=== PATIENT | male | born 1950 | race Caucasian/White ===

== ENCOUNTER 2017-04-10 16:02 | Emergency (ER) | payer MEDICARE, SELFPAY ==
[2017-04-10 16:12] VITALS: BP 150/97; PULSE 67; RESP 18; TEMP 36.7; O2SAT 97; BMI 20.9
[2017-04-10 16:27] VITALS: BMI 20.3
--- NOTE | 2017-04-10 16:41 | XR_ITS ---
EXAM: XR lumbar spine min 4V HISTORY: Back pain ITS.REASON: fall with pain COMPARISON: None FINDINGS: No acute fracture or dislocation is evident. There is multilevel degenerative disc disease from T12 to S1. There has been prior posterior fusion with interpedicular screws at L4 and L5. The interpedicular screws at L5 are somewhat angled inferiorly. It is unknown whether this is acute or normal postsurgical appearance. No obvious fracture of the screw is identified. Disc spacer device is present at L5-S1. There is 4 mm retrolisthesis of L2 on L3, There is 5 mm retrolisthesis of L2-3 on L4 and 4 mm retrolisthesis of L4 on L5. There are prominent anterior osteophytes at multiple levels. There is multilevel facet arthritic changes there is mild lumbar curvature convex left. IMPRESSION: 1. No definite acute fracture. 2. Postsurgical changes with lumbar spondylosis with degenerative disc disease, facet arthritic change, and osteophytosis
--- NOTE | 2017-04-10 16:45 | HMH.EDGENADL ---
ED Disposition Clinical Impression: Exacerbation of chronic back pain DJD (degenerative joint disease), lumbar Qualifiers: Spinal osteoarthritis complication: with radiculopathy Qualified Code(s): M47.26 - Other spondylosis with radiculopathy, lumbar region Disposition: Home, Self-Care Condition on Discharge: Good Instructions: DI for Low Back Pain Prescriptions: Cyclobenzaprine HCl [Flexeril 10mg tablet] 10 mg PO BID 30 Days #60 tab Gabapentin [Neurontin 600mg tablet] 600 mg PO TID #12 tab Ketorolac Tromethamine [Toradol 10mg tablet] 10 mg PO Q12H #10 tab Referrals: Inderjit Camilo MD [Staff Physician] - 3 days (chronic LBP s/p lumbar fixation, uses neurontin, out of medications. ) - Critical Care Critical Care Time: No Attestation: On 04/10/17, the high probability of a clinically significant, sudden or life threatening deterioration of the following system(s) required my full and direct attention, intervention and personal management. The time I documented below is in addition to time spent performing reported procedures but includes the following listed in this critical care notation. Medical Decision Making Vital Signs: 04/10/17 16:12 Temperature 98.0 F Temperature Source Oral Pulse Rate [Brachial] 67 Respiratory Rate 18 Blood Pressure [Right Arm] 150/97 Blood Pressure Mean [Right Arm] 114 Blood Pressure Source [Right Arm] Automatic Cuff Blood Pressure Position [Right Arm] Sitting 02 Sat by Pulse Oximetry 97 Oxygen Delivery Method Room Air Orders (Tests/Meds): ED MEDICATIONS Discontinued Medications Generic Name Dose Route Start Last Admin Trade Name Freq PRN Reason Stop Dose Admin Ketorolac Tromethamine 60 mg 04/10/17 16:43 Toradol 60mg/2ml Vial IM 04/10/17 16:44 ONCE ONE Ketorolac Tromethamine 60 mg 04/10/17 16:51 04/10/17 16:57 Toradol 60mg/2ml Vial IM 04/10/17 16:52 60 mg ONCE ONE Administration ORDERS Category Date Time Status Lumbar spine minimum 4 views [XR lumbar spine min 4V] Exams 04/10/17 16:41 Taken Stat - Radiology Data #1 Image Reviewed: Yes I reviewed the patient's radiology results Preliminary Findings: Abnormal (Postop changes, djd, no fracture or subluxation. ) - Kevin Inquiry Pt receiving controlled substance: No Kevin was queried for this patient: No General Adult HPI - General Chief complaint: Back Pain/Injury Stated complaint: AO [id number] Lower Back pain Mode of Arrival: Ambulatory Source of Information: Patient Limitations: No Limitations Description of Symptoms (Recalled from ER Triage Doc. by RN): back pain - History of Present Illness HPI narrative: 66 years old white male with history of spondylolithasis status post lumbar fixation 2012, he was cleaning chimney yesterday when he landed on his legs and had a wide split. Denies having direct back injury. Is been experiencing lower back pain that is radiating to both lower extremities since yesterday. Denies having weakness or numbness, is no loss of urine or bowel. Onset (ago): day(s) (Since yesterday.) Location: back, buttocks, lower extremity Radiation: extremity Severity scale (1-10): 6 Quality: sharp Consistency: constant Relieving factors: none, rest Exacerbating factors: movement Associated symptoms: denies other symptoms Treatments prior to arrival: none - Related Data Previous Rx's Medication Instructions Recorded Cyclobenzaprine HCl [Flexeril 10mg 10 mg PO BID 30 Days #60 tab 04/10/17 tablet] Gabapentin [Neurontin 600mg 600 mg PO TID #12 tab 04/10/17 tablet] Ketorolac Tromethamine [Toradol 10 mg PO Q12H #10 tab 04/10/17 10mg tablet] Allergies Allergy/AdvReac Type Severity Reaction Status Date / Time No Known Allergies Allergy Verified 04/10/17 16:41 [facility] History I have reviewed the patient's past medical history: Yes (I read the patient operative report from 2012.) Medical History: Re
--- NOTE | 2017-04-10 16:48 | ED_ITS ---
ED Disposition Clinical Impression: Exacerbation of chronic back pain DJD (degenerative joint disease), lumbar Qualifiers: Spinal osteoarthritis complication: with radiculopathy Qualified Code(s): M47.26 - Other spondylosis with radiculopathy, lumbar region Disposition: Home, Self-Care Condition on Discharge: Good Instructions: DI for Low Back Pain Prescriptions: Cyclobenzaprine HCl [Flexeril 10mg tablet] 10 mg PO BID 30 Days #60 tab Gabapentin [Neurontin 600mg tablet] 600 mg PO TID #12 tab Ketorolac Tromethamine [Toradol 10mg tablet] 10 mg PO Q12H #10 tab Referrals: Inderjit Camilo MD [Staff Physician] - 3 days (chronic LBP s/p lumbar fixation, uses neurontin, out of medications. ) - Critical Care Critical Care Time: No Attestation: On 04/10/17, the high probability of a clinically significant, sudden or life threatening deterioration of the following system(s) required my full and direct attention, intervention and personal management. The time I documented below is in addition to time spent performing reported procedures but includes the following listed in this critical care notation. Medical Decision Making Vital Signs: 04/10/17 16:12 Temperature 98.0 F Temperature Source Oral Pulse Rate [Brachial] 67 Respiratory Rate 18 Blood Pressure [Right Arm] 150/97 Blood Pressure Mean [Right Arm] 114 Blood Pressure Source [Right Arm] Automatic Cuff Blood Pressure Position [Right Arm] Sitting 02 Sat by Pulse Oximetry 97 Oxygen Delivery Method Room Air Orders (Tests/Meds): ED MEDICATIONS Discontinued Medications Generic Name Dose Route Start Last Admin Trade Name Freq PRN Reason Stop Dose Admin Ketorolac Tromethamine 60 mg 04/10/17 16:43 Toradol 60mg/2ml Vial IM 04/10/17 16:44 ONCE ONE Ketorolac Tromethamine 60 mg 04/10/17 16:51 04/10/17 16:57 Toradol 60mg/2ml Vial IM 04/10/17 16:52 60 mg ONCE ONE Administration ORDERS Category Date Time Status Lumbar spine minimum 4 views [XR lumbar spine min 4V] Exams 04/10/17 16:41 Taken Stat - Radiology Data #1 Image Reviewed: Yes I reviewed the patient's radiology results Preliminary Findings: Abnormal (Postop changes, djd, no fracture or subluxation. ) - Kevin Inquiry Pt receiving controlled substance: No Kevin was queried for this patient: No General Adult HPI - General Chief complaint: Back Pain/Injury Stated complaint: AO [id number] Lower Back pain Mode of Arrival: Ambulatory Source of Information: Patient Limitations: No Limitations Description of Symptoms (Recalled from ER Triage Doc. by RN): back pain - History of Present Illness HPI narrative: 66 years old white male with history of spondylolithasis status post lumbar fixation 2012, he was cleaning chimney yesterday when he landed on his legs and had a wide split. Denies having direct back injury. Is been experiencing lower back pain that is radiating to both lower extremities since yesterday. Denies having weakness or numbness, is no loss of urine or bowel. Onset (ago): day(s) (Since yesterday.) Location: back, buttocks, lower extremity Radiation: extremity Severity scale (1-10): 6 Quality: sharp Consistency: constant Relieving factors: none, rest Exacerbating factors: movement Associated symptoms: denies other s
[2017-04-10 18:13] VITALS: BP 147/85; PULSE 75; RESP 18; O2SAT 98
== END 2017-04-10 18:17 | disposition home or self-care (01) ==
PROVIDERS: Emergency Provider Emergency Medicine
DX: M47.26 Other spondylosis with radiculopathy, lumbar region (principal); J44.9 Chronic obstructive pulmonary disease, unspecified; F17.210 Nicotine dependence, cigarettes, uncomplicated; M54.5 Low back pain; Z79.899 Other long term (current) drug therapy
CPT/HCPCS: 72110; 96372; 99282; 99283

== ENCOUNTER → 2017-04-30 17:38 | Outpatient (REF) | payer MEDICARE, SELFPAY ==
[2017-05-01 17:14] LABS: Amphetamine/Metha Screen,Urine Negative ng/mL (<1000); Barbiturates Screen,Urine Negative ng/mL (<200); Benzodiazepines Screen,Urine Negative ng/mL (200); Cannabinoid Screen,Urine Negative ng/mL (<50); Cocaine Screen,Urine Negative ng/g (<300); Methadone Screen,Urine Negative ng/mL (<300); Opiate Screen,Urine Negative ng/mL (<300); Phencyclidine Screen,Urine Negative ng/mL (<25)
== END ==
LOC: LAB 17:38
PROVIDERS: Visit Provider Nurse Practitioner Family
DX: Z79.899 Other long term (current) drug therapy (principal); M54.9 Dorsalgia, unspecified
CPT/HCPCS: 80305

== ENCOUNTER → 2017-05-21 09:19 | Outpatient (CLI) | payer MEDICARE, MEDICAID, SELFPAY ==
--- NOTE | 2017-05-21 09:23 | MR_ITS ---
MR lumbar spine wo con HISTORY: Low back pain with bilateral leg pain and numbness and tingling ORDERING PHYSICIAN: Irvin Moore PATIENT AGE: 66 years COMPARISON: Radiograph of 04-10-17 TECHNIQUE: Standard multiplanar multiecho sequences are performed without contrast. 3-D MIP and myelographic images are also rendered and reviewed FINDINGS: Spinal cord ends at the L1 level. T11-T12: Mild degenerative disc disease with anterior osteophytes. T12-L1: Mild degenerative disc disease with bulging disc and mild left-sided foraminal narrowing. L1-L2: Anterior osteophytes. Minimal bulging disc. L2-L3: Anterior osteophytes with mild facet hypertrophy and mild bilateral foraminal narrowing. L3-L4: Severe degenerative disc disease with bulging disc and mild retrolisthesis of L3 of 2 to 3 mm. There is facet hypertrophic change with moderate right foraminal narrowing and [id number] left foraminal narrowing. Facet hypertrophic changes are present causing some minimal impingement on the nerve root on the right in the right lateral recess L4-5: Degenerative disc disease with bulging disc along facet and ligamentum flavum hypertrophy with moderate to severe bilateral foraminal narrowing L5-S1: Postsurgical changes with interpedicular screws at L5 and S1. Degenerative disc disease at level with mild bilateral foraminal narrowing and prominent artifact from the interpedicular screws. IMPRESSION: 1 Abnormal MRI lumbar spine with multilevel lumbar spondylosis with degenerative disc disease, bulging disc, facet and ligamentum flavum hypertrophy with lateral recess and foraminal narrowing as detailed above worse at the L3-L4 and L4-L5 level. Please see above for detailed description at each level. 2. Postsurgical changes at L5-S1. 3. No obvious disc herniation.
--- NOTE | 2017-05-21 09:23 | MR_ITS ---
MR cervical spine wo con, MR 3-d myelogram/MRCP HISTORY: Neck pain with bilateral arm weakness and bilateral shoulder pain with bilateral scapular pain. ORDERING PHYSICIAN: Irvin Moore PATIENT AGE: 66 years COMPARISON: None TECHNIQUE: Standard multiplanar multiecho sequences are performed without contrast. 3-D MIP and myelographic images are also rendered and reviewed FINDINGS: The craniocervical junction has an unremarkable appearance. C2-C3: Unremarkable. C3-C4: Disc disease with mild retrolisthesis of C3 by nearly 3 mm with broad-based disc osteophyte complex with canal stenosis of 8 mm and minimal flattening of the anterior aspect of the cord. There is bilateral foraminal narrowing with uncovertebral and facet hypertrophy C4-C5: Mild degenerative disc disease with bulging disc along with facet and uncovertebral hypertrophy with bilateral foraminal narrowing greater on the left. Minimal central disc protrusion C5-C6: Mild concentric bulging disc with 3 mm anterolisthesis of C5 with minimal flattening of the anterior aspect of the cord. Mild right foraminal narrowing. Minimal central disc protrusion with minimal flattening of the cord centrally and anteriorly. C6-C7: Degenerative disc disease with bulging disc eccentric to the left along with facet hypertrophy with bilateral foraminal narrowing and moderate left lateral recess narrowing and minimal flattening of the cord anteriorly on the left. Mild kyphosis at C6-C7. C7-T1: Degenerative disc disease. T2-T3: Degenerative disc disease with bulging disc. IMPRESSION: Abnormal MRI of the cervical spine with multilevel cervical spondylosis with bulging disc, disc osteophyte complexes, canal narrowing, facet and uncovertebral hypertrophy and foraminal narrowing. There is some mild flattening of the cord at multiple levels. Please see above for detail.
== END ==
PROVIDERS: PCP Nurse Practitioner Family; Visit Provider Orthopaedic Surgery Adult Reconstructive Orthopaedic Surgery
DX: M54.2 Cervicalgia (principal); M54.5 Low back pain
CPT/HCPCS: 72141; 72148; 76376

== ENCOUNTER 2017-06-07 11:52 | Emergency (ER) | payer MEDICARE, MEDICAID, SELFPAY ==
[2017-06-07 11:56] VITALS: BP 138/95; PULSE 86; RESP 20; TEMP 36.8; O2SAT 99; BMI 22.1
[2017-06-07 12:19] VITALS: BP 166/92; PULSE 99; RESP 20; TEMP 36.7; O2SAT 100; BMI 22.1
--- NOTE | 2017-06-07 12:22 | XR_ITS ---
XR knee LT 2V HISTORY: Posttraumatic pain ITS.REASON: FELL ORDERING PHYSICIAN: Emily Edmond PATIENT AGE: 66 years COMPARISON: None FINDINGS: There are mild osteoarthritic changes involving all 3 compartments greatest in the lateral compartment with chondrocalcinosis of both the medial and lateral meniscus. No acute fracture or dislocation is evident. IMPRESSION: Osteoarthritic change with chondrocalcinosis. No acute fracture
--- NOTE | 2017-06-07 12:57 | HMH.EDUTC ---
[facility] [place] Impression: Knee pain Qualifiers: Chronicity: acute Laterality: left Qualified Code(s): M25.562 - Pain in left knee Disposition: Home, Self-Care Condition on Discharge: Good Instructions: Contusion, DI for Knee Pain Additional Instructions: *weight bearing as tolerated *RICE, Rest the extremity, Ice 15-20 minutes 3-4 times daily, Compress- wear the rajendra wrap as discussed as much as possible to help reduce swelling and pain, Elevate the extremity when at rest *Rajendra wrap is for support and help control swelling, use it except in the shower. Be sure that is not to tight but not to loose either *Elevate when resting *Ibuprofen very 6-8 hours as needed for pain an inflammation. If need something more can take Tylenol in between doses of Ibuprofen to help Immediately follow up for new or worsening of symptoms, or no noticeable improvement over the next 3-5 days Prescriptions: Etodolac [Etodolac 200mg Cap] 200 mg PO Q6 PRN #20 cap PRN Reason: Moderate Pain Referrals: Fatemeh Damon APRN [Primary Care Provider] - Time of Disposition: 13:58 Medical Decision Making - Medical Records Medical records reviewed: Yes: I reviewed the patient's medical records. Vital Signs: 06/07/17 11:56 06/07/17 12:19 06/07/17 13:34 Temperature 98.3 F 98.1 F 20 F L Temperature Source Oral Temporal Artery Scan Pulse Rate 88 Pulse Rate [Right Radial] 86 99 H Respiratory Rate 20 20 20 Blood Pressure 160/90 Blood Pressure [Right Arm] 138/95 166/92 Blood Pressure Mean [Right Arm] 109 116 Blood Pressure Source [Right Arm] Automatic Cuff Automatic Cuff Blood Pressure Position [Right Arm] Sitting Sitting 02 Sat by Pulse Oximetry 99 100 Oxygen Delivery Method Room Air Room Air Orders (Tests/Meds): ORDERS Category Date Time Status Knee XR left 2 views [XR knee LT 2V] Stat Exams 06/07/17 12:22 Taken - Radiology Data #1 Image(s): Knee Image Reviewed: Yes I reviewed the patient's radiology results Preliminary Findings: No Fracture Seen No fracture seen will have Radiologist do official reading and call patient if any findings and have patient follow up with family doctor - Kevin Inquiry Pt receiving controlled substance: No Kevin was queried for this patient: No - Reevaluation(s) Time: 13:00 Reevaluation #1: Requested that ER physican Dr Rosas to view xray for second opinion [facility] [place] - General Stated complaint: AO fell hit knee on stairs Mode of Arrival: Ambulatory Source of Information: Patient Limitations: No Limitations Description of Symptoms (Recalled from Triage Doc. by RN): FELL 2 DAYS AGO, INJURED LEFT KNEE HEENT Symptoms (Recalled from RN notes): No Resp Symptoms (Recalled from RN notes): No Skin Symptoms (Recalled from RN notes): No MS Symptoms (Recalled from RN notes): Yes Functional Status (Recalled from RN notes): N - History of Present Illness Provider Complaint: Patient state that he was walking up steps when he tripped and fell and struck his knee on the stairs States that ever since he has been having pain in his knee when he tries to bend his knee State he fell two days ago and has been putting ice on it but still feels sore so he came in to get xray - Related Data Home Medications Medication Instructions Recorded Confirmed gabapentin 600 mg tablet 600 mg PO TID 04/30/17 hydrocodone 10 mg-acetaminophen 1 tab PO Q4-6H PRN 04/30/17 325 mg tablet Previous Rx's Medication Instructions Recorded Cyclobenzaprine HCl [Flexeril 10mg 10 mg PO BID 30 Days #60 tab 04/10/17 tablet] lisinopril 30 mg tablet 30 mg PO QDAY #30 tab 04/30/17 Etodolac [Etodolac 200mg Cap] 200 mg PO Q6 PRN #20 cap 06/07/17 Allergies Allergy/AdvReac Type Severity Reaction Status Date / Time No Known Allergies Allergy Verified 04/30/17 15:49 - Worker's Comp Is this a Worker's Comp case?: No [facility] History I have reviewed the patient's past medical hist
--- NOTE | 2017-06-07 13:04 | ED_ITS ---
[facility] [place]ression: Knee pain Qualifiers: Chronicity: acute Laterality: left Qualified Code(s): M25.562 - Pain in left knee Disposition: Home, Self-Care Condition on Discharge: Good Instructions: Contusion, DI for Knee Pain Additional Instructions: *weight bearing as tolerated *RICE, Rest the extremity, Ice 15-20 minutes 3-4 times daily, Compress- wear the rajendra wrap as discussed as much as possible to help reduce swelling and pain, Elevate the extremity when at rest *Rajendra wrap is for support and help control swelling, use it except in the shower. Be sure that is not to tight but not to loose either *Elevate when resting *Ibuprofen very 6-8 hours as needed for pain an inflammation. If need something more can take Tylenol in between doses of Ibuprofen to help Immediately follow up for new or worsening of symptoms, or no noticeable improvement over the next 3-5 days Prescriptions: Etodolac [Etodolac 200mg Cap] 200 mg PO Q6 PRN #20 cap PRN Reason: Moderate Pain Referrals: Fatemeh Damon APRN [Primary Care Provider] - Time of Disposition: 13:58 Medical Decision Making - Medical Records Medical records reviewed: Yes: I reviewed the patient's medical records. Vital Signs: 06/07/17 11:56 06/07/17 12:19 06/07/17 13:34 Temperature 98.3 F 98.1 F 20 F L Temperature Source Oral Temporal Artery Scan Pulse Rate 88 Pulse Rate [Right Radial] 86 99 H Respiratory Rate 20 20 20 Blood Pressure 160/90 Blood Pressure [Right Arm] 138/95 166/92 Blood Pressure Mean [Right Arm] 109 116 Blood Pressure Source [Right Arm] Automatic Cuff Automatic Cuff Blood Pressure Position [Right Arm] Sitting Sitting 02 Sat by Pulse Oximetry 99 100 Oxygen Delivery Method Room Air Room Air Orders (Tests/Meds): ORDERS Category Date Time Status Knee XR left 2 views [XR knee LT 2V] Stat Exams 06/07/17 12:22 Taken - Radiology Data #1 Image(s): Knee Image Reviewed: Yes I reviewed the patient's radiology results Preliminary Findings: No Fracture Seen No fracture seen will have Radiologist do official reading and call patient if any findings and have patient follow up with family doctor - Kevin Inquiry Pt receiving controlled substance: No Kevin was queried for this patient: No - Reevaluation(s) Time: 13:00 Reevaluation #1: Requested that ER physican Dr Rosas to view xray for second opinion [facility] [place] - General Stated complaint: AO fell hit knee on stairs Mode of Arrival: Ambulatory Source of Information: Patient Limitations: No Limitations Description of Symptoms (Recalled from Triage Doc. by RN): FELL 2 DAYS AGO, INJURED LEFT KNEE HEENT Symptoms (Recalled from RN notes): No Resp Symptoms (Recalled from RN notes): No Skin Symptoms (Recalled from RN notes): No MS Symptoms (Recalled from RN notes): Yes Functional Status (Recalled from RN notes): N - History of Present Illness Provider Complaint: Patient state that he was walking up steps when he tripped and fell and struck his knee on the stairs States that ever since he has been having pain in his knee when he tries to bend his knee State he fell two days ago and has been putting ice on it but still feels sore so he came in to get xray - Related Data Home Medications Medication Instructions Recorded Confirmed gabapentin 600 mg tablet 600 mg PO TID 04/30/17 hy
[2017-06-07 13:34] VITALS: BP 160/90; PULSE 88; RESP 20; TEMP -6.6; TEMP 20
== END 2017-06-07 14:16 | disposition home or self-care (01) ==
LOC: ER 12:06 → UTC 12:08
PROVIDERS: Emergency Provider Nurse Practitioner; PCP Nurse Practitioner Family
DX: M25.562 Pain in left knee (principal); W18.43XA Slipping, tripping and stumbling without falling due to stepping from one level to another, initial encounter
CPT/HCPCS: 73560; 99202

== ENCOUNTER → 2017-06-19 14:31 | Outpatient (POV) | payer MEDICARE, MEDICAID, SELFPAY ==
[2017-06-19 14:44] VITALS: BP 204/118; PULSE 104; RESP 24; O2SAT 99; BMI 22.1
--- NOTE | 2017-06-19 16:11 | HMH.PMCON ---
Assessment and Plan (1) Postlaminectomy syndrome Current visit: Yes Status: Chronic Category: Medical Code(s): M96.1 - Postlaminectomy syndrome, not elsewhere classified (2) Neck pain Current visit: No Status: Chronic Category: Medical Code(s): M54.2 - Cervicalgia (3) Back pain Current visit: No Status: Chronic Qualifiers: Back pain location: low back pain Chronicity: chronic Back pain laterality: midline Sciatica presence: unspecified whether sciatica present Qualified Code(s): M54.5 - Low back pain; G89.29 - Other chronic pain Category: Medical Code(s): M54.9 - Dorsalgia, unspecified - Assessment and plan all Dx Assessment and Plan for all problems:: Patient and I discussed in great detail intrathecal pain pump therapy. I believe that this would be very advantageous for the patient due to his symptomology along with his continuing degeneration. Patient has tried and failed injections, surgery, physical therapy. I believe that this therapy would help him become more functional. We discussed the psychological evaluation and trialing process. I gave the patient information on this and he is going to discuss with his and call the office with any questions. If he decides that he would like to move forward with this therapy we would be more than happy to schedule him a psychological evaluation. Patient is asking about medications today. I told him that it was our policy that we do not write any medications on the initial evaluation. I also discussed the necessity of being off opioids prior to intrathecal pain pump trial. We will follow-up with this patient if he decides to move forward with intrathecal pain pump therapy. This note was dictated using voice recognition software and may contain errors or omissions HPI - Data of Consult Consult date: 06/19/17 Requesting Physician: Lucy Grace APRN Primary Care Provider: Fatemeh Damon APRN - Consult Narrative Reason for consult: back and neck pain History of present illness: Mr. Ferguson is a 66 year old male who presents today for consult in regards to his chronic neck and back pain. Patient has had surgery in the past. Patient has had a gradual increase of pain over the years. Patient lived in [place] and had his first surgery there. Patient then moved to [place] and then eventually to [place]. Patient was seen by a pain physician in [place] and given mole injections including epidurals and trigger point injections. Patient states he got no relief from these injections. Patient states his pain is a 7 out of 10. He states that his pain goes from his neck and radiates into his shoulders and then from his low back radiating into his bilateral legs. He states it is numb and tingling and has sensation loss in both legs. Patient states movement and positioning increased pain while lying flat on back with pillows under his knees decrease pain. Patient has tried multiple medications to get pain relief. Patient states that at this time he is not on any pain medication. Patient has been seen by Dr. Boateng being [place] and was sent to a neurosurgeon in [place] however he was unable to make that appointment. Patient does have a recent MRI showing postlaminectomy syndrome and other chronic changes. Patient and I discussed in detail her intrathecal pain pump therapy. I believe that this will be very beneficial for him given his symptomology. CC: Lucy Grace APRN [facility] History I have reviewed the patient's past medical history: Yes Medical History: Reports:: Hypertension Other Medical History: Reports: Arthritis Other Surgeries: Yes: Other (BACK FUSIONS) Amputation: No Fractures: No - *Social History Educational Level: Completed High School Smoking Status: Current every day smoker Tobacco Type: cigarettes # Packs/Day (cigarettes): 5 Alcohol Intake: never Substance Use Type: denies use Occupational Status: disabled
--- NOTE | 2017-06-19 16:14 | P.CONS_ITS ---
Assessment and Plan (1) Postlaminectomy syndrome Current visit: Yes Status: Chronic Category: Medical Code(s): M96.1 - Postlaminectomy syndrome, not elsewhere classified (2) Neck pain Current visit: No Status: Chronic Category: Medical Code(s): M54.2 - Cervicalgia (3) Back pain Current visit: No Status: Chronic Qualifiers: Back pain location: low back pain Chronicity: chronic Back pain laterality: midline Sciatica presence: unspecified whether sciatica present Qualified Code(s): M54.5 - Low back pain; G89.29 - Other chronic pain Category: Medical Code(s): M54.9 - Dorsalgia, unspecified - Assessment and plan all Dx Assessment and Plan for all problems:: Patient and I discussed in great detail intrathecal pain pump therapy. I believe that this would be very advantageous for the patient due to his symptomology along with his continuing degeneration. Patient has tried and failed injections, surgery, physical therapy. I believe that this therapy would help him become more functional. We discussed the psychological evaluation and trialing process. I gave the patient information on this and he is going to discuss with his and call the office with any questions. If he decides that he would like to move forward with this therapy we would be more than happy to schedule him a psychological evaluation. Patient is asking about medications today. I told him that it was our policy that we do not write any medications on the initial evaluation. I also discussed the necessity of being off opioids prior to intrathecal pain pump trial. We will follow-up with this patient if he decides to move forward with intrathecal pain pump therapy. This note was dictated using voice recognition software and may contain errors or omissions HPI - Data of Consult Consult date: 06/19/17 Requesting Physician: Lucy Grace APRN Primary Care Provider: Fatemeh Damon APRN - Consult Narrative Reason for consult: back and neck pain History of present illness: Mr. Ferguson is a 66 year old male who presents today for consult in regards to his chronic neck and back pain. Patient has had surgery in the past. Patient has had a gradual increase of pain over the years. Patient lived in [place] and had his first surgery there. Patient then moved to [place] and then eventually to [place]. Patient was seen by a pain physician in [place] and given mole injections including epidurals and trigger point injections. Patient states he got no relief from these injections. Patient states his pain is a 7 out of 10. He states that his pain goes from his neck and radiates into his shoulders and then from his low back radiating into his bilateral legs. He states it is numb and tingling and has sensation loss in both legs. Patient states movement and positioning increased pain while lying flat on back with pillows under his knees decrease pain. Patient has tried multiple medications to get pain relief. Patient states that at this time he is not on any pain medication. Patient has been seen by Dr. Boateng being [place] and was sent to a neurosurgeon in [place] however he was unable to make that appointment. Patient does have a recent MRI showing postlaminectomy syndrome and other chronic changes. Patient and I discussed in detail her intrathecal pain pump therapy. I believe that this will be very beneficial for him given his symptomology. CC: Lucy Grace APRN [facility] History I have reviewed the patient's past medical history: Yes Medical History: Reports:: Hypertension Other Medical History: Reports: Arthritis Other Surgeries:
== END ==
PROVIDERS: PCP Nurse Practitioner Family; Visit Provider Clinical Nurse Specialist Family Health
DX: M96.1 Postlaminectomy syndrome, not elsewhere classified (principal); M54.2 Cervicalgia
CPT/HCPCS: 99202

== ENCOUNTER → 2017-08-27 13:30 | Outpatient (POV) | payer MEDICARE, MEDICAID, SELFPAY ==
[2017-08-27 13:31] VITALS: BP 129/99; PULSE 107; RESP 20; O2SAT 99; BMI 22.1
--- NOTE | 2017-08-27 13:51 | HMH.PAINSOAP ---
[facility] Pain Management SOAP Note Subjective:: Is a 66-year-old male who presents today for follow-up. Patient was consulted back in June. Patient was given information on intrathecal pain pump therapy. Patient is uninterested in this at this time. Patient states he would like medication. Patient states that it is only thing that works for him. Patient does not want to do any injections nor any other conservative measures. Patient has been seen by a pain physician in [place]. Patient states he is tried multiple medications for pain relief. Patient states he is being medically managed currently by Dr. Mathur. Patient states that Dr. Mathur is no longer going to medically manage him in and was told to go somewhere else. I discussed with the patient that we try to stay away from opioids. Patient is uninterested in this. I did discuss a neurostimulator with the patient he was also interested in this. I discussed with the patient potential other pain management. Patient states he does not have transportation to go to any other doctors appointments. This concerns me due to potential pill count failures or other compliance monitoring issues. And is unhappy at this time with this assessment. Patient rates his pain a 6 out of 10 today. ROS General: no recent weight change, no fever, no sleep disturbances Respiratory: no cough, no shortness of air, no recurring pulmonary infections Cardiovascular/Peripheral Vascular: No chest pain, No palpitations, no edema, no shortness of breath. Gastrointestinal: no incontinence, normal bowel movements reported Genitourinary: no incontinence Musculoskeletal: Back pain Psychiatric: normal mood/ affect Neurological: [denies weakness in extremities], [denies balance issues] Objective:: Physical Exam General: Alert and oriented x3, no acute distress, pleasant and cooperative, [on room air] Lungs: Resps E/U, Symmetrical chest expansion, Eyes: PERRL Musculoskeletal: Flexion and extension of lumbar spine somewhat guarded secondary to pain, deep tendon reflexes normal, strength in upper and lower extremities [5/5], [abnormal gait noted] Neurological: speech clear, featheredger and reducer machine equal, no gross sensory deficits Assessment:: Postlaminectomy syndrome, neck pain, back pain Plan:: Patient upset when he left. Patient interested in medication management only. I gave him several options he was uninterested in this. I recommended he follow-up with his primary care physician. I also recommended he potentially go to another pain management clinic however he states that he has transportation issues. Patient states that his insurance is just being charged and he is having to pay for multiple physician appointments. Patient will not be returning. This note was dictated using voice recognition software and may contain errors or omissions
--- NOTE | 2017-08-27 13:55 | P.CONS_ITS ---
[facility] Pain Management SOAP Note Subjective:: Is a 66-year-old male who presents today for follow-up. Patient was consulted back in June. Patient was given information on intrathecal pain pump therapy. Patient is uninterested in this at this time. Patient states he would like medication. Patient states that it is only thing that works for him. Patient does not want to do any injections nor any other conservative measures. Patient has been seen by a pain physician in [place]. Patient states he is tried multiple medications for pain relief. Patient states he is being medically managed currently by Dr. Mathur. Patient states that Dr. Mathur is no longer going to medically manage him in and was told to go somewhere else. I discussed with the patient that we try to stay away from opioids. Patient is uninterested in this. I did discuss a neurostimulator with the patient he was also interested in this. I discussed with the patient potential other pain management. Patient states he does not have transportation to go to any other doctors appointments. This concerns me due to potential pill count failures or other compliance monitoring issues. And is unhappy at this time with this assessment. Patient rates his pain a 6 out of 10 today. ROS General: no recent weight change, no fever, no sleep disturbances Respiratory: no cough, no shortness of air, no recurring pulmonary infections Cardiovascular/Peripheral Vascular: No chest pain, No palpitations, no edema, no shortness of breath. Gastrointestinal: no incontinence, normal bowel movements reported Genitourinary: no incontinence Musculoskeletal: Back pain Psychiatric: normal mood/ affect Neurological: [denies weakness in extremities], [denies balance issues] Objective:: Physical Exam General: Alert and oriented x3, no acute distress, pleasant and cooperative, [ on room air] Lungs: Resps E/U, Symmetrical chest expansion, Eyes: PERRL Musculoskeletal: Flexion and extension of lumbar spine somewhat guarded secondary to pain, deep tendon reflexes normal, strength in upper and lower extremities [5/5], [abnormal gait noted] Neurological: speech clear, fashion supervisor equal, no gross sensory deficits Assessment:: Postlaminectomy syndrome, neck pain, back pain Plan:: Patient upset when he left. Patient interested in medication management only. I gave him several options he was uninterested in this. I recommended he follow -up with his primary care physician. I also recommended he potentially go to another pain management clinic however he states that he has transportation issues. Patient states that his insurance is just being charged and he is having to pay for multiple physician appointments. Patient will not be returning. This note was dictated using voice recognition software and may contain errors or omissions
== END ==
PROVIDERS: PCP Emergency Medicine; Visit Provider Clinical Nurse Specialist Family Health
DX: M54.9 Dorsalgia, unspecified (principal); M54.2 Cervicalgia
CPT/HCPCS: 99212

== ENCOUNTER → 2017-08-29 09:05 | Outpatient (CLI) | payer MEDICARE, MEDICAID, SELFPAY ==
[2017-08-29 09:16] LABS: Microscopic, Urine URINE MICROSCOPIC (MICROSCOPIC)
[2017-08-29 09:44] LABS: Basophils # 0.1 K/mm3 (0-0.2); Basophils % 0.7 % (0.1-2.0); Eosinophils # 0.2 K/mm3 (0.0-0.4); Eosinophils % 1.7 % (0.1-12.0); Hematocrit 37.1 % (42.0-52.0); Hemoglobin 12.3 g/dL (14.1-18.0); Lymphocytes # 2.4 K/mm3 (0.7-4.5); Lymphocytes % 28.1 K/mm3 (10-50); Mean Corpuscular HGB Conc 33.2 g/dL (31.8-35.4); Mean Corpuscular Hemoglobin 29.2 pg (27.0-31.2); Mean Corpuscular Volume 88.1 fl (80-94); Monocytes # 0.6 K/mm3 (0.1-1.0); Monocytes % 7.4 % (1.7-9.3); Neutrophils # 5.3 K/mm3 (1.8-7.8); Platelet Count 617 K/mm3 (142-424); Red Blood Count 4.21 M/mm3 (4.60-6.20); White Blood Count 8.5 K/mm3 (4.8-10.8)
[2017-08-29 10:13] LABS: Creatinine,Urine Random 291 mg/dL (20-320); Total Protein,Urine Random 49.1 mg/dL (0.0-11.9)
[2017-08-29 11:33] LABS: Appearance,Urine CLEAR (Clear); Bilirubin,Urine Negative (Negative); Blood, Urine Negative (Negative); Color,Urine YELLOW (Yellow); Glucose,Urine (UA) Negative (Negative); Ketones,Urine Negative (Negative); Leukocyte Esterase,Urine Negative (Negative); Nitrate,Urine Negative (Negative); Protein,Urine 1+ (Negative); Specific Gravity, Urine >= 1.030 (1.005-1.030); Urobilinogen,Urine 0.2 EU/dl (0.2)
[2017-08-29 11:43] LABS: Anion Gap 14.1 mEq/L (5-15); Blood Urea Nitrogen 19 mg/dL (7-18); Calcium 9.5 mg/dL (8.5-10.1); Carbon Dioxide 28 mmol/L (21.0-32.0); Chloride 101 mmol/L (98-107); Estimated Glomerular Filt Rate 61 ml/min (>60); GFR (African American) 74 ML/MIN (>60); Glucose 96 mg/dL (74-106); Phosphorous 4.3 mg/dL (2.4-4.9); Potassium 4.1 mmoL/L (3.5-5.1); Sodium 139 mmol/L (136-145)
[2017-08-29 11:49] LABS: Bacteria,Urine 1+ /lpf; Mucus,Urine 1+ /lpf
== END ==
PROVIDERS: Visit Provider Internal Medicine Nephrology
DX: Z00.00 Encounter for general adult medical examination without abnormal findings (principal); Z79.899 Other long term (current) drug therapy
CPT/HCPCS: 36415; 80069; 81001; 82570; 84155; 85025

== ENCOUNTER 2017-11-29 16:17 | Inpatient (IN) ==
--- NOTE | 2017-11-29 16:52 | Emergency Department Note ---
ED Disposition Clinical Impression: Altered mental status, Chronic back pain Disposition: Still a Patient Condition on Discharge: Fair Instructions: DI for Altered Mental Status Referrals: Liang Jones MD [Primary Care Provider] - - Critical Care Critical Care Time: No Attestation: On 11/29/17, the high probability of a clinically significant, sudden or life threatening deterioration of the following system(s) required my full and direct attention, intervention and personal management. The time I documented below is in addition to time spent performing reported procedures but includes the following listed in this critical care notation. Medical Decision Making - Kevin Inquiry Pt receiving controlled substance: No Kevin was queried for this patient: No Vital Signs: 11/29/17 16:19 11/29/17 16:48 Temperature 98.6 F Temperature Source Oral Pulse Rate [Right] 95 H 92 H Respiratory Rate 20 Blood Pressure [Right Arm] 121/83 119/80 Blood Pressure Mean [Right Arm] 95 93 Blood Pressure Source [Right Arm] Automatic Cuff Blood Pressure Position [Right Arm] Sitting 02 Sat by Pulse Oximetry 92 L 95 Oxygen Delivery Method Nasal Cannula Orders (Tests/Meds): ORDERS Category Date Time Status CT head/brain wo con Stat Cat Scan 11/29/17 16:27 Ordered XR chest portable Stat Exams 11/29/17 16:46 Ordered Ammonia Stat Lab 11/29/17 16:46 Ordered Complete Blood Count Auto Diff Stat Lab 11/29/17 16:27 Ordered Comprehensive Metabolic Panel Stat Lab 11/29/17 16:27 Ordered Drug Screen,Urine Stat Lab 11/29/17 16:27 Ordered Ethyl Alcohol Stat Lab 11/29/17 16:27 Ordered Lactic Acid Stat Lab 11/29/17 16:27 Ordered Urinalysis and Microscopic Stat Lab 11/29/17 16:46 Ordered Blood Culture Stat Micro 11/29/17 16:48 Ordered ABG [Arterial Blood Gas] Stat RT 11/29/17 16:47 Ordered ECG Request by /Nse Stat Y 11/29/17 16:48 Ordered General Adult HPI - General Chief complaint: Altered Mental Status Stated complaint: Altered mental status Time Seen by Provider: 11/29/17 16:20 Mode of Arrival: EMS Limitations: No Limitations Description of Symptoms (Recalled from ER Triage Doc. by RN): Per EMS pt stated he has had mental status changes today and has been more lethargic. - History of Present Illness HPI narrative: 67 years old white male with history of cervical DJD, chronic LBP, COPD and renal failure on no dialysis who was recently discharged from [facility] 2 weeks ago. The reports that the patient has been experiencing back pain and using his Neurontin until he was [place] confused this morning. He did have an episode of intermittent chest pain yesterday. In the ED he denies chest pain shortness of breath nausea vomiting or diarrhea. He was found to be incontinent to stool. Onset (ago): hour(s) Radiation: non-radiation Consistency: constant Relieving factors: none Exacerbating factors: none Associated symptoms: confusion Treatments prior to arrival: other (Patient uses Neurontin for his back pain.) - Related Data Home Medications Medication Instructions Recorded Confirmed Cyclobenzaprine HCl [Flexeril 10mg 10 mg PO BID 08/10/17 11/29/17 tablet] RX: Lisinopril [Lisinopril 30mg 30 mg PO DAILY 08/10/17 11/29/17 Tablet] RX: Gabapentin [Neurontin 800mg 800 mg PO TID 11/29/17 11/29/17 Tab] RX: Tramadol HCl [Ultram Take Home 50 mg PO Q8H 11/29/17 11/29/17 Pack 50mg (10)] Previous Rx's Medication Instructions Recorded Dicyclomine HCl [Bentyl 10mg 20 mg PO TIDP PRN #30 cap 08/15/17 capsule] Allergies Allergy/AdvReac Type Severity Reaction Status Date / Time No Known Allergies Allergy Verified 11/26/17 16:48 [facility] History I have reviewed the patient's past medical history: Yes Medical History: Reports:: Hypertension, Kidney Stones Denies:: Cancer, Diabetes Mellitus Type 1, Diabetes Mellitus Type 2, MRSA Other Medical History: Reports: Arthritis Other Surgeries: Yes: Other Amputation: No Fractures: No - Social History Smoking Status: Current every day smoker Tobacco Type: cigarettes # Packs/Day (cigarettes): 1 Alcohol Intake: never Alcohol Intake Frequency:: a few times a month Substance Use Type: denies use Occupational Status: disabled - Psychiatric History Expresses thoughts of harming self/others: None Suicide Plan Description: No Plan Family Hx:: Cancer ROS Obtained: Yes All systems reviewed & no additional complaints Physical Exam - General General appearance: in no apparent distress, lethargic, other (Patient is lethargic but arousable and responds to questions and orders appropriatly. ) - Head Head exam: atraumatic, normocephalic, normal inspection - Eye Eye exam: Present: normal appearance, PERRL, EOMI. Absent: scleral icterus, nystagmus - ENT ENT exam: Present: normal exam, normal oropharynx, mucous membranes moist, TM's normal bilaterally, normal external ear exam - Neck Neck exam: Present: normal inspection, full ROM, trachea midline. Absent: tenderness, meningismus, lymphadenopathy - Chest Chest inspection: Present: normal inspection, symmetric chest wall rise. Absent : tenderness - Respiratory Respiratory exam: Present: normal lung sounds bilaterally. Absent: respiratory distress, wheezes - Cardiovascular Cardiovascular exam: Present: regular rate, normal rhythm, normal heart sounds. Absent: JVD - Abdominal Exam Abdominal exam: Present: soft, normal bowel sounds. Absent: distention, tenderness, guarding, rebound, rigidity - Extremities Exam Extremities exam: Present: normal inspection, full ROM, normal capillary refill. Absent: tenderness, calf tenderness, other (He does have flapping tremors of the upper extremities I added ammonia to his blood. ) - Back Exam Back exam: Present: normal inspection. Absent: tenderness - Neurological Exam Neurological exam: Present: alert, CN II-XII intact, motor sensory deficit, other (He is alert but he is oriented to his being in the hospital and was off on the days by 1 day. ) - Psychiatric Psychiatric exam: Present: normal affect, normal mood - Skin Skin exam: Present: warm, dry, intact, normal color - Lymphatic Lymphatic Findings: no adenopathy
[2017-11-29 17:03] LABS: ABG Base Excess 1.2 mmol/L (-2.4-2.3); ABG HCO3 24.8 mmhg (22.0-26.0); ABG Oxygen Saturation 56 % (90-100); ABG PCO2 34.6 mmhg (35.0-45.0); ABG PH 7.47 mmol/L (7.35-7.45); ABG TCO2 25.9 mmhg (23-27)
[2017-11-29 17:16] LABS: Basophils # 0.2 K/mm3 (0-0.2); Basophils % 0.5 % (0.1-2.0); Eosinophils # 0.3 K/mm3 (0.0-0.4); Hematocrit 35.9 % (42.0-52.0); Hemoglobin 11.3 g/dL (14.1-18.0); Lymphocytes % 6.6 K/mm3 (10-50); Mean Corpuscular HGB Conc 31.6 g/dL (31.8-35.4); Mean Corpuscular Hemoglobin 28.2 pg (27.0-31.2); Mean Corpuscular Volume 89.1 fl (80-94); Mean Platelet Volume 6.8 fl (7.4-10.4); Monocytes # 0.8 K/mm3 (0.1-1.0); Monocytes % 2.7 % (1.7-9.3); Neutrophils # 26.5 K/mm3 (1.8-7.8); Neutrophils % 89.2 % (37.0-80.0); Platelet Count 880 K/mm3 (142-424); Red Blood Count 4.03 M/mm3 (4.60-6.20); Red Cell Distribution Width 15.9 % (11.5-17.5); White Blood Count 29.7 K/mm3 (4.8-10.8)
[2017-11-29 17:23] LABS: Oxygen ROOM AIR %
[2017-11-29 17:25] LABS: ABG PO2 27.6 mmhg (80-100)
[2017-11-29 17:33] LABS: Alanine Aminotransferase 17 U/L (12-78); Albumin Level 2.4 gm/dL (3.4-5.0); Albumin/Globulin Ratio 0.5 (1.1-1.8); Alkaline Phosphatase 103 U/L (46-116); Aspartate Amino Transferase 23 U/L (15-37); Bilirubin,Total 0.4 mg/dL (0.2-1.0); Blood Urea Nitrogen 10 mg/dL (7-18); Calcium 8.9 mg/dL (8.5-10.1); Carbon Dioxide 27 mmol/L (21.0-32.0); Chloride 99 mmol/L (98-107); Globulin 4.6 gm/dl (1.3-3.2); Glucose 136 mg/dL (74-106); Sodium 135 mmol/L (136-145)
[2017-11-29 17:35] LABS: Ethyl Alcohol < 3 mg/dL (0-99)
[2017-11-29 17:47] LABS: Eosinophils % 2 % (0-3); Lymphocytes % 11 % (10-50); Monocytes % 4 % (2-9); Neutrophils % 81 % (42-76); RBC Morphology Normal; Total Cells Counted 100
[2017-11-29 17:55] LABS: Microscopic, Urine URINE MICROSCOPIC (MICROSCOPIC)
[2017-11-29 17:56] LABS: Appearance,Urine CLEAR (Clear); Bilirubin,Urine Negative (Negative); Blood, Urine TRACE-L (Negative); Color,Urine YELLOW (Yellow); Glucose,Urine (UA) Negative (Negative); Ketones,Urine Negative (Negative); Leukocyte Esterase,Urine Negative (Negative); Protein,Urine TRACE (Negative); Specific Gravity, Urine 1.025 (1.005-1.030); Urobilinogen,Urine 0.2 EU/dl (0.2)
[2017-11-29 18:04] LABS: Amphetamine/Metha Screen,Urine Negative ng/mL (<1000); Barbiturates Screen,Urine Negative ng/mL (<200); Benzodiazepines Screen,Urine Negative ng/mL (<200); Cannabinoid Screen,Urine Negative ng/mL (<50); Cocaine Screen,Urine Negative ng/mL (<300); Methadone Screen,Urine Negative ng/mL (<300); Opiate Screen,Urine Negative ng/mL (<300); Phencyclidine Screen,Urine Negative ng/mL (<25)
[2017-11-29 18:07] LABS: Bacteria,Urine 1+ /lpf; Squamous Epithelial Cell,Urine Occasional #/hpf (0-5); WBC,Urine Occasional #/hpf (0-3)
[2017-11-30 06:54] LABS: Anion Gap 9.6 mEq/L (5-15); Calcium 8.4 mg/dL (8.5-10.1); Potassium 3.6 mmoL/L (3.5-5.1)
[2017-11-30 06:55] LABS: Basophils # 0.1 K/mm3 (0-0.2); Basophils % 0.3 % (0.1-2.0); Eosinophils # 0.1 K/mm3 (0.0-0.4); Eosinophils % 0.4 % (0.1-12.0); Hematocrit 30.8 % (42.0-52.0); Lymphocytes # 2.1 K/mm3 (0.7-4.5); Lymphocytes % 12.2 K/mm3 (10-50); Mean Corpuscular HGB Conc 31.6 g/dL (31.8-35.4); Mean Corpuscular Hemoglobin 28.1 pg (27.0-31.2); Mean Corpuscular Volume 88.9 fl (80-94); Mean Platelet Volume 7.3 fl (7.4-10.4); Monocytes % 6.1 % (1.7-9.3); Neutrophils # 13.6 K/mm3 (1.8-7.8); Neutrophils % 81.1 % (37.0-80.0); Platelet Count 762 K/mm3 (142-424); Red Blood Count 3.47 M/mm3 (4.60-6.20); Red Cell Distribution Width 15.9 % (11.5-17.5); White Blood Count 16.8 K/mm3 (4.8-10.8)
[2017-11-30 07:29] LABS: Hemoglobin 9.8 g/dL (14.1-18.0)
--- NOTE | 2017-11-30 08:10 | Pharmacy Consult Notes ---
[facility] Pharmacy VTE Monitoring - Patient Demographics Admission date: 11/29/17 Report Date: 11/30/17 Time: 08:09 Allergies/Adverse Reactions: Patient Allergies No Known Allergies Allergy (Verified 11/26/17 16:48) Height: 1.75 m Weight: 63.985 kg Patient Problems: Current Active Problems Altered mental status (Acute) Chronic back pain (Acute) - VTE Risk Labs: VTE Related Lab Results Hgb 9.8 g/dL (14.1-18.0) L D 11/30/17 05:05 Hct 30.8 % (42.0-52.0) L 11/30/17 05:05 Plt Count 762 K/mm3 (142-424) H 11/30/17 05:05 BUN 8 mg/dL (7-18) 11/30/17 05:05 Creatinine 1.07 mg/dL (0.70-1.30) 11/30/17 05:05 Estimated Creat Clear 62 mL/min (0-300) 11/30/17 05:05 Clinical Trial Participant: No - Prophylaxis VTE Prophylaxis Ordered?: Yes Types of VTE Prophylaxis: TEDS Knee High
[2017-11-30 08:41] LABS: ABG Base Excess 3.9 mmol/L (-2.4-2.3); ABG HCO3 27.2 mmhg (22.0-26.0); ABG Oxygen Saturation 93 % (90-100); ABG PCO2 36.2 mmhg (35.0-45.0); ABG PH 7.49 mmol/L (7.35-7.45); ABG PO2 62.3 mmhg (80-100); ABG TCO2 28.3 mmhg (23-27)
[2017-11-30 08:43] LABS: Oxygen 100% %
[2017-11-30 08:44] LABS: Allen's Test Acceptable
--- NOTE | 2017-11-30 09:03 | Pharmacy Consult Notes ---
- Pharmacy Consult Date: 11/30/17 Time: 08:58 Referring provider: DR. HOLLINGSWORTH Reason for Consult:: VANCOMYCIN DOSING Allergies and ADEs:: Allergies Allergy/AdvReac Type Severity Reaction Status Date / Time No Known Allergies Allergy Verified 11/26/17 16:48 Home Medications:: Home Medications Medication Instructions Recorded Confirmed Type Cyclobenzaprine HCl [Flexeril 10mg 10 mg PO BID 08/10/17 11/29/17 History tablet] Lisinopril [Lisinopril 30mg Tablet] 30 mg PO DAILY 08/10/17 11/29/17 History Gabapentin [Neurontin 800mg Tab] 800 mg PO TID 11/29/17 11/29/17 History Tramadol HCl [Ultram Take Home 50 mg PO Q8H 11/29/17 11/29/17 History Pack 50mg (10)] Height: 1.75 m Weight: 63.985 kg Laboratory Results:: Laboratory Results - last 24 hr 11/29/17 16:49: Specimen Source R. radial, O2 % Room air, ABG pH 7.47 H, ABG pCO2 34.6 L, ABG pO2 27.6 L, ABG HCO3 24.8, ABG Total CO2 25.9, ABG O2 Saturation 56 L*, ABG Base Excess 1.2, Miguelito Test N/a 11/29/17 17:00: WBC 29.7 H*, RBC 4.03 L, Hgb 11.3 L, Hct 35.9 L, MCV 89.1, MCH 28.2, MCHC 31.6 L, RDW 15.9, Plt Count 880 H, MPV 6.8 L, Neut % (Auto) 89.2 H, Lymph % (Auto) 6.6 L, [place] % (Auto) 2.7, Eos % (Auto) 1.0, Baso % (Auto) 0.5, Neut # (Auto) 26.5 H, Lymph # (Auto) 2.0, [place] # (Auto) 0.8, Eos # (Auto) 0.3, Baso # (Auto) 0.2, Total Counted 100, Neutrophils % (Manual) 81 H, Band Neutrophils % 2.0, Lymphocytes % (Manual) 11, Monocytes % (Manual) 4, Eosinophils % (Manual) 2, Platelet Estimate Marked increase, RBC Morphology Normal 11/29/17 17:00: Sodium 135 L, Potassium 4.0, Chloride 99, Carbon Dioxide 27, Anion Gap 13.0, BUN 10, Creatinine 1.29, Estimated Creat Clear 28, Estimated GFR 56 L, Est GFR ( Amer) 68, Glucose 136 H, Calcium 8.9, Total Bilirubin 0.4, AST 23, ALT 17, Alkaline Phosphatase 103, Total Protein 7.0, Albumin 2.4 L, Globulin 4.6 H, Albumin/Globulin Ratio 0.5 L, Plasma/Serum Alcohol < 3 11/29/17 17:00: Lactate 2.8 H 11/29/17 17:00: Ammonia 21 11/29/17 17:53: Urine Opiates Screen Negative, Urine Methadone Screen Negative, Ur Barbituates Screen Negative, Ur Phencyclidine Scrn Negative, Ur Amphetamines Screen Negative, U Benzodiazepines Scrn Negative, Urine Cocaine Screen Negative , U Marijuana (THC) Screen Negative 11/29/17 17:53: Urine Color Yellow, Urine Appearance Clear, Urine pH 6.0, Ur Specific [place] 1.025, Urine Protein Trace, Urine Glucose (UA) Negative, Urine Ketones Negative, Urine Blood Trace-l, Urine Nitrate Negative, Urine Bilirubin Negative, Urine Urobilinogen 0.2, Ur Leukocyte Esterase Negative, Urine RBC None , Urine WBC Occasional, Ur Squamous Epith Cells Occasional, Urine Bacteria 1+, Hyaline Casts 3-5, Coarse Granular Casts 3-5 11/29/17 21:12: Lactate 2.3 H 11/29/17 23:20: Lactate 1.8 11/30/17 05:05: WBC 16.8 H D, RBC 3.47 L, Hgb 9.8 L D, Hct 30.8 L, MCV 88.9, MCH 28.1, MCHC 31.6 L, RDW 15.9, Plt Count 762 H, MPV 7.3 L, Neut % (Auto) 81.1 H, Lymph % (Auto) 12.2, [place] % (Auto) 6.1, Eos % (Auto) 0.4, Baso % (Auto) 0.3, Neut # (Auto) 13.6 H, Lymph # (Auto) 2.1, [place] # (Auto) 1.0, Eos # (Auto) 0.1, Baso # (Auto) 0.1 11/30/17 05:05: Sodium 139, Potassium 3.6, Chloride 102, Carbon Dioxide 31, Anion Gap 9.6, BUN 8, Creatinine 1.07, Estimated Creat Clear 62, Estimated GFR 69, Est GFR ( Amer) 84 D, Glucose 105 D, Calcium 8.4 L, Magnesium 1.8 11/30/17 08:00: Specimen Source Right radial, O2 % 100%, ABG pH 7.49 H, ABG pCO2 36.2, ABG pO2 62.3 L, ABG HCO3 27.2 H, ABG Total CO2 28.3 H, ABG O2 Saturation 93, ABG Base Excess 3.9 H, Miguelito Test Acceptable Medical History: Reports:: Hypertension, Kidney Stones Denies:: Cancer, Diabetes Mellitus Type 1, Diabetes Mellitus Type 2, MRSA Assessment and Plan - Assessment and plan all Dx Assessment and Plan for all problems:: BASED ON PATIENT FACTORS, RECOMMEND VANCOMYCIN 1500 MG IV ONCE, FOLLOWED BY VANCOMYCIN 1250 MG IV Q18H. WILL OBTAIN VANCOMYCIN TROUGH LEVEL PRIOR TO 3RD DOSE. PHARMACY WILL FOLLOW DAILY AND ADJUST APPROPRIATE.
[2017-11-30 09:56] LABS: Lymphocytes % 16 % (10-50); Monocytes % 7 % (2-9); Neutrophils % 76 % (42-76); Total Cells Counted 100
[2017-11-30 09:57] LABS: RBC Morphology Normal
--- NOTE | 2017-11-30 11:32 | Consult Report ---
History of Present Illness Consult date: 11/30/17 Requesting physician: Liang Jones Consult reason: shortness of breath Chief complaint: Elevated troponin Additional Medical History:: 1. HTN 2. Tobacco use 3. SOA, 11/2017 A. Bilateral pneumonia on CXR 4. History of spinal fusion A. Previous service in the [facility] for 8 yrs History of present illness: 67-year-old white male with hypertension and tobacco use admitted for increasing shortness of breath. Chest x-ray revealed evidence of bilateral pneumonia. Lab work including cardiac enzymes were drawn with elevated troponin noted. Cardiology consulted for further evaluation. Patient denies any history of chest pain, pressure or tightness but does relate exertional shortness of breath recently. Patient relates being hospitalized at the [facility] on 2 separate occasions recently for GI problems with no specific etiology determined per patient. Patient denies any vomiting. He relates some diarrhea recently but is only had one bowel movement during this hospitalization. EKG shows sinus rhythm without acute ST segment changes. Echocardiogram has been performed interpretation pending at this time. Patient does relate some recent fevers without significant weight loss. [facility] History Medical History: Reports:: Hypertension, Kidney Stones Denies:: Cancer, Diabetes Mellitus Type 1, Diabetes Mellitus Type 2, MRSA Other Medical History: Reports: Arthritis Other Surgeries: Yes: Other Amputation: No Fractures: No - *Social History Educational Level: Completed High School Smoking Status: Current every day smoker Tobacco Type: cigarettes # Packs/Day (cigarettes): 1 #Yrs smoked (if former smoker): 40 Alcohol Intake: former Alcohol Intake Frequency:: a few times a month Substance Use Type: denies use Last Used Substance: unknown Occupational Status: disabled Housing: apartment Household Members: spouse - Psychiatric History Expresses thoughts of harming self/others: None Suicide Plan Description: No Plan *Family Hx:: Cancer Meds Home Medications Medication Instructions Recorded Confirmed Type Cyclobenzaprine HCl [Flexeril 10mg 10 mg PO BID 08/10/17 11/29/17 History tablet] Lisinopril [Lisinopril 30mg Tablet] 30 mg PO DAILY 08/10/17 11/29/17 History Gabapentin [Neurontin 800mg Tab] 800 mg PO TID 11/29/17 11/29/17 History Tramadol HCl [Ultram Take Home 50 mg PO Q8H 11/29/17 11/29/17 History Pack 50mg (10)] Allergies Allergy/AdvReac Type Severity Reaction Status Date / Time No Known Allergies Allergy Verified 11/26/17 16:48 Review of Systems - *Cardiovascular Reports shortness of breath with activity, Denies chest pain - *Respiratory Reports cough, Reports shortness of breath with activity - *Gastrointestinal Reports abdominal pain, Reports loose stools - *Genitourinary Denies difficulty urinating - *Musculoskeletal Reports back pain Exam Vital signs and Labs for Last 24 Hours: Temp Pulse Resp BP Pulse Ox 100.3 F H 95 H 22 140/72 91 L 11/30/17 08:00 11/30/17 09:09 11/30/17 08:00 11/30/17 08:00 11/30/17 09:09 Laboratory Results - last 24 hr 11/29/17 16:49: Specimen Source R. radial, O2 % Room air, ABG pH 7.47 H, ABG pCO2 34.6 L, ABG pO2 27.6 L, ABG HCO3 24.8, ABG Total CO2 25.9, ABG O2 Saturation 56 L*, ABG Base Excess 1.2, Miguelito Test N/a 11/29/17 17:00: WBC 29.7 H*, RBC 4.03 L, Hgb 11.3 L, Hct 35.9 L, MCV 89.1, MCH 28.2, MCHC 31.6 L, RDW 15.9, Plt Count 880 H, MPV 6.8 L, Neut % (Auto) 89.2 H, Lymph % (Auto) 6.6 L, [place] % (Auto) 2.7, Eos % (Auto) 1.0, Baso % (Auto) 0.5, Neut # (Auto) 26.5 H, Lymph # (Auto) 2.0, [place] # (Auto) 0.8, Eos # (Auto) 0.3, Baso # (Auto) 0.2, Total Counted 100, Neutrophils % (Manual) 81 H, Band Neutrophils % 2.0, Lymphocytes % (Manual) 11, Monocytes % (Manual) 4, Eosinophils % (Manual) 2, Platelet Estimate Marked increase, RBC Morphology Normal 11/29/17 17:00: Sodium 135 L, Potassium 4.0, Chloride 99, Carbon Dioxide 27, Anion Gap 13.0, BUN 10, Creatinine 1.29, Estimated Creat Clear 28, Estimated GFR 56 L, Est GFR ( Amer) 68, Glucose 136 H, Calcium 8.9, Total Bilirubin 0.4, AST 23, ALT 17, Alkaline Phosphatase 103, Total Protein 7.0, Albumin 2.4 L, Globulin 4.6 H, Albumin/Globulin Ratio 0.5 L, Plasma/Serum Alcohol < 3 11/29/17 17:00: Lactate 2.8 H 11/29/17 17:00: Ammonia 21 11/29/17 17:53: Urine Opiates Screen Negative, Urine Methadone Screen Negative, Ur Barbituates Screen Negative, Ur Phencyclidine Scrn Negative, Ur Amphetamines Screen Negative, U Benzodiazepines Scrn Negative, Urine Cocaine Screen Negative , U Marijuana (THC) Screen Negative 11/29/17 17:53: Urine Color Yellow, Urine Appearance Clear, Urine pH 6.0, Ur Specific [place] 1.025, Urine Protein Trace, Urine Glucose (UA) Negative, Urine Ketones Negative, Urine Blood Trace-l, Urine Nitrate Negative, Urine Bilirubin Negative, Urine Urobilinogen 0.2, Ur Leukocyte Esterase Negative, Urine RBC None , Urine WBC Occasional, Ur Squamous Epith Cells Occasional, Urine Bacteria 1+, Hyaline Casts 3-5, Coarse Granular Casts 3-5 11/29/17 21:12: Lactate 2.3 H 11/29/17 23:20: Lactate 1.8 11/30/17 05:05: WBC 16.8 H D, RBC 3.47 L, Hgb 9.8 L D, Hct 30.8 L, MCV 88.9, MCH 28.1, MCHC 31.6 L, RDW 15.9, Plt Count 762 H, MPV 7.3 L, Neut % (Auto) 81.1 H, Lymph % (Auto) 12.2, [place] % (Auto) 6.1, Eos % (Auto) 0.4, Baso % (Auto) 0.3, Neut # (Auto) 13.6 H, Lymph # (Auto) 2.1, [place] # (Auto) 1.0, Eos # (Auto) 0.1, Baso # (Auto) 0.1, Total Counted 100, Neutrophils % (Manual) 76, Lymphocytes % ( Manual) 16, Atypical Lymphs % 1.0, Monocytes % (Manual) 7, Platelet Estimate Marked increase, RBC Morphology Normal 11/30/17 05:05: Sodium 139, Potassium 3.6, Chloride 102, Carbon Dioxide 31, Anion Gap 9.6, BUN 8, Creatinine 1.07, Estimated Creat Clear 62, Estimated GFR 69, Est GFR ( Amer) 84 D, Glucose 105 D, Calcium 8.4 L, Magnesium 1.8 11/30/17 08:00: Specimen Source Right radial, O2 % 100%, ABG pH 7.49 H, ABG pCO2 36.2, ABG pO2 62.3 L, ABG HCO3 27.2 H, ABG Total CO2 28.3 H, ABG O2 Saturation 93, ABG Base Excess 3.9 H, Miguelito Test Acceptable 11/30/17 08:35: Troponin I 0.22 H I & O for Last 24 hours: Intake & Output 11/27/17 11/28/17 11/29/17 11/30/17 11:59 11:59 11:59 11:59 Intake Total 720 / 720 Output Total 1250 / 1250 Balance -530 / -530 Weight 141 lb 1 oz Microbiology Reports for the Last 24 Hours: Microbiology 11/29/17 22:20 Sputum - Expectorated Sputum Gram Stain - Final 11/29/17 22:20 Sputum - Expectorated Sputum Sputum Culture - Preliminary - *Routine Neck Exam Present: carotid bruit. Absent: JVD - *Routine Respiratory Exam Present: decreased breath sounds, rhonchi, crackles - *Routine Cardiovascular Exam Present: RRR, murmur - *Routine Abdominal Exam Present: soft. Absent: tenderness - *Routine Extremities Exam Absent: edema - *Routine Neurological Exam Present: alert, oriented X3, moving all extremities Assessment and Plan (1) Elevated troponin Current visit: Yes Status: Acute Category: Medical Code(s): R74.8 - Abnormal levels of other serum enzymes (2) Bilateral pneumonia Current visit: Yes Status: Acute Category: Medical Code(s): J18.9 - Pneumonia, unspecified organism (3) SOB (shortness of breath) Current visit: Yes Status: Acute Category: Medical Code(s): R06.02 - Shortness of breath (4) Altered mental status Current visit: Yes Status: Acute Category: Medical Code(s): R41.82 - Altered mental status, unspecified (5) Chronic back pain Current visit: Yes Status: Acute Category: Medical Code(s): M54.9 - Dorsalgia, unspecified; G89.29 - Other chronic pain - Assessment and plan all Dx Assessment and Plan for all problems:: 1. Echocardiogram reviewed with normal ejection fraction and no wall motion abnormality. No evidence of vegetation on the valves. 2. Suspect elevated troponin secondary to strain from bilateral pneumonia. Recommend continuing to treat pulmonary issues. 3. No further cardiac workup at this time.
[2017-11-30 12:33] LABS: ABG Base Excess 1.1 mmol/L (-2.4-2.3); ABG HCO3 24.6 mmhg (22.0-26.0); ABG Oxygen Saturation 88 % (90-100); ABG PCO2 33.5 mmhg (35.0-45.0); ABG PH 7.48 mmol/L (7.35-7.45); ABG PO2 52.9 mmhg (80-100); ABG TCO2 25.6 mmhg (23-27)
[2017-11-30 12:34] LABS: Allen's Test ACCEPTABLE; Oxygen 50% VENTI %
[2017-11-30 12:45] LABS: Basophils % 0.2 % (0.1-2.0); Eosinophils % 0.2 % (0.1-12.0); Hematocrit 30.3 % (42.0-52.0); Hemoglobin 9.7 g/dL (14.1-18.0); Lymphocytes # 1.2 K/mm3 (0.7-4.5); Mean Corpuscular Hemoglobin 28.3 pg (27.0-31.2); Mean Corpuscular Volume 88.4 fl (80-94); Mean Platelet Volume 6.8 fl (7.4-10.4); Monocytes # 0.7 K/mm3 (0.1-1.0); Monocytes % 4.3 % (1.7-9.3); Neutrophils # 15.2 K/mm3 (1.8-7.8); Neutrophils % 88.4 % (37.0-80.0); Platelet Count 777 K/mm3 (142-424); Red Blood Count 3.43 M/mm3 (4.60-6.20); Red Cell Distribution Width 16.3 % (11.5-17.5); White Blood Count 17.2 K/mm3 (4.8-10.8)
--- NOTE | 2017-11-30 12:57 | Cardiology Report ---
PROCEDURE: 2-D M-mode and color Doppler study INDICATIONS FOR THE TEST: Chest pain X COPDX Heart Murmur Tobacco SmokingX Palpitations Fatigue Syncope Edema HypertensionXDiabetes Mellitus Rheumatic Fever SOBXDOEXObesity Hyperlipidemia Family History HD Additional History LIMITED EXAM SUPINE POSITION PATIENT INFORMATION HEIGHT: 69 WEIGHT:141 GENDER: Male B/P:160/80 2-D/M-MODE INTERPRETATION: 2-D MEASUREMENTS OBSERVED VALUES IN CMS Right Ventricular Dimension (RVDd) 1.6 Interventricular Septum (Thickness)(IVsd) .7 Left Ventricular Internal Dimensions(LVIDd) 5.2 Left Ventricular Posterior Wall (Thickness)(LVPWd) .8 Aortic Root 2.6 Aortic Cusp Separation 1.8 Left Atrial Dimensions (LAD) 3.5 2D 1. Left atrium is normal size, left ventricle is normal size, there is no concentric left ventricular hypertrophy, visually estimated ejection fraction 55%, there is no obvious regional wall motion abnormality, there is abnormal septal motion. 2. The right atrium and right ventricle are qualitatively appears to be normal size and contractility. 3. The aortic valve is thickened and fibrosed. 4. The mitral and tricuspid valve are grossly normal. 5. The pulmonic valve is poorly visualized. 6. No significant pericardial effusion noted. DOPPLER INTERROGATION: Doppler interrogation of the aortic, mitral and tricuspid valve reveals presence of mild mitral and tricuspid regurgitation, tricuspid regurgitation jet velocity insufficient for calculation of the right ventricular systolic pressure, diastolic parameters are inconclusive. CONCLUSION: 1. Normal left ventricular size, preserved left ventricular systolic function, visually estimated ejection fraction 55% with no obvious regional wall motion abnormality, there is abnormal septal motion, diastolic parameters are inconclusive. 2. Mild mitral and tricuspid regurgitation 3. No significant pericardial effusion noted.
[2017-11-30 13:03] LABS: Anion Gap 10.8 mEq/L (5-15); Calcium 8.1 mg/dL (8.5-10.1); Potassium 3.8 mmoL/L (3.5-5.1)
--- NOTE | 2017-11-30 13:42 | H&P/Discharge Summary ---
General - General Admission date:: 11/29/17 Discharge date: 11/30/17 *Admission Date: 11/29/17 *Chief complaint: sob *History of present illness: this ot with hx of copd presents to the ed with intermittant chest pain and progressive sob - he was seen in the ed - years old white male with history of cervical DJD, chronic LBP, COPD and renal failure on no dialysis who was recently discharged from [facility] 2 weeks ago. The reports that the patient has been experiencing back pain and using his Neurontin until he was [place] confused this morning. He did have an episode of intermittent chest pain yesterday. In the ED he denies chest pain shortness of breath nausea vomiting or diarrhea. pt was admitted on abx and steroids with resp treatments - [facility] History I have reviewed the patient's past medical history: Yes Medical History: Reports:: Hypertension, Kidney Stones Denies:: Cancer, Diabetes Mellitus Type 1, Diabetes Mellitus Type 2, MRSA Other Medical History: Reports: Arthritis Other Surgeries: Yes: Other Amputation: No Fractures: No - *Social History Educational Level: Completed High School Smoking Status: Current every day smoker Tobacco Type: cigarettes # Packs/Day (cigarettes): 1 #Yrs smoked (if former smoker): 40 Alcohol Intake: former Alcohol Intake Frequency:: a few times a month Substance Use Type: denies use Last Used Substance: unknown Occupational Status: disabled Housing: apartment Household Members: spouse - Psychiatric History Expresses thoughts of harming self/others: None Suicide Plan Description: No Plan *Family Hx:: Cancer Review of Systems - Review of Systems Review of systems:: pertinent systems reviewed and negative unless documented below - Constitutional Reports weakness, Denies fever(s) - Eyes Denies change in vision - ENT Denies sore throat, Denies tongue swelling - *Cardiovascular Reports chest pain, Reports shortness of breath - *Respiratory Reports cough, Reports shortness of breath, Denies coughing up blood, Denies pain on inspiration - *Gastrointestinal Denies abdominal pain - *Genitourinary Denies blood in urine - *Musculoskeletal Denies joint pain, Denies joint swelling - Integumentary/Breasts Denies rash - *Neurologic Denies seizure-like activity - Psychiatric Reports anxiety Exam Vital signs and Labs for Last 24 Hours: Temp Pulse Resp BP Pulse Ox 99.0 F 94 H 24 140/72 88 L 11/30/17 11:32 11/30/17 11:32 11/30/17 11:32 11/30/17 11:46 11/30/17 11:32 Laboratory Results - last 24 hr 11/29/17 16:49: Specimen Source R. radial, O2 % Room air, ABG pH 7.47 H, ABG pCO2 34.6 L, ABG pO2 27.6 L, ABG HCO3 24.8, ABG Total CO2 25.9, ABG O2 Saturation 56 L*, ABG Base Excess 1.2, Miguelito Test N/a 11/29/17 17:00: WBC 29.7 H*, RBC 4.03 L, Hgb 11.3 L, Hct 35.9 L, MCV 89.1, MCH 28.2, MCHC 31.6 L, RDW 15.9, Plt Count 880 H, MPV 6.8 L, Neut % (Auto) 89.2 H, Lymph % (Auto) 6.6 L, [place] % (Auto) 2.7, Eos % (Auto) 1.0, Baso % (Auto) 0.5, Neut # (Auto) 26.5 H, Lymph # (Auto) 2.0, [place] # (Auto) 0.8, Eos # (Auto) 0.3, Baso # (Auto) 0.2, Total Counted 100, Neutrophils % (Manual) 81 H, Band Neutrophils % 2.0, Lymphocytes % (Manual) 11, Monocytes % (Manual) 4, Eosinophils % (Manual) 2, Platelet Estimate Marked increase, RBC Morphology Normal 11/29/17 17:00: Sodium 135 L, Potassium 4.0, Chloride 99, Carbon Dioxide 27, Anion Gap 13.0, BUN 10, Creatinine 1.29, Estimated Creat Clear 28, Estimated GFR 56 L, Est GFR ( Amer) 68, Glucose 136 H, Calcium 8.9, Total Bilirubin 0.4, AST 23, ALT 17, Alkaline Phosphatase 103, Total Protein 7.0, Albumin 2.4 L, Globulin 4.6 H, Albumin/Globulin Ratio 0.5 L, Plasma/Serum Alcohol < 3 11/29/17 17:00: Lactate 2.8 H 11/29/17 17:00: Ammonia 21 11/29/17 17:53: Urine Opiates Screen Negative, Urine Methadone Screen Negative, Ur Barbituates Screen Negative, Ur Phencyclidine Scrn Negative, Ur Amphetamines Screen Negative, U Benzodiazepines Scrn Negative, Urine Cocaine Screen Negative , U Marijuana (THC) Screen Negative 11/29/17 17:53: Urine Color Yellow, Urine Appearance Clear, Urine pH 6.0, Ur Specific [place] 1.025, Urine Protein Trace, Urine Glucose (UA) Negative, Urine Ketones Negative, Urine Blood Trace-l, Urine Nitrate Negative, Urine Bilirubin Negative, Urine Urobilinogen 0.2, Ur Leukocyte Esterase Negative, Urine RBC None , Urine WBC Occasional, Ur Squamous Epith Cells Occasional, Urine Bacteria 1+, Hyaline Casts 3-5, Coarse Granular Casts 3-5 11/29/17 21:12: Lactate 2.3 H 11/29/17 23:20: Lactate 1.8 11/30/17 05:05: WBC 16.8 H D, RBC 3.47 L, Hgb 9.8 L D, Hct 30.8 L, MCV 88.9, MCH 28.1, MCHC 31.6 L, RDW 15.9, Plt Count 762 H, MPV 7.3 L, Neut % (Auto) 81.1 H, Lymph % (Auto) 12.2, [place] % (Auto) 6.1, Eos % (Auto) 0.4, Baso % (Auto) 0.3, Neut # (Auto) 13.6 H, Lymph # (Auto) 2.1, [place] # (Auto) 1.0, Eos # (Auto) 0.1, Baso # (Auto) 0.1, Total Counted 100, Neutrophils % (Manual) 76, Lymphocytes % ( Manual) 16, Atypical Lymphs % 1.0, Monocytes % (Manual) 7, Platelet Estimate Marked increase, RBC Morphology Normal 11/30/17 05:05: Sodium 139, Potassium 3.6, Chloride 102, Carbon Dioxide 31, Anion Gap 9.6, BUN 8, Creatinine 1.07, Estimated Creat Clear 62, Estimated GFR 69, Est GFR ( Amer) 84 D, Glucose 105 D, Calcium 8.4 L, Magnesium 1.8 11/30/17 08:00: Specimen Source Right radial, O2 % 100%, ABG pH 7.49 H, ABG pCO2 36.2, ABG pO2 62.3 L, ABG HCO3 27.2 H, ABG Total CO2 28.3 H, ABG O2 Saturation 93, ABG Base Excess 3.9 H, Miguelito Test Acceptable 11/30/17 08:35: Troponin I 0.22 H 11/30/17 12:15: Specimen Source R radial, O2 % 50% venti, ABG pH 7.48 H, ABG pCO2 33.5 L, ABG pO2 52.9 L, ABG HCO3 24.6, ABG Total CO2 25.6, ABG O2 Saturation 88 L, ABG Base Excess 1.1, Miguelito Test Acceptable 11/30/17 12:40: WBC 17.2 H, RBC 3.43 L, Hgb 9.7 L, Hct 30.3 L, MCV 88.4, MCH 28.3, MCHC 32.0, RDW 16.3, Plt Count 777 H, MPV 6.8 L, Neut % (Auto) 88.4 H, Lymph % (Auto) 7.0 L, [place] % (Auto) 4.3, Eos % (Auto) 0.2, Baso % (Auto) 0.2, Neut # (Auto) 15.2 H, Lymph # (Auto) 1.2, [place] # (Auto) 0.7, Eos # (Auto) 0.0, Baso # (Auto) 0.0 11/30/17 12:40: Sodium 138, Potassium 3.8, Chloride 102, Carbon Dioxide 29, Anion Gap 10.8, BUN 7, Creatinine 1.20, Estimated Creat Clear 56, Estimated GFR 61, Est GFR ( Amer) 74, Glucose 174 H D, Calcium 8.1 L, Troponin I 0.20 H I & O for Last 24 hours: Intake & Output 11/28/17 11/29/17 11/30/17 12/01/17 11:59 11:59 11:59 11:59 Intake Total 720 / 720 Output Total 1250 / 1250 Balance -530 / -530 Weight 141 lb 1.004 oz Microbiology Reports for the Last 24 Hours: Microbiology 11/29/17 22:20 Sputum - Expectorated Sputum Gram Stain - Final 11/29/17 22:20 Sputum - Expectorated Sputum Sputum Culture - Preliminary - Constitutional no acute distress - *Routine HEENT Exam Head: Present: normocephalic, atraumatic Eye: Present: EOMI, PERRL ENT: Present: mucous membranes dry - *Routine Neck Exam Present: supple. Absent: JVD - *Routine Respiratory Exam Present: prolonged expiratory phase, rhonchi, wheezes, distant breath sounds - *Routine Cardiovascular Exam Present: RRR, murmur, S4 - *Routine Abdominal Exam Present: soft - *Routine Extremities Exam Absent: calf tenderness - *Routine Skin Exam Present: intact - *Routine Neurological Exam Present: alert, oriented X3, CN II-XII intact - Routine Psychiatric Exam Present: unable to assess Hospital Course Hospital Course: pt admitted and continued to have resp sx and had desat with home o2 - he has abn cxr but stable at this time and abg showing slight improvement despite resp treatment/abx and steroids - his trop was elevated but seen by card with stable ekg and echo -TN 2. Tobacco use 3. SOA, 11/2017 A. Bilateral pneumonia on CXR 4. History of spinal fusion A. Previous service in the [facility] for 8 yrs History of present illness: 67-year-old white male with hypertension and tobacco use admitted for increasing shortness of breath. Chest x-ray revealed evidence of bilateral pneumonia. Lab work including cardiac enzymes were drawn with elevated troponin noted. Cardiology consulted for further evaluation. Patient denies any history of chest pain, pressure or tightness but does relate exertional shortness of breath recently. Patient relates being hospitalized at the [facility] on 2 separate occasions recently for GI problems with no specific etiology determined per patient. Patient denies any vomiting. He relates some diarrhea recently but is only had one bowel movement during this hospitalization. EKG shows sinus rhythm without acute ST segment changes. Echocardiogram has been performed interpretation pending at this time. Patient does relate some recent fevers without significant weight loss. chocardiogram reviewed with normal ejection fraction and no wall motion abnormality. No evidence of vegetation on the valves. 2. Suspect elevated troponin secondary to strain from bilateral pneumonia. Recommend continuing to treat pulmonary issues. 3. No further cardiac workup at this time. pt has continued to have sig resp distress and discussed with as pt needs more care than [facility] can provide as he needs pulmonary med-will need intubation prior to d/c and discussed with dr krueger - Results Labs on day of discharge: Labs from last 24 hours 11/30/17 11/30/17 11/30/17 12:40 12:40 12:15 WBC 17.2 H RBC 3.43 L Hgb 9.7 L Hct 30.3 L MCV 88.4 MCH 28.3 MCHC 32.0 RDW 16.3 Plt Count 777 H MPV 6.8 L Neut % (Auto) 88.4 H Lymph % (Auto) 7.0 L [place] % (Auto) 4.3 Eos % (Auto) 0.2 Baso % (Auto) 0.2 Neut # (Auto) 15.2 H Lymph # (Auto) 1.2 [place] # (Auto) 0.7 Eos # (Auto) 0.0 Baso # (Auto) 0.0 Total Counted Neutrophils % (Manual) Band Neutrophils % Lymphocytes % (Manual) Atypical Lymphs % Monocytes % (Manual) Eosinophils % (Manual) Platelet Estimate RBC Morphology Specimen Source R radial O2 % 50% venti ABG pH 7.48 H ABG pCO2 33.5 L ABG pO2 52.9 L ABG HCO3 24.6 ABG Total CO2 25.6 ABG O2 Saturation 88 L ABG Base Excess 1.1 Miguelito Test Acceptable Sodium 138 Potassium 3.8 Chloride 102 Carbon Dioxide 29 Anion Gap 10.8 BUN 7 Creatinine 1.20 Estimated Creat Clear 56 Estimated GFR 61 Est GFR ( Amer) 74 Glucose 174 H D Lactate Calcium 8.1 L Magnesium Total Bilirubin AST ALT Alkaline Phosphatase Ammonia Troponin I 0.20 H Total Protein Albumin Globulin Albumin/Globulin Ratio Urine Color Urine Appearance Urine pH Ur Specific [place] Urine Protein Urine Glucose (UA) Urine Ketones Urine Blood Urine Nitrate Urine Bilirubin Urine Urobilinogen Ur Leukocyte Esterase Urine RBC Urine WBC Ur Squamous Epith Cells Urine Bacteria Hyaline Casts Coarse Granular Casts Urine Opiates Screen Urine Methadone Screen Ur Barbituates Screen Ur Phencyclidine Scrn Ur Amphetamines Screen U Benzodiazepines Scrn Urine Cocaine Screen U Marijuana (THC) Screen Plasma/Serum Alcohol 11/30/17 11/30/17 11/30/17 08:35 08:00 05:05 WBC RBC Hgb Hct MCV MCH MCHC RDW Plt Count MPV Neut % (Auto) Lymph % (Auto) [place] % (Auto) Eos % (Auto) Baso % (Auto) Neut # (Auto) Lymph # (Auto) [place] # (Auto) Eos # (Auto) Baso # (Auto) Total Counted Neutrophils % (Manual) Band Neutrophils % Lymphocytes % (Manual) Atypical Lymphs % Monocytes % (Manual) Eosinophils % (Manual) Platelet Estimate RBC Morphology Specimen Source Right radial O2 % 100% ABG pH 7.49 H ABG pCO2 36.2 ABG pO2 62.3 L ABG HCO3 27.2 H ABG Total CO2 28.3 H ABG O2 Saturation 93 ABG Base Excess 3.9 H Miguelito Test Acceptable Sodium 139 Potassium 3.6 Chloride 102 Carbon Dioxide 31 Anion Gap 9.6 BUN 8 Creatinine 1.07 Estimated Creat Clear 62 Estimated GFR 69 Est GFR ( Amer) 84 D Glucose 105 D Lactate Calcium 8.4 L Magnesium 1.8 Total Bilirubin AST ALT Alkaline Phosphatase Ammonia Troponin I 0.22 H Total Protein Albumin Globulin Albumin/Globulin Ratio Urine Color Urine Appearance Urine pH Ur Specific [place] Urine Protein Urine Glucose (UA) Urine Ketones Urine Blood Urine Nitrate Urine Bilirubin Urine Urobilinogen Ur Leukocyte Esterase Urine RBC Urine WBC Ur Squamous Epith Cells Urine Bacteria Hyaline Casts Coarse Granular Casts Urine Opiates Screen Urine Methadone Screen Ur Barbituates Screen Ur Phencyclidine Scrn Ur Amphetamines Screen U Benzodiazepines Scrn Urine Cocaine Screen U Marijuana (THC) Screen Plasma/Serum Alcohol 11/30/17 11/29/17 11/29/17 05:05 23:20 21:12 WBC 16.8 H D RBC 3.47 L Hgb 9.8 L D Hct 30.8 L MCV 88.9 MCH 28.1 MCHC 31.6 L RDW 15.9 Plt Count 762 H MPV 7.3 L Neut % (Auto) 81.1 H Lymph % (Auto) 12.2 [place] % (Auto) 6.1 Eos % (Auto) 0.4 Baso % (Auto) 0.3 Neut # (Auto) 13.6 H Lymph # (Auto) 2.1 [place] # (Auto) 1.0 Eos # (Auto) 0.1 Baso # (Auto) 0.1 Total Counted 100 Neutrophils % (Manual) 76 Band Neutrophils % Lymphocytes % (Manual) 16 Atypical Lymphs % 1.0 Monocytes % (Manual) 7 Eosinophils % (Manual) Platelet Estimate Marked increase RBC Morphology Normal Specimen Source O2 % ABG pH ABG pCO2 ABG pO2 ABG HCO3 ABG Total CO2 ABG O2 Saturation ABG Base Excess Miguelito Test Sodium Potassium Chloride Carbon Dioxide Anion Gap BUN Creatinine Estimated Creat Clear Estimated GFR Est GFR ( Amer) Glucose Lactate 1.8 2.3 H Calcium Magnesium Total Bilirubin AST ALT Alkaline Phosphatase Ammonia Troponin I Total Protein Albumin Globulin Albumin/Globulin Ratio Urine Color Urine Appearance Urine pH Ur Specific [place] Urine Protein Urine Glucose (UA) Urine Ketones Urine Blood Urine Nitrate Urine Bilirubin Urine Urobilinogen Ur Leukocyte Esterase Urine RBC Urine WBC Ur Squamous Epith Cells Urine Bacteria Hyaline Casts Coarse Granular Casts Urine Opiates Screen Urine Methadone Screen Ur Barbituates Screen Ur Phencyclidine Scrn Ur Amphetamines Screen U Benzodiazepines Scrn Urine Cocaine Screen U Marijuana (THC) Screen Plasma/Serum Alcohol 11/29/17 11/29/17 11/29/17 17:53 17:53 17:00 WBC RBC Hgb Hct MCV MCH MCHC RDW Plt Count MPV Neut % (Auto) Lymph % (Auto) [place] % (Auto) Eos % (Auto) Baso % (Auto) Neut # (Auto) Lymph # (Auto) [place] # (Auto) Eos # (Auto) Baso # (Auto) Total Counted Neutrophils % (Manual) Band Neutrophils % Lymphocytes % (Manual) Atypical Lymphs % Monocytes % (Manual) Eosinophils % (Manual) Platelet Estimate RBC Morphology Specimen Source O2 % ABG pH ABG pCO2 ABG pO2 ABG HCO3 ABG Total CO2 ABG O2 Saturation ABG Base Excess Miguelito Test Sodium Potassium Chloride Carbon Dioxide Anion Gap BUN Creatinine Estimated Creat Clear Estimated GFR Est GFR ( Amer) Glucose Lactate Calcium Magnesium Total Bilirubin AST ALT Alkaline Phosphatase Ammonia 21 Troponin I Total Protein Albumin Globulin Albumin/Globulin Ratio Urine Color Yellow Urine Appearance Clear Urine pH 6.0 Ur Specific [place] 1.025 Urine Protein Trace Urine Glucose (UA) Negative Urine Ketones Negative Urine Blood Trace-l Urine Nitrate Negative Urine Bilirubin Negative Urine Urobilinogen 0.2 Ur Leukocyte Esterase Negative Urine RBC None Urine WBC Occasional Ur Squamous Epith Cells Occasional Urine Bacteria 1+ Hyaline Casts 3-5 Coarse Granular Casts 3-5 Urine Opiates Screen Negative Urine Methadone Screen Negative Ur Barbituates Screen Negative Ur Phencyclidine Scrn Negative Ur Amphetamines Screen Negative U Benzodiazepines Scrn Negative Urine Cocaine Screen Negative U Marijuana (THC) Screen Negative Plasma/Serum Alcohol 11/29/17 11/29/17 11/29/17 17:00 17:00 17:00 WBC 29.7 H* RBC 4.03 L Hgb 11.3 L Hct 35.9 L MCV 89.1 MCH 28.2 MCHC 31.6 L RDW 15.9 Plt Count 880 H MPV 6.8 L Neut % (Auto) 89.2 H Lymph % (Auto) 6.6 L [place] % (Auto) 2.7 Eos % (Auto) 1.0 Baso % (Auto) 0.5 Neut # (Auto) 26.5 H Lymph # (Auto) 2.0 [place] # (Auto) 0.8 Eos # (Auto) 0.3 Baso # (Auto) 0.2 Total Counted 100 Neutrophils % (Manual) 81 H Band Neutrophils % 2.0 Lymphocytes % (Manual) 11 Atypical Lymphs % Monocytes % (Manual) 4 Eosinophils % (Manual) 2 Platelet Estimate Marked increase RBC Morphology Normal Specimen Source O2 % ABG pH ABG pCO2 ABG pO2 ABG HCO3 ABG Total CO2 ABG O2 Saturation ABG Base Excess Miguelito Test Sodium 135 L Potassium 4.0 Chloride 99 Carbon Dioxide 27 Anion Gap 13.0 BUN 10 Creatinine 1.29 Estimated Creat Clear 28 Estimated GFR 56 L Est GFR ( Amer) 68 Glucose 136 H Lactate 2.8 H Calcium 8.9 Magnesium Total Bilirubin 0.4 AST 23 ALT 17 Alkaline Phosphatase 103 Ammonia Troponin I Total Protein 7.0 Albumin 2.4 L Globulin 4.6 H Albumin/Globulin Ratio 0.5 L Urine Color Urine Appearance Urine pH Ur Specific [place] Urine Protein Urine Glucose (UA) Urine Ketones Urine Blood Urine Nitrate Urine Bilirubin Urine Urobilinogen Ur Leukocyte Esterase Urine RBC Urine WBC Ur Squamous Epith Cells Urine Bacteria Hyaline Casts Coarse Granular Casts Urine Opiates Screen Urine Methadone Screen Ur Barbituates Screen Ur Phencyclidine Scrn Ur Amphetamines Screen U Benzodiazepines Scrn Urine Cocaine Screen U Marijuana (THC) Screen Plasma/Serum Alcohol < 3 11/29/17 16:49 WBC RBC Hgb Hct MCV MCH MCHC RDW Plt Count MPV Neut % (Auto) Lymph % (Auto) [place] % (Auto) Eos % (Auto) Baso % (Auto) Neut # (Auto) Lymph # (Auto) [place] # (Auto) Eos # (Auto) Baso # (Auto) Total Counted Neutrophils % (Manual) Band Neutrophils % Lymphocytes % (Manual) Atypical Lymphs % Monocytes % (Manual) Eosinophils % (Manual) Platelet Estimate RBC Morphology Specimen Source R. radial O2 % Room air ABG pH 7.47 H ABG pCO2 34.6 L ABG pO2 27.6 L ABG HCO3 24.8 ABG Total CO2 25.9 ABG O2 Saturation 56 L* ABG Base Excess 1.2 Miguelito Test N/a Sodium Potassium Chloride Carbon Dioxide Anion Gap BUN Creatinine Estimated Creat Clear Estimated GFR Est GFR ( Amer) Glucose Lactate Calcium Magnesium Total Bilirubin AST ALT Alkaline Phosphatase Ammonia Troponin I Total Protein Albumin Globulin Albumin/Globulin Ratio Urine Color Urine Appearance Urine pH Ur Specific [place] Urine Protein Urine Glucose (UA) Urine Ketones Urine Blood Urine Nitrate Urine Bilirubin Urine Urobilinogen Ur Leukocyte Esterase Urine RBC Urine WBC Ur Squamous Epith Cells Urine Bacteria Hyaline Casts Coarse Granular Casts Urine Opiates Screen Urine Methadone Screen Ur Barbituates Screen Ur Phencyclidine Scrn Ur Amphetamines Screen U Benzodiazepines Scrn Urine Cocaine Screen U Marijuana (THC) Screen Plasma/Serum Alcohol Preliminary micro results at discharge 11/29/17 22:20 Sputum Culture - Preliminary Sputum - Expectorated Sputum DS: Diagnosis - Discharge Diagnosis (1) Elevated troponin Status: Acute (2) Bilateral pneumonia Status: Acute (3) SOB (shortness of breath) Status: Acute (4) Altered mental status Status: Acute (5) Chronic back pain Status: Acute (6) Respiratory failure Status: Acute Discharge Medications - Medications for Discharge Home Medication List at Discharge: No Action Lisinopril [Lisinopril 30mg Tablet] 30 mg PO DAILY Gabapentin [Neurontin 800mg Tab] 800 mg PO TID Cyclobenzaprine HCl [Flexeril 10mg tablet] 10 mg PO BID Dicyclomine HCl [Bentyl 10mg capsule] 20 mg PO TIDP PRN #30 cap PRN Reason: cramping abdominal pain Tramadol HCl [Ultram Take Home Pack 50mg (10)] 50 mg PO Q8H Disposition Disposition: Xfer Short-Term Hosp
== END 2017-11-30 14:55 | disposition short-term general hospital (02) ==
LOC: ER 16:17 → 2ND 16:17 → OBSVTOIN 19:40 → 2ND 19:41
PROVIDERS: ADMIT Family Medicine; ATTEND Emergency Medicine
CPT/HCPCS: 36415; 70450; 71010; 71045; 80048; 80053; 80305; 81001; 82140; 82803; 83605; 83735; 84484; 85007; 85025; 87040; 87070; 87077; 87205; 93005; 93306; 94002; 94640; 96365; 96367; 99285; J1956; J3370

== ENCOUNTER → 2018-01-28 12:51 | Outpatient (CLI) | payer MEDICARE, MEDICAID, SELFPAY | PROVIDERS: PCP Emergency Medicine | DX: R76.11 Nonspecific reaction to tuberculin skin test without active tuberculosis (principal) ==

== ENCOUNTER → 2018-01-29 13:41 | Outpatient (CLI) | payer MEDICARE, MEDICAID, SELFPAY | PROVIDERS: PCP Emergency Medicine; Visit Provider Internal Medicine | DX: K50.112 Crohn's disease of large intestine with intestinal obstruction (principal) | CPT/HCPCS: 36415; 86480 ==

== ENCOUNTER → 2018-02-18 12:58 | Outpatient (POV) | payer MEDICARE, MEDICAID, SELFPAY | PROVIDERS: Visit Provider Nurse Practitioner Acute Care | DX: Z00.00 Encounter for general adult medical examination without abnormal findings (principal) ==

== ENCOUNTER 2018-03-21 23:50 | Inpatient (IN) ==
[2018-03-22 00:38] LABS: Basophils % 0.2 % (0.1-2.0); Eosinophils % 0.2 % (0.1-12.0); Hematocrit 43.7 % (42.0-52.0); Hemoglobin 14.1 g/dL (14.1-18.0); Lymphocytes # 1.2 K/mm3 (0.7-4.5); Lymphocytes % 5.3 % (10-50); Mean Corpuscular HGB Conc 32.3 g/dL (31.8-35.4); Mean Corpuscular Hemoglobin 28.7 pg (27.0-31.2); Mean Corpuscular Volume 88.8 fl (80-94); Mean Platelet Volume 6.7 fl (7.4-10.4); Monocytes # 0.9 K/mm3 (0.1-1.0); Monocytes % 3.8 % (1.7-9.3); Neutrophils # 20.5 K/mm3 (1.8-7.8); Neutrophils % 90.5 % (37.0-80.0); Platelet Count 257 K/mm3 (142-424); Red Blood Count 4.91 M/mm3 (4.60-6.20); Red Cell Distribution Width 21.2 % (11.5-17.5); White Blood Count 22.6 K/mm3 (4.8-10.8)
[2018-03-22 00:58] LABS: Albumin Level 3.4 gm/dL (3.4-5.0); Albumin/Globulin Ratio 0.9 (1.1-1.8); Bilirubin,Total 0.6 mg/dL (0.2-1.0); Calcium 8.9 mg/dL (8.5-10.1); Globulin 3.9 gm/dl (1.3-3.2); Total Protein,Serum 7.3 gm/dL (6.4-8.2)
--- NOTE | 2018-03-22 01:26 | Emergency Department Note ---
ED Disposition Clinical Impression: Acute renal insufficiency, Amphetamine abuse Bilateral pneumonia Qualifiers: Pneumonia type: due to unspecified organism Lung location: unspecified part of lung Qualified Code(s): J18.9 - Pneumonia, unspecified organism Altered mental status Qualifiers: Altered mental status type: delirium Qualified Code(s): R41.0 - Disorientation, unspecified Rhabdomyolysis Qualifiers: Rhabdomyolysis type: non-traumatic Qualified Code(s): M62.82 - Rhabdomyolysis Disposition: Admitted As Inpatient Condition on Discharge: Serious Instructions: DI for Altered Mental Status Referrals: Provider,Referral, MD [Primary Care Provider] - - Critical Care Critical Care Time: Yes Attestation: On 03/21/18, the high probability of a clinically significant, sudden or life threatening deterioration of the following system(s) required my full and direct attention, intervention and personal management. The time I documented below is in addition to time spent performing reported procedures but includes the following listed in this critical care notation. Total Critical Care Time: 120 Vital system(s) involved:: Metabolic Failure, Shock (Septic) My critical care processes included: Assessment & monitoring of V/S, Data Review /Interpretation, Coordinating Care, Medication Orders and management, Documentation Medical Decision Making - Medical Records Medical records reviewed: Yes: I reviewed the patient's medical records. - Kevin Inquiry Pt receiving controlled substance: No Vital Signs: 03/21/18 23:50 03/22/18 01:16 03/22/18 02:29 Temperature 98.7 F 98.6 F 97.8 F Temperature Source Temporal Artery Scan Temporal Artery Scan Rectal Pulse Rate [Right Brachial] 78 87 85 Respiratory Rate 18 18 20 Blood Pressure [Right Arm] 120/77 157/87 H 167/89 H Blood Pressure Mean [Right Arm] 91 110 115 Blood Pressure Source [Right Arm] Automatic Cuff Automatic Cuff Automatic Cuff Blood Pressure Position [Right Arm] Supine Sitting Sitting 02 Sat by Pulse Oximetry 98 98 96 Oxygen Delivery Method Room Air Room Air Nasal Cannula Oxygen Flow Rate (LPM) 2 - Lab Data Lab results reviewed: Yes: I reviewed the patient's lab results. Lab Results 03/22/18 00:20: WBC 22.6 H*, RBC 4.91, Hgb 14.1, Hct 43.7, MCV 88.8, MCH 28.7, MCHC 32.3, RDW 21.2 H, Plt Count 257, MPV 6.7 L, Neut % (Auto) 90.5 H, Lymph % (Auto) 5.3 L, [place] % (Auto) 3.8, Eos % (Auto) 0.2, Baso % (Auto) 0.2, Neut # (Auto) 20.5 H, Lymph # (Auto) 1.2, [place] # (Auto) 0.9, Eos # (Auto) 0.0, Baso # (Auto) 0.0, Total Counted 100, Neutrophils % (Manual) 92 H, Lymphocytes % (Manual) 4 L, Monocytes % (Manual) 3, Basophils % (Manual) 1.0, Platelet Estimate Normal, Anisocytosis 1+, Ovalocytes 1+, Stomatocytes 1+ 03/22/18 00:20: Sodium 130 L, Potassium 5.0, Chloride 94 L, Carbon Dioxide 24, Anion Gap 17.0 H, BUN 19 H, Creatinine 1.61 H, Estimated Creat Clear 51, Estimated GFR 43 L, Est GFR ( Amer) 52 L, Glucose 138 H, Calcium 8.9, Total Bilirubin 0.6, AST 139 H, ALT 106 H, Alkaline Phosphatase 110, Total Prot ein 7.3, Albumin 3.4, Globulin 3.9 H, Albumin/Globulin Ratio 0.9 L, Plasma/Serum Alcohol 0 03/22/18 00:20: Total Creatine Kinase 6088 H*, CK-MB (CK-2) 27.5 H*, CK-MB (CK- 2) Rel Index 0.5, Troponin I 0.03 03/22/18 01:36: Specimen Source Right radial, O2 % Room air, ABG pH 7.46 H, ABG pCO2 34.1 L, ABG pO2 47.6 L, ABG HCO3 23.5, ABG Total CO2 24.5, ABG O2 Saturation 85 L*, ABG Base Excess -0.4, Miguelito Test Patient unable 03/22/18 01:45: Lactate 2.6 H 03/22/18 02:30: Urine Color Yellow, Urine Appearance Clear, Urine pH 6.0, Ur Specific [place] >= 1.030, Urine Protein 1+, Urine Glucose (UA) 1+, Urine Ketones 1+, Urine Blood 3+, Urine Nitrate Negative, Urine Bilirubin Negative, Urine Urobilinogen 0.2, Ur Leukocyte Esterase Negative, Urine RBC 10-20, Urine WBC 3-5, Urine Bacteria 1+, Hyaline Casts 3-5, Urine Mucus 1+ 03/22/18 02:30: Urine Opiates Screen Negative, Urine Methadone Screen Negative, Ur Barbituates Screen Negative, Ur Phencyclidine Scrn Negative, Ur Amphetamines Screen Positive H, U Benzodiazepines Scrn Negative, Urine Cocaine Screen Negative, U Marijuana (THC) Screen Negative Result diagrams: 03/22/18 00:20 03/22/18 00:20 Orders (Tests/Meds): ED MEDICATIONS Generic Name Dose Route Start Last Admin Trade Name Freq PRN Reason Stop Dose Admin Sodium Chloride 1,000 mls @ 999 mls/hr 03/22/18 01:45 03/22/18 01:36 Sod Chlor 0.9% 1000ml Bag IV 03/22/18 02:45 999 mls/hr .[id number] TAYLA Administration ORDERS Category Date Time Status CT cervical spine wo con Stat Cat Scan 03/22/18 00:[address] facial bones wo con Stat Cat Scan 03/22/18 00:[address] head/brain wo con Stat Cat Scan 03/22/18 00:19 Taken XR chest AP Stat Exams 03/22/18 00:19 Taken XR pelvis 1-2V Stat Exams 03/22/18 00:19 Taken Urinalysis and Microscopic Stat Lab 03/22/18 02:30 Ordered Blood Culture Stat Micro 03/22/18 01:45 Received ABG [Arterial Blood Gas] Stat RT 03/22/18 01:36 Ordered EKG Request [ECG Request by /Toya] Stat Y 03/22/18 01:27 Ordered - Radiology Data #1 Image(s): Chest, Pelvis Image Reviewed: Yes I reviewed the patient's radiology image Preliminary Findings: Abnormal (pneumonia), No Fracture Seen - CT Data CT Scan: Head, C-Spine, Sinus Time Received: 03:[address] Reviewed: Yes: I have viewed the radiologist's interpretation Preliminary Findings: No Fracture Seen - ECG Data Tracing #1 Normal Sinus Rhythm: Yes Ischemic changes: non-specific ST-T wave changes - Physician Consults Physician Consulted: - waiting list Reason -: Pt condition Altered Mental Status HPI - General Chief Complaint: Altered Mental Status Stated Complaint: AMS Time Seen by Provider: 03/22/18 00:15 Mode of Arrival: EMS Source of Information: Patient, EMS, Medical Record Limitations: No Limitations Description of Symptoms (Recalled from ER Triage Doc. by RN): EMS was called for pateint laying on the ground, not really answering questions. Pt has blood on his face, abrasions to both arms and to his back. Upon arrival to ED patient incoherent when trying to answer questiosn - History of Present Illness HPI narrative: pt brought by ems as he was found down at home for unk period and unk circumstances - pt unable to give hx - MD complaint: altered mental status Onset (ago): unknown Timing confirmed by: other (police) Severity: moderate Context: unknown - Related Data Home Medications Medication Instructions Recorded Confirmed Lisinopril [Lisinopril 30mg Tablet] 30 mg PO DAILY 08/10/17 03/15/18 pantoprazole 40 mg tablet,delayed 40 mg PO DAILY 02/06/18 03/15/18 release dicyclomine 20 mg tablet 20 mg PO QID 02/22/18 03/15/18 prednisone 10 mg tablets in a dose mg PO PER PKG DIR tab 02/22/18 03/15/18 pack sucralfate 1 gram tablet 1 g PO BID tab 02/22/18 03/15/18 Previous Rx's Medication Instructions Recorded gabapentin 800 mg tablet 800 mg PO TID #90 tab 03/15/18 tramadol 50 mg tablet 50 mg PO TID #90 tab 03/15/18 Allergies Allergy/AdvReac Type Severity Reaction Status Date / Time No Known Allergies Allergy Verified 03/15/18 08:57 [facility] History - Hepatitis A Screen Drug use history?: Yes High risk sexual behaviors?: No History of sexually transmitted infection?: No Currently employed?: No Childcare worker?: No Do you have indoor plumbing?: Yes Do you have electricity?: Yes Attestation statement:: This patient has been screened for Hepatitis A risk factors. I have reviewed the patient's past medical history: Yes Medical History: Reports:: Gastroesophageal Reflux Disease(GERD), Hypertension, Kidney Stones Denies:: Cancer, Diabetes Mellitus Type 1, Diabetes Mellitus Type 2, MRSA Other Medical History: Reports: Arthritis Comment: UC, Chron's Disease Other Surgeries: Yes: Colonoscopy, Other Amputation: No Fractures: No - Social History Smoking Status: Current every day smoker Tobacco Type: cigarettes # Packs/Day (cigarettes): 1 #Yrs smoked (if former smoker): 40 Alcohol Intake: former Alcohol Intake Frequency:: a few times a month Substance Use Type: denies use Occupational Status: disabled Housing: apartment Household Members: spouse - Psychiatric History Expresses thoughts of harming self/others: None Suicide Plan Description: No Plan Family Hx:: Cancer ROS Obtained: Yes unobtainable due to mental status Physical Exam - General General appearance: other (arousable ) - Head Head exam: other (scattered abrasions) - Eye Eye exam: Present: PERRL, EOMI. Absent: scleral icterus - ENT ENT exam: Present: mucous membranes dry - Neck Neck exam: Present: trachea midline. Absent: meningismus - Respiratory Respiratory exam: Present: other (dec bs bilat ). Absent: respiratory distress - Cardiovascular Cardiovascular exam: Present: regular rate, systolic murmur. Absent: rubs - Abdominal Exam Abdominal exam: Present: soft - Extremities Exam Extremities exam: Absent: pedal edema - Neurological Exam Neurological exam: Present: other (no focal changes or posturing and arousable with touch ) - Skin Skin exam: Present: other (bruising )
[2018-03-22 01:52] LABS: ABG Base Excess -0.4 mmol/L (-2.4-2.3); ABG HCO3 23.5 mmhg (22.0-26.0); ABG Oxygen Saturation 85 % (90-100); ABG PCO2 34.1 mmhg (35.0-45.0); ABG PH 7.46 mmol/L (7.35-7.45); ABG TCO2 24.5 mmhg (23-27)
[2018-03-22 01:54] LABS: Allen's Test Patient Unable; Oxygen ROOM AIR %
[2018-03-22 01:55] LABS: ABG PO2 47.6 mmhg (80-100)
[2018-03-22 02:19] LABS: Anisocytosis 1+; Lymphocytes % 4 % (10-50); Monocytes % 3 % (2-9); Neutrophils % 92 % (42-76); Ovalocytes 1+; Stomatocytes 1+; Total Cells Counted 100
[2018-03-22 02:35] LABS: Microscopic, Urine URINE MICROSCOPIC (MICROSCOPIC)
[2018-03-22 02:36] LABS: Appearance,Urine CLEAR (Clear); Bilirubin,Urine Negative (Negative); Blood, Urine 3+ (Negative); Color,Urine YELLOW (Yellow); Glucose,Urine (UA) 1+ (Negative); Ketones,Urine 1+ (Negative); Leukocyte Esterase,Urine Negative (Negative); Protein,Urine 1+ (Negative); Specific Gravity, Urine >= 1.030 (1.005-1.030); Urobilinogen,Urine 0.2 EU/dl (0.2)
[2018-03-22 02:45] LABS: Amphetamine/Metha Screen,Urine Positive ng/mL (<1000); Barbiturates Screen,Urine Negative ng/mL (<200); Benzodiazepines Screen,Urine Negative ng/mL (<200); Cannabinoid Screen,Urine Negative ng/mL (<50); Cocaine Screen,Urine Negative ng/mL (<300); Methadone Screen,Urine Negative ng/mL (<300); Opiate Screen,Urine Negative ng/mL (<300); Phencyclidine Screen,Urine Negative ng/mL (<25)
[2018-03-22 02:54] LABS: Bacteria,Urine 1+ /lpf; Mucus,Urine 1+ /lpf
[2018-03-22 06:19] LABS: Basophils % 0.1 % (0.1-2.0); Eosinophils # 0.1 K/mm3 (0.0-0.4); Eosinophils % 0.4 % (0.1-12.0); Hematocrit 39.3 % (42.0-52.0); Hemoglobin 12.8 g/dL (14.1-18.0); Lymphocytes # 1.3 K/mm3 (0.7-4.5); Lymphocytes % 7.4 % (10-50); Mean Corpuscular HGB Conc 32.5 g/dL (31.8-35.4); Mean Platelet Volume 6.6 fl (7.4-10.4); Monocytes # 0.7 K/mm3 (0.1-1.0); Monocytes % 4.1 % (1.7-9.3); Neutrophils # 15.9 K/mm3 (1.8-7.8); Neutrophils % 88.1 % (37.0-80.0); Platelet Count 217 K/mm3 (142-424); Red Blood Count 4.41 M/mm3 (4.60-6.20); Red Cell Distribution Width 21.2 % (11.5-17.5); White Blood Count 18.1 K/mm3 (4.8-10.8)
[2018-03-22 06:52] LABS: Anion Gap 13.6 mEq/L (5-15); Calcium 8.2 mg/dL (8.5-10.1); Potassium 4.6 mmoL/L (3.5-5.1)
--- NOTE | 2018-03-22 08:14 | Pharmacy Consult Notes ---
[facility] Pharmacy VTE Monitoring - Patient Demographics Admission date: 03/22/18 Report Date: 03/22/18 Time: 08:13 Allergies/Adverse Reactions: Patient Allergies No Known Allergies Allergy (Verified 03/15/18 08:57) Height: 1.75 m Weight: 68.634 kg Patient Problems: Current Active Problems Acute renal insufficiency (Acute) Altered mental status (Acute) Bilateral pneumonia (Acute) Rhabdomyolysis (Acute) Amphetamine abuse (Acute) - VTE Risk Labs: VTE Related Lab Results Hgb 12.8 g/dL (14.1-18.0) L 03/22/18 06:03 Hct 39.3 % (42.0-52.0) L 03/22/18 06:03 Plt Count 217 K/mm3 (142-424) 03/22/18 06:03 BUN 17 mg/dL (7-18) 03/22/18 06:03 Creatinine 1.22 mg/dL (0.70-1.30) D 03/22/18 06:03 Estimated Creat Clear 59 mL/min (50-200) 03/22/18 06:03 VTE Score: 2 - Prophylaxis VTE Prophylaxis Ordered?: Yes Types of VTE Prophylaxis: Pharmacological Pharmacologic Type: Enoxaparin - VTE Diagnosis Confirmed Treatment or plan recommended: Continue Current Treatment
--- NOTE | 2018-03-22 10:10 | Cardiology Report ---
PROCEDURE: 2-D M-mode and color Doppler study INDICATIONS FOR THE TEST: Chest pain COPD Heart MurmurX Tobacco SmokingX Palpitations Fatigue Syncope Edema HypertensionXDiabetes Mellitus Rheumatic Fever SOB RODRÍGUEZ Obesity Hyperlipidemia Family History HD Additional History ALTERED MENTAL STATUS,H/O DRUG ABUSE PATIENT INFORMATION HEIGHT: 69 WEIGHT:175 GENDER: Male B/P:167/89 2-D/M-MODE INTERPRETATION: 2-D MEASUREMENTS OBSERVED VALUES IN CMS Right Ventricular Dimension (RVDd) 1.1 Interventricular Septum (Thickness)(IVsd) .9 Left Ventricular Internal Dimensions(LVIDd) 4.4 Left Ventricular Posterior Wall (Thickness)(LVPWd) .8 Aortic Root 3.0 Aortic Cusp Separation Left Atrial Dimensions (LAD) 2.8 2D 1. Left atrium is mildly enlarged, left ventricle is normal size, mild concentric left ventricular hypertrophy, visually estimated ejection fraction 55% with no regional wall motion abnormality. 2. The right atrium and the ventricular normal size and contractility. 3. The aortic valve is minimally thickened and fibrosed. 4. The mitral and tricuspid valve are grossly normal. 5. The pulmonic valve is poorly visualized. 6. No significant pericardial effusion noted. DOPPLER INTERROGATION: Doppler interrogation of the aortic, mitral and tricuspid valvular presence of mild mitral and tricuspid regurgitation, tricuspid regurgitation jet velocity is inadequate for calculation of the right ventricular systolic pressure, grade 1 diastolic dysfunction seen without tissue Doppler evidence of raised left atrial pressure. CONCLUSION: 1. Mildly enlarged left atrium, normal left ventricular size, mild concentric left ventricular hypertrophy, visually estimated ejection fraction of 55% with no regional wall motion abnormality, grade 1 diastolic dysfunction seen without tissue Doppler evidence of raised left atrial pressure. 2. Mild mitral and tricuspid regurgitation 3. No significant pericardial effusion noted.
--- NOTE | 2018-03-22 13:58 | History & Physical Report ---
*Admission Date: 03/22/18 *Chief complaint: change in mental status- *History of present illness: wm who was found lying on floor with dried blood and uncertain of timeframe and etiology-pt was seen in the ed with altered mental status with rhabdomyolysis and bilat pneumonia and was discussed with [facility] and on waiting list - pt was admitted with fluids and iv abx [facility] History I have reviewed the patient's past medical history: Yes Medical History: Reports:: Gastroesophageal Reflux Disease(GERD), Hypertension, Kidney Stones Denies:: Cancer, Diabetes Mellitus Type 1, Diabetes Mellitus Type 2, MRSA Other Medical History: Reports: Arthritis Other Surgeries: Yes: Colonoscopy, Other Amputation: No Fractures: No - *Social History Smoking Status: Current every day smoker Tobacco Type: cigarettes # Packs/Day (cigarettes): 1 #Yrs smoked (if former smoker): 40 Alcohol Intake: never Alcohol Intake Frequency:: a few times a month Substance Use Type: amphetamines Occupational Status: disabled Housing: apartment Household Members: spouse - Psychiatric History Expresses thoughts of harming self/others: None Suicide Plan Description: No Plan *Family Hx:: Cancer Review of Systems - Review of Systems Review of systems:: unable to obtain Meds Home Medications Medication Instructions Recorded Confirmed Type Lisinopril [Lisinopril 30mg Tablet] 30 mg PO DAILY 08/10/17 03/22/18 History pantoprazole 40 mg tablet,delayed 40 mg PO DAILY 02/06/18 03/22/18 History release dicyclomine 20 mg tablet 20 mg PO QID 02/22/18 03/22/18 History sucralfate 1 gram tablet 1 g PO BID tab 02/22/18 03/22/18 History Tramadol HCl [Tramadol 50mg 50 mg PO TID 03/22/18 03/22/18 History Tab] Allergies Allergy/AdvReac Type Severity Reaction Status Date / Time No Known Allergies Allergy Verified 03/15/18 08:57 Exam Vital signs and Labs for Last 24 Hours: Temp Pulse Resp BP Pulse Ox 98.8 F 72 18 122/74 95 03/22/18 12:00 03/22/18 13:03 03/22/18 12:00 03/22/18 12:00 03/22/18 12:00 Laboratory Results - last 24 hr 03/22/18 00:20: WBC 22.6 H*, RBC 4.91, Hgb 14.1, Hct 43.7, MCV 88.8, MCH 28.7, MCHC 32.3, RDW 21.2 H, Plt Count 257, MPV 6.7 L, Neut % (Auto) 90.5 H, Lymph % (Auto) 5.3 L, [place] % (Auto) 3.8, Eos % (Auto) 0.2, Baso % (Auto) 0.2, Neut # (Auto) 20.5 H, Lymph # (Auto) 1.2, [place] # (Auto) 0.9, Eos # (Auto) 0.0, Baso # (Auto) 0.0, Total Counted 100, Neutrophils % (Manual) 92 H, Lymphocytes % (Manual) 4 L, Monocytes % (Manual) 3, Basophils % (Manual) 1.0, Platelet Estimate Normal, Anisocytosis 1+, Ovalocytes 1+, Stomatocytes 1+ 03/22/18 00:20: Sodium 130 L, Potassium 5.0, Chloride 94 L, Carbon Dioxide 24, Anion Gap 17.0 H, BUN 19 H, Creatinine 1.61 H, Estimated Creat Clear 51, Estimated GFR 43 L, Est GFR ( Amer) 52 L, Glucose 138 H, Calcium 8.9, Total Bilirubin 0.6, AST 139 H, ALT 106 H, Alkaline Phosphatase 110, Total Protein 7.3, Albumin 3.4, Globulin 3.9 H, Albumin/Globulin Ratio 0.9 L, Plasma/Serum Alcohol 0 03/22/18 00:20: Total Creatine Kinase 6088 H*, CK-MB (CK-2) 27.5 H*, CK-MB (CK- 2) Rel Index 0.5, Troponin I 0.03 03/22/18 01:36: Specimen Source Right radial, O2 % Room air, ABG pH 7.46 H, ABG pCO2 34.1 L, ABG pO2 47.6 L, ABG HCO3 23.5, ABG Total CO2 24.5, ABG O2 Saturation 85 L*, ABG Base Excess -0.4, Miguelito Test Patient unable 03/22/18 01:45: Lactate 2.6 H 03/22/18 02:30: Urine Color Yellow, Urine Appearance Clear, Urine pH 6.0, Ur Specific [place] >= 1.030, Urine Protein 1+, Urine Glucose (UA) 1+, Urine Ketones 1+, Urine Blood 3+, Urine Nitrate Negative, Urine Bilirubin Negative, Urine Urobilinogen 0.2, Ur Leukocyte Esterase Negative, Urine RBC 10-20, Urine WBC 3-5, Urine Bacteria 1+, Hyaline Casts 3-5, Urine Mucus 1+ 03/22/18 02:30: Urine Opiates Screen Negative, Urine Methadone Screen Negative, Ur Barbituates Screen Negative, Ur Phencyclidine Scrn Negative, Ur Amphetamines Screen Positive H, U Benzodiazepines Scrn Negative, Urine Cocaine Screen Negative, U Marijuana (THC) Screen Negative 03/22/18 06:03: WBC 18.1 H, RBC 4.41 L, Hgb 12.8 L, Hct 39.3 L, MCV 89.0, MCH 29.0, MCHC 32.5, RDW 21.2 H, Plt Count 217, MPV 6.6 L, Neut % (Auto) 88.1 H, Lymph % (Auto) 7.4 L, [place] % (Auto) 4.1, Eos % (Auto) 0.4, Baso % (Auto) 0.1, Neut # (Auto) 15.9 H, Lymph # (Auto) 1.3, [place] # (Auto) 0.7, Eos # (Auto) 0.1, Baso # (Auto) 0.0 03/22/18 06:03: Sodium 131 L, Potassium 4.6, Chloride 97 L, Carbon Dioxide 25, Anion Gap 13.6, BUN 17, Creatinine 1.22 D, Estimated Creat Clear 59, Estimated GFR 60, Est GFR ( Amer) 72 D, Glucose 139 H, Calcium 8.2 L, Magnesium 2.1, Total Creatine Kinase 5589 H*, Troponin I 0.04 03/22/18 06:03: Lactate 1.5 03/22/18 09:30: Troponin I 0.05 I & O for Last 24 hours: Intake & Output 03/20/18 03/21/18 03/22/18 03/23/18 11:59 11:59 11:59 11:59 Output Total 1400 / 1400 Balance -1400 / -1400 Weight 152 lb 9 oz - Constitutional no acute distress - *Routine HEENT Exam Head: Present: abrasion. Absent: Nuñez's sign, CSF rhinorrhea, CSF otorrhea Eye: Present: EOMI, PERRL. Absent: conjunctival icterus ENT: Present: mucous membranes dry Comments: no evid of tongue biting - *Routine Neck Exam Absent: JVD - *Routine Respiratory Exam Present: prolonged expiratory phase, wheezes, crackles. Absent: respiratory distress - *Routine Cardiovascular Exam Present: RRR, murmur, S4. Absent: rubs - *Routine Abdominal Exam Present: soft - *Routine Extremities Exam Absent: joint swelling - *Routine Skin Exam Absent: rash Comments: scattered abrasions - *Routine Neurological Exam Present: altered mental status (no focal changes and no posturing ) - Routine Psychiatric Exam Present: unable to assess Assessment and Plan (1) Altered mental status Current visit: Yes Status: Acute Category: Medical Code(s): R41.82 - Altered mental status, unspecified (2) Rhabdomyolysis Current visit: Yes Status: Acute Category: Medical Code(s): M62.82 - Rhabdomyolysis (3) Amphetamine abuse Current visit: Yes Status: Acute Category: Medical Code(s): F15.10 - Other stimulant abuse, uncomplicated (4) Hyponatremia Current visit: Yes Status: Acute Category: Medical Code(s): E87.1 - Hypo- osmolality and hyponatremia (5) Acute renal insufficiency Current visit: Yes Status: Acute Category: Medical Code(s): N28.9 - Disorder of kidney and ureter, unspecified (6) Pneumonia Current visit: Yes Status: Acute Qualifiers: Pneumonia type: aspiration pneumonia Laterality: bilateral Lung location: unspecified part of lung Category: Medical Code(s): J18.9 - Pneumonia, unspecified organism
--- NOTE | 2018-03-23 10:02 | Progress Note ---
Internal Medicine - PN: Subj *Date: 03/23/18 *Time: 10:00 Interval history: doing better - more alert Exam Vital signs and Labs for Last 24 Hours: Temp Pulse Resp BP Pulse Ox 98.9 F 92 H 28 H 150/82 H 93 L 03/23/18 08:00 03/23/18 08:00 03/23/18 08:00 03/23/18 08:00 03/23/18 08:00 I & O for Last 24 hours: Intake & Output 03/20/18 03/21/18 03/22/18 03/23/18 11:59 11:59 11:59 11:59 Intake Total 4096 / 4096 Output Total 1400 / 1400 2800 / 2800 Balance -1400 / -1400 1296 / 1296 Weight 152 lb 9 oz 149 lb 7 oz - Constitutional no acute distress, thin - *Routine HEENT Exam Head: Present: facial swelling (facial bruising ) Eye: Present: EOMI, PERRL ENT: Present: mucous membranes dry - *Routine Neck Exam Absent: JVD - *Routine Respiratory Exam Present: decreased breath sounds - *Routine Cardiovascular Exam Present: RRR, murmur - *Routine Abdominal Exam Present: soft - *Routine Extremities Exam Absent: calf tenderness - *Routine Skin Exam Present: ecchymosis - *Routine Neurological Exam Present: alert, oriented X3, CN II-XII intact - Routine Psychiatric Exam Present: cooperative Assessment and Plan (1) Altered mental status Current visit: Yes Status: Acute Category: Medical Code(s): R41.82 - Altered mental status, unspecified (2) Rhabdomyolysis Current visit: Yes Status: Acute Category: Medical Code(s): M62.82 - Rhabdomyolysis (3) Amphetamine abuse Current visit: Yes Status: Acute Category: Medical Code(s): F15.10 - Other stimulant abuse, uncomplicated (4) Hyponatremia Current visit: Yes Status: Acute Category: Medical Code(s): E87.1 - Hypo- osmolality and hyponatremia (5) Acute renal insufficiency Current visit: Yes Status: Acute Category: Medical Code(s): N28.9 - Disorder of kidney and ureter, unspecified (6) Pneumonia Current visit: Yes Status: Acute Qualifiers: Pneumonia type: aspiration pneumonia Laterality: bilateral Lung location: unspecified part of lung Category: Medical Code(s): J18.9 - Pneumonia, unspecified organism
[2018-03-23 10:55] LABS: Basophils % 0.1 % (0.1-2.0); Eosinophils # 0.1 K/mm3 (0.0-0.4); Eosinophils % 0.8 % (0.1-12.0); Hemoglobin 11.8 g/dL (14.1-18.0); Lymphocytes # 0.8 K/mm3 (0.7-4.5); Lymphocytes % 8.6 % (10-50); Mean Corpuscular HGB Conc 31.8 g/dL (31.8-35.4); Mean Corpuscular Hemoglobin 28.8 pg (27.0-31.2); Mean Corpuscular Volume 90.6 fl (80-94); Mean Platelet Volume 7.7 fl (7.4-10.4); Monocytes # 0.5 K/mm3 (0.1-1.0); Neutrophils # 7.5 K/mm3 (1.8-7.8); Neutrophils % 84.4 % (37.0-80.0); Platelet Count 222 K/mm3 (142-424); Red Blood Count 4.08 M/mm3 (4.60-6.20); Red Cell Distribution Width 21.3 % (11.5-17.5); White Blood Count 8.9 K/mm3 (4.8-10.8)
--- NOTE | 2018-03-24 09:26 | Progress Note ---
Internal Medicine - PN: Subj *Date: 03/24/18 *Time: 09:24 Interval history: more alert - still with o2 and sob but cxr better Exam Vital signs and Labs for Last 24 Hours: Temp Pulse Resp BP Pulse Ox 99.5 F 83 21 154/81 H 96 03/24/18 08:00 03/24/18 08:00 03/24/18 08:00 03/24/18 08:00 03/24/18 08:00 Laboratory Results - last 24 hr 03/23/18 10:47: WBC 8.9 D, RBC 4.08 L, Hgb 11.8 L, Hct 37.0 L, MCV 90.6, MCH 28.8, MCHC 31.8, RDW 21.3 H, Plt Count 222, MPV 7.7, Neut % (Auto) 84.4 H, Lymph % (Auto) 8.6 L, [place] % (Auto) 6.0, Eos % (Auto) 0.8, Baso % (Auto) 0.1, Neut # (Auto) 7.5, Lymph # (Auto) 0.8, [place] # (Auto) 0.5, Eos # (Auto) 0.1, Baso # (Auto) 0.0 03/23/18 10:47: Sodium 134 L, Potassium 4.0, Chloride 102, Carbon Dioxide 24, Anion Gap 12.0, BUN 7 D, Creatinine 0.96 D, Estimated Creat Clear 71, Estimated GFR 79, Est GFR ( Amer) 95 D, Glucose 97, Calcium 8.0 L, Total Creatine Kinase 1945 H* D I & O for Last 24 hours: Intake & Output 03/21/18 03/22/18 03/23/18 03/24/18 11:59 11:59 11:59 11:59 Intake Total 4396 / 4396 2927 / 2927 Output Total 1400 / 1400 3000 / 3000 1000 / 1000 Balance -1400 / -1400 1396 / 1396 1927 / 1927 Weight 152 lb 9 oz 149 lb 7 oz Microbiology Reports for the Last 24 Hours: Microbiology 03/22/18 01:45 Blood Blood Culture - Preliminary NO GROWTH AFTER 48 HOURS 03/22/18 01:45 Blood Blood Culture - Preliminary NO GROWTH AFTER 48 HOURS - Constitutional no acute distress - *Routine HEENT Exam Head: Present: normocephalic Eye: Present: EOMI, PERRL. Absent: conjunctival icterus ENT: Present: mucous membranes dry - *Routine Neck Exam Absent: JVD - *Routine Respiratory Exam Present: rhonchi, wheezes - *Routine Cardiovascular Exam Present: RRR, murmur - *Routine Abdominal Exam Present: soft - *Routine Extremities Exam Absent: calf tenderness - *Routine Skin Exam Present: intact - *Routine Neurological Exam Present: alert, oriented X3, CN II-XII intact - Routine Psychiatric Exam Present: normal affect Assessment and Plan (1) Altered mental status Current visit: Yes Status: Acute Category: Medical Code(s): R41.82 - Altered mental status, unspecified (2) Rhabdomyolysis Current visit: Yes Status: Acute Category: Medical Code(s): M62.82 - Rhabdomyolysis (3) Amphetamine abuse Current visit: Yes Status: Acute Category: Medical Code(s): F15.10 - Other stimulant abuse, uncomplicated (4) Hyponatremia Current visit: Yes Status: Acute Category: Medical Code(s): E87.1 - Hypo- osmolality and hyponatremia (5) Acute renal insufficiency Current visit: Yes Status: Acute Category: Medical Code(s): N28.9 - Diso rder of kidney and ureter, unspecified (6) Pneumonia Current visit: Yes Status: Acute Qualifiers: Pneumonia type: aspiration pneumonia Laterality: bilateral Lung location: unspecified part of lung Category: Medical Code(s): J18.9 - Pneumonia, unspecified organism
--- NOTE | 2018-03-25 07:59 | Progress Note ---
Internal Medicine - PN: Subj *Date: 03/25/18 *Time: 07:58 Exam Vital signs and Labs for Last 24 Hours: Temp Pulse Resp BP Pulse Ox 98.7 F 73 16 157/94 H 97 03/25/18 07:43 03/25/18 07:43 03/25/18 07:43 03/25/18 07:43 03/25/18 07:43 Laboratory Results - last 24 hr 03/24/18 09:50: Total Creatine Kinase 832 H* D 03/24/18 13:15: Stl Aeromonas (PCR) Not detected, Stl C. cayetanensis PCR Not detected, Stool Rotavirus (PCR) Not detected, Stl Adenov F 40/41 PCR Not detected, Stool Astrovirus (PCR) Not detected, Stool Campylobacter PCR Not detected, Stl C.difficile Tox PCR Not detected, Stool Cryptosporidium PCR Not detected, Stl E.coli Shiga Tox PCR Not detected, Stool E coli O157 PCR Not detected, Stl Enterotoxigenic E PCR Not detected, Stool EPEC (PCR) Not detected, Stool EAEC (PCR) Not detected, Stl E. histolytica PCR Not detected, Stool Giardia Lamblia PCR Not detected, Stool Salmonella PCR Not detected, Stool Sapovirus (PCR) Not detected, Stl P. shigelloides PCR Not detected, Stl Shigella/EIEC PCR Not detected, St Y.enterocolitica PCR Not detected, Stool Vibrio (PCR) Not detected, Stl Vibrio cholerae PCR Not detected, Stl Norovirus GI/GII PCR Not detected I & O for Last 24 hours: Intake & Output 03/22/18 03/23/18 03/24/18 03/25/18 23:59 23:59 23:59 23:59 Intake Total 2182 / 2182 3430 / 3430 4660 / 4660 1539 / 1539 Output Total 2700 / 2700 2100 / 2100 900 / 900 600 / 600 Balance -518 / -518 1330 / 1330 3760 / 3760 939 / 939 Weight 69.201 kg 67.784 kg 68.096 kg Microbiology Reports for the Last 24 Hours: Microbiology 03/24/18 08:00 Sputum - Expectorated Sputum Gram Stain - Final Assessment and Plan (1) Altered mental status Current visit: Yes Status: Acute Category: Medical Code(s): R41.82 - Altered mental status, unspecified (2) Rhabdomyolysis Current visit: Yes Status: Acute Category: Medical Code(s): M62.82 - R habdomyolysis (3) Amphetamine abuse Current visit: Yes Status: Acute Category: Medical Code(s): F15.10 - Other stimulant abuse, uncomplicated (4) Hyponatremia Current visit: Yes Status: Acute Category: Medical Code(s): E87.1 - Hypo- osmolality and hyponatremia (5) Acute renal insufficiency Current visit: Yes Status: Acute Category: Medical Code(s): N28.9 - Disorder of kidney and ureter, unspecified (6) Pneumonia Current visit: Yes Status: Acute Qualifiers: Pneumonia type: aspiration pneumonia Laterality: bilateral Lung location: unspecified part of lung Category: Medical Code(s): J18.9 - Pneumonia, unspecified organism The patient's infection will respond to the chosen ABx?: Yes Is the patient receiving the right drug, dose, and route?: Yes Could a more targeted ABx be ordered?: No
[2018-03-25 12:45] LABS: Basophils % 0.3 % (0.1-2.0); Eosinophils # 0.1 K/mm3 (0.0-0.4); Eosinophils % 2.4 % (0.1-12.0); Hemoglobin 11.8 g/dL (14.1-18.0); Lymphocytes # 0.9 K/mm3 (0.7-4.5); Lymphocytes % 14.9 % (10-50); Mean Corpuscular HGB Conc 31.9 g/dL (31.8-35.4); Mean Corpuscular Hemoglobin 28.8 pg (27.0-31.2); Mean Corpuscular Volume 90.3 fl (80-94); Mean Platelet Volume 6.9 fl (7.4-10.4); Monocytes # 0.3 K/mm3 (0.1-1.0); Monocytes % 5.7 % (1.7-9.3); Neutrophils # 4.6 K/mm3 (1.8-7.8); Neutrophils % 76.8 % (37.0-80.0); Platelet Count 320 K/mm3 (142-424); Red Cell Distribution Width 20.8 % (11.5-17.5)
[2018-03-25 12:47] LABS: Anion Gap 12.6 mEq/L (5-15); Calcium 7.9 mg/dL (8.5-10.1)
[2018-03-25 12:50] LABS: Potassium 2.6 mmoL/L (3.5-5.1)
--- NOTE | 2018-03-25 13:16 | Discharge Summary ---
General - General Admission date:: 03/22/18 Discharge date: 03/25/18 HPI HPI: wm who was found lying on floor with dried blood and uncertain of timeframe and etiology-pt was seen in the ed with altered mental status with rhabdomyolysis and bilat pneumonia and was discussed with [facility] and on waiting list - pt was admitted with fluids and iv abx Hospital Course Hospital Course: pt with slow but progressive improvement in labs and resp status - he was able to tolerate diet and be off oxygen and ambulate in halls - labs improved - discussed tob and drug use with pt and will see pt this week for close follow up Objective Vital signs: Temp Pulse Resp BP Pulse Ox 98.0 F 60 18 169/91 H 95 03/25/18 11:27 03/25/18 11:27 03/25/18 11:27 03/25/18 11:27 03/25/18 11:27 no acute distress - *Routine HEENT Exam Head: Present: normocephalic Eye: Present: EOMI, PERRL, periorbital ecchymosis ENT: Present: mucous membranes dry - *Routine Neck Exam Present: supple - *Routine Respiratory Exam Present: rhonchi - *Routine Cardiovascular Exam Present: RRR, murmur - *Routine Abdominal Exam Present: soft - *Routine Extremities Exam Absent: calf tenderness - *Routine Skin Exam Present: intact - *Routine Neurological Exam Present: alert, oriented X3, CN II-XII intact - Routine Psychiatric Exam Present: normal affect Results Labs on day of discharge: Labs from last 24 hours 03/25/18 03/25/18 03/25/18 12:30 12:30 12:30 WBC 6.0 D RBC 4.10 L Hgb 11.8 L Hct 37.0 L MCV 90.3 MCH 28.8 MCHC 31.9 RDW 20.8 H Plt Count 320 D MPV 6.9 L Neut % (Auto) 76.8 Lymph % (Auto) 14.9 [place] % (Auto) 5.7 Eos % (Auto) 2.4 Baso % (Auto) 0.3 Neut # (Auto) 4.6 Lymph # (Auto) 0.9 [place] # (Auto) 0.3 Eos # (Auto) 0.1 Baso # (Auto) 0.0 Sodium 139 Potassium 2.6 L* D Chloride 106 Carbon Dioxide 23 Anion Gap 12.6 BUN 6 L Creatinine 1.02 Estimated Creat Clear 70 Estimated GFR 73 Est GFR ( Amer) 89 Glucose 118 H Calcium 7.9 L Total Creatine Kinase 260 D Stl Aeromonas (PCR) Stl C. cayetanensis PCR Stool Rotavirus (PCR) Stl Adenov F 40/41 PCR Stool Astrovirus (PCR) Stool Campylobacter PCR Stl C.difficile Tox PCR Stool Cryptosporidium PCR Stl E.coli Shiga Tox PCR Stool E coli O157 PCR Stl Enterotoxigenic E PCR Stool EPEC (PCR) Stool EAEC (PCR) Stl E. histolytica PCR Stool Giardia Lamblia PCR Stool Salmonella PCR Stool Sapovirus (PCR) Stl P. shigelloides PCR Stl Shigella/EIEC PCR St Y.enterocolitica PCR Stool Vibrio (PCR) Stl Vibrio cholerae PCR Stl Norovirus GI/GII PCR 03/24/18 13:15 WBC RBC Hgb Hct MCV MCH MCHC RDW Plt Count MPV Neut % (Auto) Lymph % (Auto) [place] % (Auto) Eos % (Auto) Baso % (Auto) Neut # (Auto) Lymph # (Auto) [place] # (Auto) Eos # (Auto) Baso # (Auto) Sodium Potassium Chloride Carbon Dioxide Anion Gap BUN Creatinine Estimated Creat Clear Estimated GFR Est GFR ( Amer) Glucose Calcium Total Creatine Kinase Stl Aeromonas (PCR) Not detected Stl C. cayetanensis PCR Not detected Stool Rotavirus (PCR) Not detected Stl Adenov F 40/ PCR Not detected Stool Astrovirus (PCR) Not detected Stool Campylobacter PCR Not detected Stl C.difficile Tox PCR Not detected Stool Cryptosporidium PCR Not detected Stl E.coli Shiga Tox PCR Not detected Stool E coli O157 PCR Not detected Stl Enterotoxigenic E PCR Not detected Stool EPEC (PCR) Not detected Stool EAEC (PCR) Not detected Stl E. histolytica PCR Not detected Stool Giardia Lamblia PCR Not detected Stool Salmonella PCR Not detected Stool Sapovirus (PCR) Not detected Stl P. shigelloides PCR Not detected Stl Shigella/EIEC PCR Not detected St Y.enterocolitica PCR Not detected Stool Vibrio (PCR) Not detected Stl Vibrio cholerae PCR Not detected Stl Norovirus GI/GII PCR Not detected Preliminary micro results at discharge 03/22/18 01:45 Blood Culture - Preliminary Blood NO GROWTH AFTER 48 HOURS 03/22/18 01:45 Blood Culture - Preliminary Blood NO GROWTH AFTER 48 HOURS DS: Diagnosis - Discharge Diagnosis (1) Altered mental status Status: Acute (2) Rhabdomyolysis Status: Acute (3) Amphetamine abuse Status: Acute (4) Hyponatremia Status: Acute (5) Acute renal insufficiency Status: Acute (6) Pneumonia Status: Acute (7) Hypokalemia Status: Acute (8) Facial trauma Status: Acute (9) Nasal fracture Status: Acute Discharge Plan - Patient Discharge Instructions ACTIVITY: Continue current activity DIET: continue same diet - Follow up Plan Disposition: Home, Self-Intermediate Medications: Home Medications Medication Instructions Recorded Confirmed Type Lisinopril [Lisinopril 30mg Tablet] 30 mg PO DAILY 08/10/17 03/22/18 History pantoprazole 40 mg tablet,delayed 40 mg PO DAILY 02/06/18 03/22/18 History release dicyclomine 20 mg tablet 20 mg PO QID 02/22/18 03/22/18 History sucralfate 1 gram tablet 1 g PO BID tab 02/22/18 03/22/18 History Tramadol HCl [Tramadol 50mg 50 mg PO TID 03/22/18 03/22/18 History Tab] Prescriptions/Medication Reconciliation: New levoFLOXacin [Levaquin 500mg tab] 500 mg PO DAILY #7 tab Continue sucralfate 1 gram tablet 1 g PO BID tab pantoprazole 40 mg tablet,delayed release 40 mg PO DAILY Lisinopril [Lisinopril 30mg Tablet] 30 mg PO DAILY Discontinued dicyclomine 20 mg tablet 20 mg PO QID gabapentin 800 mg tablet 800 mg PO TID #90 tab Tramadol HCl [Tramadol 50mg Tab] 50 mg PO TID
== END 2018-03-25 14:05 | disposition home or self-care (01) | DRG 194 ==
LOC: ER 23:50 → 2ND 03-22 03:31
PROVIDERS: ADMIT Emergency Medicine; ATTEND Emergency Medicine
CPT/HCPCS: 36415; 70450; 70486; 71010; 71020; 71045; 71046; 72125; 72170; 74176; 80048; 80053; 80305; 81001; 82550; 82553; 82803; 83605; 83735; 84484; 85007; 85025; 87040; 87070; 87205; 87507; 93005; 93306; 94640; 94761; 96365; 96366; 96367; 99285; J1956; J2405; J2543

== ENCOUNTER → 2018-04-04 10:15 | Outpatient (CLI) | payer MEDICARE, MEDICAID, SELFPAY ==
[2018-04-04 11:20] LABS: Basophils # 0.1 K/mm3 (0-0.2); Basophils % 0.9 % (0.1-2.0); Eosinophils # 0.1 K/mm3 (0.0-0.4); Eosinophils % 0.8 % (0.1-12.0); Hematocrit 42.2 % (42.0-52.0); Hemoglobin 13.2 g/dL (14.1-18.0); Lymphocytes # 2.3 K/mm3 (0.7-4.5); Lymphocytes % 27.7 % (10-50); Mean Corpuscular HGB Conc 31.4 g/dL (31.8-35.4); Mean Corpuscular Hemoglobin 28.3 pg (27.0-31.2); Mean Platelet Volume 6.7 fl (7.4-10.4); Monocytes # 0.6 K/mm3 (0.1-1.0); Monocytes % 7.6 % (1.7-9.3); Neutrophils # 5.3 K/mm3 (1.8-7.8); Platelet Count 792 K/mm3 (142-424); Red Blood Count 4.69 M/mm3 (4.60-6.20); Red Cell Distribution Width 20.3 % (11.5-17.5); White Blood Count 8.5 K/mm3 (4.8-10.8)
[2018-04-04 11:57] LABS: Alanine Aminotransferase 46 U/L (12-78); Albumin Level 3.3 gm/dL (3.4-5.0); Alkaline Phosphatase 97 U/L (46-116); Anion Gap 15.9 mEq/L (5-15); Aspartate Amino Transferase 30 U/L (15-37); Bilirubin,Total 0.2 mg/dL (0.2-1.0); Blood Urea Nitrogen 11 mg/dL (7-18); Calcium 8.9 mg/dL (8.5-10.1); Carbon Dioxide 29 mmol/L (21.0-32.0); Chloride 103 mmol/L (98-107); Estimated Glomerular Filt Rate 75 ml/min (>60); Ferritin 326 ng/mL (8-388); GFR (African American) 91 ML/MIN (>60); Globulin 3.2 gm/dl (1.3-3.2); Glucose 102 mg/dL (74-106); Potassium 3.9 mmoL/L (3.5-5.1); Sodium 144 mmol/L (136-145); Total Protein,Serum 6.5 gm/dL (6.4-8.2)
[2018-04-04 12:00] LABS: C-Reactive Protein < 0.2 mg/L (0.0-0.9)
[2018-04-04 12:14] LABS: Erythrocyte Sedimentation Rate 17 mm/hr (0-20)
[2018-04-05 08:19] LABS: Iron 72 ug/dL (38-169); UIBC 212 ug/dL (111-343)
[2018-04-06 10:56] LABS: Iron Saturation 25 % (15-55); Vitamin B12 >2000 pg/mL (232-1245); Vitamin D 25 Hydroxy 32.7 ng/mL (30.0-100.0)
== END ==
PROVIDERS: Visit Provider Nurse Practitioner Acute Care
DX: M47.816 Spondylosis without myelopathy or radiculopathy, lumbar region (principal); K50.90 Crohn's disease, unspecified, without complications
CPT/HCPCS: 36415; 80053; 80305; 82607; 82652; 82728; 83540; 83550; 85025; 85651; 86140

== ENCOUNTER → 2018-04-04 10:23 | Outpatient (CLI) | payer MEDICARE, MEDICAID, SELFPAY | PROVIDERS: Visit Provider Emergency Medicine | DX: M47.816 Spondylosis without myelopathy or radiculopathy, lumbar region (principal) ==

== ENCOUNTER → 2018-04-04 10:35 | Outpatient (CLI) | payer MEDICARE, MEDICAID, SELFPAY ==
[2018-04-05 11:41] LABS: Amphetamine/Metha Screen,Urine Negative ng/mL (<1000); Barbiturates Screen,Urine Negative ng/mL (<200); Benzodiazepines Screen,Urine Negative ng/mL (<200); Cannabinoid Screen,Urine Negative ng/mL (<50); Cocaine Screen,Urine Negative ng/mL (<300); Methadone Screen,Urine Negative ng/mL (<300); Opiate Screen,Urine Negative ng/mL (<300); Phencyclidine Screen,Urine Negative ng/mL (<25)
== END ==
PROVIDERS: Visit Provider Emergency Medicine
DX: M54.9 Dorsalgia, unspecified (principal)
CPT/HCPCS: 80305

== ENCOUNTER → 2018-04-13 08:11 | Outpatient (CLI) | payer MEDICARE, MEDICAID, SELFPAY ==
[2018-04-17 22:10] LABS: HCV Genotype Charge YES; HCV RNA (International Units) 14900000 IU/mL (.); Hepatitis C Genotype 1a (.)
== END ==
PROVIDERS: Visit Provider Nurse Practitioner Acute Care
DX: K50.90 Crohn's disease, unspecified, without complications (principal)
CPT/HCPCS: 36415; 87522; 87902

== ENCOUNTER → 2018-04-15 10:13 | Outpatient (CLI) | payer MEDICARE, MEDICAID, SELFPAY ==
[2018-04-18 11:14] LABS: QuantiFERON-TB Gold Plus Negative (Negative)
== END ==
PROVIDERS: Visit Provider Nurse Practitioner Acute Care
DX: K50.90 Crohn's disease, unspecified, without complications (principal)
CPT/HCPCS: 36415; 86480

== ENCOUNTER → 2018-04-24 09:58 | Outpatient (CLI) | payer MEDICARE, MEDICAID, SELFPAY ==
[2018-04-24 11:23] LABS: INR 0.95 (0.9-1.1); Prothrombin Time 9.8 seconds (9.4-11.8)
[2018-04-24 13:45] LABS: Ferritin 293 ng/mL (8-388)
[2018-04-25 10:22] LABS: Iron 84 ug/dL (38-169); UIBC 220 ug/dL (111-343)
[2018-04-25 15:24] LABS: Angiotensin Converting Enzyme <15 U/L (14-82); Ceruloplasmin 29.8 mg/dL (16.0-31.0); Immunoglobulin A, Qn 174 mg/dL (61-437); Immunoglobulin G, Qn 925 mg/dL (700-1600)
[2018-04-26 04:12] LABS: Hep A Ab, IgM Negative (Negative); Hepatitis B Core Antibody IgM Negative (Negative); Hepatitis B Surface Antigen Negative (Negative)
[2018-04-26 17:13] LABS: Actin (Smooth Muscle) Antibody 6 Units (0-19); Deamidated Gliadin Abs, IgA 3 units (0-19); Deamidated Gliadin Abs, IgG 2 units (0-19); Endomysial IgA Antibody Negative (Negative); Immunoglobulin M, Qn 153 mg/dL (20-172); Iron Saturation 28 % (15-55); Liver-Kidney Microsomal Ab <1.0 Units (0.0-20.0); Mitochondrial (M2) Antibody <20.0 Units (0.0-20.0); Tissue Transglutaminase IgA Ab <2 U/mL (0-3); Tissue Transglutaminase IgG Ab <2 U/mL (0-5)
[2018-04-26 17:18] LABS: Hepatitis C Antibody >11.0 s/co ratio (0.0-0.9)
[2018-04-27 10:13] LABS: ALT (SGPT) P5P 39 IU/L (0-55); AST (SGOT) P5P 40 IU/L (0-40); Alpha 2-Macroglobulins, Qn 366 mg/dL (110-276); Apolipoprotein A-1 134 mg/dL (101-178); Bilirubin, Total 0.2 mg/dL (0.0-1.2); Cholesterol, Total 223 mg/dL (100-199); Fibrosis Score 0.52 (0.00-0.21); GGT 103 IU/L (0-65); Glucose 108 mg/dL (65-99); Haptoglobin 201 mg/dL (34-200); Steatosis Score 0.54 (0.00-0.30); Triglycerides 227 mg/dL (0-149)
[2018-04-27 12:32] LABS: Reticulin IgA Antibody Negative titer (Neg:<1:2.5)
[2018-04-29 12:19] LABS: Alpha-1-Antitrypsin 145 mg/dL (90-200)
[2018-06-11 13:50] LABS: Antinuclear Antibodies (ANA) Negative
== END ==
PROVIDERS: Visit Provider Nurse Practitioner Acute Care
DX: B18.2 Chronic viral hepatitis C (principal)
CPT/HCPCS: 36415; 80074; 81256; 82103; 82104; 82164; 82390; 82728; 82784; 83516; 83540; 83550; 85610; 86038; 86255; 86256; 86376

== ENCOUNTER → 2018-05-06 09:44 | Outpatient (CLI) | payer MEDICARE, MEDICAID, SELFPAY ==
--- NOTE | 2018-05-06 09:56 | US_ITS ---
US abdomen limited History:Abdominal pain, hepatitis Ordering Physician:Kerry Carpenter Patient Age: 67 years Comparison:None Findings: Pancreas:Unremarkable. No obvious mass or abnormal fluid collection. No ductal dilatation Liver:No focal liver lesions demonstrated. Homogeneous echogenicity. No intrahepatic biliary ductal dilatation evident. There is appropriate directional blood flow within a nondilated portal vein Right Kidney:Unremarkable. Normal size and echogenicity. No hydronephrosis Gallbladder:No shadowing gallstones, gallbladder wall thickening, pericholecystic fluid, or biliary dilatation. Common bile duct is 4 mm. There is some sludge noted within the gallbladder along with 2 small polyps along the anterior wall measuring approximately 2-3 mm Impression: 1. No shadowing stones. No gallbladder wall thickening pericholecystic fluid or biliary dilatation. 2. Small amount sludge noted with a couple gallbladder polyps 3. Unremarkable appearing liver
== END ==
PROVIDERS: PCP Emergency Medicine; Visit Provider Nurse Practitioner Acute Care
DX: B18.2 Chronic viral hepatitis C (principal)
CPT/HCPCS: 76705

== ENCOUNTER → 2018-05-20 10:25 | Outpatient (POV) | payer MEDICARE, MEDICAID, SELFPAY | PROVIDERS: Visit Provider Nurse Practitioner Acute Care | DX: Z00.00 Encounter for general adult medical examination without abnormal findings (principal) ==

== ENCOUNTER → 2018-05-21 09:00 | Outpatient (CLI) | payer MEDICARE, MEDICAID, SELFPAY ==
[2018-05-23 13:18] LABS: Occult Blood,Stool Negative (Negative)
== END ==
PROVIDERS: Visit Provider Nurse Practitioner Acute Care
DX: K50.90 Crohn's disease, unspecified, without complications (principal); B18.2 Chronic viral hepatitis C
CPT/HCPCS: 82272; G0328

== ENCOUNTER → 2018-05-22 09:00 | Outpatient (CLI) | payer MEDICARE, MEDICAID, SELFPAY ==
[2018-05-23 13:19] LABS: Occult Blood,Stool Negative (Negative)
== END ==
PROVIDERS: Visit Provider Nurse Practitioner Acute Care
DX: K50.90 Crohn's disease, unspecified, without complications (principal); B18.2 Chronic viral hepatitis C
CPT/HCPCS: 82272; G0328

== ENCOUNTER → 2018-05-23 10:29 | Outpatient (CLI) | payer MEDICARE, MEDICAID, SELFPAY ==
[2018-05-23 13:20] LABS: Occult Blood,Stool Negative (Negative)
== END ==
PROVIDERS: PCP Emergency Medicine; Visit Provider Nurse Practitioner Acute Care
DX: K50.90 Crohn's disease, unspecified, without complications (principal); B18.2 Chronic viral hepatitis C
CPT/HCPCS: 82272; G0328

== ENCOUNTER → 2018-06-10 10:14 | Outpatient (POV) | payer MEDICARE, MEDICAID, SELFPAY | PROVIDERS: Visit Provider Nurse Practitioner Acute Care | DX: Z00.00 Encounter for general adult medical examination without abnormal findings (principal) ==

== ENCOUNTER → 2018-07-05 11:26 | Outpatient (CLI) | payer MEDICARE, MEDICAID, SELFPAY ==
[2018-07-05 11:50] LABS: Basophils # 0.1 K/mm3 (0-0.2); Eosinophils # 0.1 K/mm3 (0.0-0.4); Eosinophils % 1.7 % (0.1-12.0); Hematocrit 48.2 % (42.0-52.0); Hemoglobin 15.4 g/dL (14.1-18.0); Lymphocytes # 2.5 K/mm3 (0.7-4.5); Lymphocytes % 41.2 % (10-50); Mean Corpuscular HGB Conc 31.9 g/dL (31.8-35.4); Mean Corpuscular Hemoglobin 30.2 pg (27.0-31.2); Mean Corpuscular Volume 94.5 fl (80-94); Monocytes # 0.4 K/mm3 (0.1-1.0); Monocytes % 6.7 % (1.7-9.3); Neutrophils % 49.3 % (37.0-80.0); Platelet Count 380 K/mm3 (142-424); Red Cell Distribution Width 13.6 % (11.5-17.5); White Blood Count 6.1 K/mm3 (4.8-10.8)
[2018-07-05 14:33] LABS: Alanine Aminotransferase 21 U/L (12-78); Albumin Level 4.7 gm/dL (3.4-5.0); Albumin/Globulin Ratio 1.2 (1.1-1.8); Alkaline Phosphatase 91 U/L (46-116); Anion Gap 16.4 mEq/L (5-15); Aspartate Amino Transferase 14 U/L (15-37); Bilirubin,Total 0.3 mg/dL (0.2-1.0); Blood Urea Nitrogen 13 mg/dL (7-18); Carbon Dioxide 28 mmol/L (21.0-32.0); Chloride 104 mmol/L (98-107); Creatinine,Serum 1.12 mg/dL (0.70-1.30); Estimated Glomerular Filt Rate 66 ml/min (>60); GFR (African American) 80 ML/MIN (>60); Globulin 3.8 gm/dl (1.3-3.2); Glucose 110 mg/dL (74-106); Potassium 4.4 mmoL/L (3.5-5.1); Sodium 144 mmol/L (136-145); Total Protein,Serum 8.5 gm/dL (6.4-8.2)
[2018-07-07 18:28] LABS: HCV Genotype Charge YES
== END ==
PROVIDERS: PCP Emergency Medicine; Visit Provider Nurse Practitioner Acute Care
DX: B18.2 Chronic viral hepatitis C (principal)
CPT/HCPCS: 36415; 80053; 85025; 87522; 87902

== ENCOUNTER → 2018-07-30 09:23 | Outpatient (POV) | payer MEDICARE, MEDICAID, SELFPAY ==
[2018-07-30 09:46] VITALS: BP 153/98; PULSE 100; RESP 18; O2SAT 99; BMI 29.0
--- NOTE | 2018-07-30 10:01 | HMH.PAINSOAP ---
[facility] Pain Management SOAP Note Subjective:: She is a pleasant 67-year-old white male who presents today for discussion in regards to intrathecal pain pump therapy. He is interested in pursuing this. Patient states his physician recommended him being on Suboxone. Patient is currently not on any narcotic medications. Patient's last urine drug screen with his primary care was negative for every substance. Patient and I had a discussion in regards to the therapy. I do believe that this therapy would help him become more functional. He states that his pain is a 7 out of 10. ROS General: no recent weight change, no fever, no sleep disturbances Respiratory: no cough, no shortness of air, no recurring pulmonary infections Cardiovascular/Peripheral Vascular: No chest pain, No palpitations, no edema, no shortness of breath. Gastrointestinal: no incontinence, normal bowel movements reported Genitourinary: no incontinence Musculoskeletal: Back pain, leg pain Psychiatric: normal mood/ affect Neurological: [denies weakness in extremities], [denies balance issues] Objective:: Physical Exam General: Alert and oriented x3, no acute distress, pleasant and cooperative, [on room air] Lungs: Resps E/U, Symmetrical chest expansion, Eyes: PERRL Musculoskeletal: Flexion and extension of lumbar spine somewhat guarded secondary to pain, deep tendon reflexes normal, strength in upper and lower extremities [5/5], [abnormal gait noted] Neurological: speech clear, salvage winder equal, no gross sensory deficits Assessment:: Postlaminectomy syndrome lumbar spine lumbar radiculopathy Plan:: We will schedule the patient for psychological evaluation to determine if he is a good candidate for intrathecal therapy. I will follow-up with him after his psychological evaluation and reassess his symptoms at that time. He has been instructed to call the office if he has any issues prior to his next appointment. Dr. Camilo has reviewed this note and agrees with this plan of care. This note was dictated using voice recognition software and may contain errors or omissions
--- NOTE | 2018-07-30 10:06 | P.CONS_ITS ---
[facility] Pain Management SOAP Note Subjective:: She is a pleasant 67-year-old white male who presents today for discussion in regards to intrathecal pain pump therapy. He is interested in pursuing this. Patient states his physician recommended him being on Suboxone. Patient is currently not on any narcotic medications. Patient's last urine drug screen with his primary care was negative for every substance. Patient and I had a discussion in regards to the therapy. I do believe that this therapy would help him become more functional. He states that his pain is a 7 out of 10. ROS General: no recent weight change, no fever, no sleep disturbances Respiratory: no cough, no shortness of air, no recurring pulmonary infections Cardiovascular/Peripheral Vascular: No chest pain, No palpitations, no edema, no shortness of breath. Gastrointestinal: no incontinence, normal bowel movements reported Genitourinary: no incontinence Musculoskeletal: Back pain, leg pain Psychiatric: normal mood/ affect Neurological: [denies weakness in extremities], [denies balance issues] Objective:: Physical Exam General: Alert and oriented x3, no acute distress, pleasant and cooperative, [on room air] Lungs: Resps E/U, Symmetrical chest expansion, Eyes: PERRL Musculoskeletal: Flexion and extension of lumbar spine somewhat guarded secondary to pain, deep tendon reflexes normal, strength in upper and lower extremities [5/5], [abnormal gait noted] Neurological: speech clear, mica parts sprayer equal, no gross sensory deficits Assessment:: Postlaminectomy syndrome lumbar spine lumbar radiculopathy Plan:: We will schedule the patient for psychological evaluation to determine if he is a good candidate for intrathecal therapy. I will follow-up with him after his psychological evaluation and reassess his symptoms at that time. He has been instructed to call the office if he has any issues prior to his next appointment. Dr. Camilo has reviewed this note and agrees with this plan of care. This note was dictated using voice recognition software and may contain errors or omissions
== END ==
PROVIDERS: PCP Emergency Medicine; Visit Provider Clinical Nurse Specialist Family Health
DX: M96.1 Postlaminectomy syndrome, not elsewhere classified (principal); M54.16 Radiculopathy, lumbar region
CPT/HCPCS: 99212

== ENCOUNTER → 2018-08-05 11:14 | Outpatient (CLI) | payer MEDICARE, MEDICAID, SELFPAY ==
[2018-08-05 12:05] LABS: Basophils # 0.1 K/mm3 (0-0.2); Basophils % 0.6 % (0.1-2.0); Eosinophils # 0.2 K/mm3 (0.0-0.4); Eosinophils % 1.9 % (0.1-12.0); Hematocrit 46.1 % (42.0-52.0); Hemoglobin 15.6 g/dL (14.1-18.0); Lymphocytes # 2.8 K/mm3 (0.7-4.5); Lymphocytes % 29.8 % (10-50); Mean Corpuscular HGB Conc 33.8 g/dL (31.8-35.4); Mean Corpuscular Hemoglobin 30.7 pg (27.0-31.2); Mean Corpuscular Volume 90.7 fl (80-94); Monocytes # 0.5 K/mm3 (0.1-1.0); Monocytes % 5.1 % (1.7-9.3); Neutrophils # 5.9 K/mm3 (1.8-7.8); Neutrophils % 62.5 % (37.0-80.0); Platelet Count 326 K/mm3 (142-424); Red Blood Count 5.08 M/mm3 (4.60-6.20); Red Cell Distribution Width 13.4 % (11.5-17.5); White Blood Count 9.4 K/mm3 (4.8-10.8)
[2018-08-05 14:28] LABS: Alanine Aminotransferase 23 U/L (12-78); Albumin Level 4.6 gm/dL (3.4-5.0); Albumin/Globulin Ratio 1.3 (1.1-1.8); Alkaline Phosphatase 83 U/L (46-116); Anion Gap 13.6 mEq/L (5-15); Aspartate Amino Transferase 17 U/L (15-37); Bilirubin,Total 0.3 mg/dL (0.2-1.0); Blood Urea Nitrogen 13 mg/dL (7-18); Calcium 9.9 mg/dL (8.5-10.1); Carbon Dioxide 28 mmol/L (21.0-32.0); Chloride 102 mmol/L (98-107); Creatinine,Serum 0.93 mg/dL (0.70-1.30); Estimated Glomerular Filt Rate 82 ml/min (>60); GFR (African American) 99 ML/MIN (>60); Globulin 3.6 gm/dl (1.3-3.2); Glucose 115 mg/dL (74-106); Potassium 4.6 mmoL/L (3.5-5.1); Sodium 139 mmol/L (136-145); Total Protein,Serum 8.2 gm/dL (6.4-8.2)
[2018-08-07 11:12] LABS: HCV Genotype Charge YES
== END ==
PROVIDERS: Visit Provider Nurse Practitioner Acute Care
DX: B18.2 Chronic viral hepatitis C (principal)
CPT/HCPCS: 36415; 80053; 85025; 87522; 87902

== ENCOUNTER → 2018-09-06 09:18 | Outpatient (CLI) | payer MEDICARE, MEDICAID, SELFPAY ==
[2018-09-06 09:37] LABS: Basophils % 0.6 % (0.1-2.0); Eosinophils # 0.2 K/mm3 (0.0-0.4); Eosinophils % 3.6 % (0.1-12.0); Hematocrit 36.9 % (42.0-52.0); Hemoglobin 12.5 g/dL (14.1-18.0); Lymphocytes # 2.8 K/mm3 (0.7-4.5); Lymphocytes % 44.7 % (10-50); Mean Corpuscular HGB Conc 33.8 g/dL (31.8-35.4); Mean Corpuscular Hemoglobin 30.1 pg (27.0-31.2); Mean Platelet Volume 7.5 fl (7.4-10.4); Monocytes # 0.4 K/mm3 (0.1-1.0); Monocytes % 6.5 % (1.7-9.3); Neutrophils # 2.8 K/mm3 (1.8-7.8); Neutrophils % 44.5 % (37.0-80.0); Platelet Count 358 K/mm3 (142-424); Red Blood Count 4.14 M/mm3 (4.60-6.20); Red Cell Distribution Width 13.3 % (11.5-17.5); White Blood Count 6.3 K/mm3 (4.8-10.8)
[2018-09-06 11:36] LABS: Alanine Aminotransferase 20 U/L (12-78); Albumin Level 3.7 gm/dL (3.4-5.0); Albumin/Globulin Ratio 1.2 (1.1-1.8); Alkaline Phosphatase 71 U/L (46-116); Anion Gap 15.1 mEq/L (5-15); Aspartate Amino Transferase 15 U/L (15-37); Bilirubin,Total 0.2 mg/dL (0.2-1.0); Blood Urea Nitrogen 17 mg/dL (7-18); Calcium 8.8 mg/dL (8.5-10.1); Carbon Dioxide 27 mmol/L (21.0-32.0); Chloride 104 mmol/L (98-107); Creatinine,Serum 1.08 mg/dL (0.70-1.30); Estimated Glomerular Filt Rate 69 ml/min (>60); GFR (African American) 83 ML/MIN (>60); Globulin 3.1 gm/dl (1.3-3.2); Glucose 100 mg/dL (74-106); Potassium 4.1 mmoL/L (3.5-5.1); Sodium 142 mmol/L (136-145); Total Protein,Serum 6.8 gm/dL (6.4-8.2)
== END ==
PROVIDERS: Visit Provider Nurse Practitioner Acute Care
DX: B18.2 Chronic viral hepatitis C (principal)
CPT/HCPCS: 36415; 80053; 85025

== ENCOUNTER → 2018-11-19 10:54 | Outpatient (CLI) | payer MEDICARE, MEDICAID, SELFPAY ==
[2018-11-20 10:04] LABS: PSA, Free 0.44 ng/mL; Prostate Specific Ag 1.4 ng/mL (0.0-4.0)
== END ==
PROVIDERS: Visit Provider Urology
DX: N52.9 Male erectile dysfunction, unspecified (principal); N41.1 Chronic prostatitis; Z80.42 Family history of malignant neoplasm of prostate
CPT/HCPCS: 36415; 84153; 84154

== ENCOUNTER → 2018-11-26 12:32 | Outpatient (CLI) | payer MEDICARE, MEDICAID, SELFPAY ==
[2018-11-29 09:44] LABS: Testosterone, Total, LC/MS 458.5 ng/dL (264.0-916.0); Testosterone,Free 4.4 pg/mL (6.6-18.1)
== END ==
PROVIDERS: Visit Provider Urology
DX: N52.9 Male erectile dysfunction, unspecified (principal)
CPT/HCPCS: 36415; 84402; 84403

== ENCOUNTER → 2019-02-26 12:05 | Outpatient (CLI) | payer MEDICARE, MEDICAID, SELFPAY ==
[2019-02-26 13:00] LABS: Hemoglobin A1C 5.9 % (0.0-7.0)
== END ==
PROVIDERS: Visit Provider Emergency Medicine
DX: R73.9 Hyperglycemia, unspecified (principal)
CPT/HCPCS: 36415; 83036

== ENCOUNTER 2019-07-31 15:50 | Emergency (ER) | payer MEDICARE, MEDICAID, SELFPAY ==
[2019-07-31 16:13] VITALS: BP 181/103; PULSE 91; RESP 22; TEMP 36.6; O2SAT 99; BMI 23.6
[2019-07-31 16:19] LABS: Apearance,Urine Clear (Clear); Bilirubin,Urine Negative (Negative); Blood, Urine Negative (Negative); Color,Urine Yellow (Yellow); Glucose,Urine (UA) Negative (Negative); Ketones,Urine Negative (Negative); PH,Urine 5.5 (5.0-8.5); Protein,Urine Trace (Negative); UTC Leukocyte Esterase,Urine Negative (Negative); UTC Nitrate,Urine Negative (Negative); Urobilinogen,Urine 0.2 EU/dl (0.2)
--- NOTE | 2019-07-31 16:20 | XR_ITS ---
PROCEDURE: XR CHEST 2V CLINICAL HISTORY: COUGH Cough shortness of air, smoker COMPARISON: CXR1VP XR chest portable from 03/22/2018 CXR2V XR chest 2V from 03/23/2018 CXR1VP XR chest portable from 06/17/2018 FINDINGS: The cardiomediastinal silhouette and pulmonary vascularity are within normal limits. The lungs are clear without infiltrates, suspicious nodules, or pleural effusions. No acute bony abnormalities. IMPRESSION: No acute findings. Dictated by: Miguelito Peña MD 07/31/2019 16:54 Electronically signed by Miguelito Peña MD in [place] 07/31/2019 16:54
--- NOTE | 2019-07-31 16:20 | XR_ITS ---
PROCEDURE: XR LUMBAR SPINE 2-3V CLINICAL INDICATION: PAIN Low back pain COMPARISON: [id number] XR lumbar spine min 4V from 04/10/2017 FINDINGS: There is mild lumbar curvature convex left. Prior posterior fusion with inter pedicular screws and connecting rods at L5 and S1 with disc spacer device. Degenerative disc disease from T12-S1. This is most severe at L3-L4 L4-5 and L5-S1. There is 6 mm retrolisthesis of L3 on L4. There is prominent anterior osteophytes at L3-L4 and L5 and L1-L2 IMPRESSION: Postsurgical and degenerative changes. No acute finding. The degenerative disc disease at L3-L4 has slightly progressed compared to the previous exam Dictated by: Miguelito Peña MD 07/31/2019 16:56 Electronically signed by Miguelito Peña MD in [place] 07/31/2019 16:56
--- NOTE | 2019-07-31 16:21 | HMH.EDUTC ---
[facility] [place] Clinical Impression: Back pain Qualifiers: Back pain location: low back pain Chronicity: unspecified Back pain laterality: right Sciatica presence: without sciatica Qualified Code(s): M54.5 - Low back pain Disposition: Home, Self-Care Condition on Discharge: Good Instructions: Low Back Pain, DI for Low Back Pain, Cyclobenzaprine Additional Instructions: *Ibuprofen kade 6 hours with meal as needed for pain/inflammation *Remember you had a Toradol shot in the clinic today, which is similar to Motrin *Not additional anti-inflammatory like motrin, aleve, advil with the above amount of ibuprofen. You can still take Tylenol every 4 hours as needed if you need something else for pain *Ice 20 minutes every 2 hours for the first 48 hours after the initial injury followed by moist heat every 20 minutes 3-4 times a day to affected area *Muscle relaxer every 8 hours as needed for muscle spasms but remember, it WILL cause drowsiness You cannot take it and drive, operate machinery or care for small children. *Keep this area active, no movement leads to more stiffness, However take it easy and avoid heavy lifting pushing or pulling *Follow up with you family doctor if no improvement for further treatment in the next 48-72 hours Return if needed Straight to ER if any life threatening symptoms Prescriptions: Cyclobenzaprine HCl [Flexeril 10mg tablet] 10 mg PO TID PRN #15 tab PRN Reason: Muscle Spasm Transmission Status: Sent to [facility] Referrals: Liang Jones MD [Primary Care Provider] - As needed Time of Disposition: 17:06 Medical Decision Making - Kevin Inquiry Pt receiving controlled substance: No Kevin was queried for this patient: No Vital Signs: 07/31/19 16:13 Temperature 97.9 F Temperature Source Oral Pulse Rate [Right Brachial] 91 H Respiratory Rate 22 Blood Pressure [Right Arm] 181/103 H Blood Pressure Mean [Right Arm] 129 Blood Pressure Source [Right Arm] Automatic Cuff Blood Pressure Position [Right Arm] Sitting 02 Sat by Pulse Oximetry 99 Oxygen Delivery Method Room Air - Lab Data Lab results reviewed: Yes: I reviewed the patient's lab results. Lab Results 07/31/19 16:16: Urine Color Yellow, Urine Appearance Clear, Urine pH 5.5, Ur Specific Meally 1.030, Urine Protein Trace, Urine Glucose (UA) Negative, Urine Ketones Negative, Urine Blood Negative, Urine Nitrate Negative, Urine Bilirubin Negative, Urine Urobilinogen 0.2, Ur Leukocyte Esterase Negative - Radiology Data #1 Image(s): Chest Image Reviewed: Yes I reviewed the patient's radiology image w/the ED provider Preliminary Findings: Normal/NAD #2 Image(s): L-Spine Image Reviewed: Yes I reviewed the patient's radiology image w/the ED provider Preliminary Findings: No Fracture Seen Post surgical and degenerative changes, no acute [facility] [place] - General Stated complaint: Kidney infection Time Seen by Provider: 07/31/19 16:21 Mode of Arrival: Ambulatory Source of Information: Patient Limitations: No Limitations Description of Symptoms (Recalled from Triage Doc. by RN): PATIENT C/O RIGHT SIDE/FLANK PAIN X 3 DAYS HEENT Symptoms (Recalled from RN notes): No Resp Symptoms (Recalled from RN notes): No Skin Symptoms (Recalled from RN notes): No MS Symptoms (Recalled from RN notes): No Functional Status (Recalled from RN notes): WNL - History of Present Illness Provider Complaint: Patient reports achy like pain in right side of lower back area States that it is tender when touched and hurts worse with movement States that he wasnt sure if he may have had a kidney infection or if he may have pulled something States that also has been having a cough at times but usually occurs after smoking. Denies known injury. Denies radiation of pain - Related Data Home Medications Medication Instructions Recorded Confirmed Gabapentin 600 mg PO TID 07/31/19 07/31/19 Pantoprazole Sodium [Protonix 40mg 40 mg PO DAILY 07/09
[2019-07-31 17:05] VITALS: BP 141/87; PULSE 70; RESP 22; TEMP 36.6; O2SAT 99
[2019-07-31 17:08] VITALS: BP 141/87; PULSE 70
== END 2019-07-31 17:10 | disposition home or self-care (01) ==
PROVIDERS: Emergency Provider Nurse Practitioner; PCP Emergency Medicine
DX: M54.5 Low back pain (principal); I10 Essential (primary) hypertension; K21.9 Gastro-esophageal reflux disease without esophagitis; E78.5 Hyperlipidemia, unspecified; J44.9 Chronic obstructive pulmonary disease, unspecified; F17.210 Nicotine dependence, cigarettes, uncomplicated
CPT/HCPCS: G0463; 71046; 72100; 81003; 99202

== ENCOUNTER 2019-10-07 15:22 | Emergency (ER) | payer MEDICARE, MEDICAID, SELFPAY ==
[2019-10-07 15:23] VITALS: BP 214/114; PULSE 86; RESP 22; TEMP 36.9; O2SAT 100; BMI 22.1
--- NOTE | 2019-10-07 15:32 | CT_ITS ---
PROCEDURE: CT ABDOMEN PELVIS WO CON CLINICAL INDICATION: R/O KIDNEY STONES Left flank pain COMPARISON: ABDPELWO CT abdomen pelvis wo con from 03/22/2018 TECHNIQUE: Axial images obtained with sagittal and coronal reformats. All CT scans at the facility use one or more dose reduction, viz: automated exposure control, ma/kV adjustment per patient size (including targeted exams where dose is matched to indication, i.e. head), or iterative reconstruction technique. FINDINGS: LOWER THORAX: Mild atelectatic or fibrotic changes are present in the right lung base. Coronary artery calcifications noted ABDOMEN & PELVIS: There is an indeterminate 11 mm hypodensity in the hepatic dome incompletely evaluated on this unenhanced exam. The spleen, adrenal glands, and pancreas have an unremarkable unenhanced appearance. No renal or ureteral calculi. No hydronephrosis. There is mild nonspecific thickening of the gastric antrum and duodenal bulb. No evidence of intestinal obstruction or free air or appendicitis. No evidence of diverticulitis. No pelvic mass or abnormal fluid collection. There are some central coarse prostate calcifications. There is some mild thickening of the rectosigmoid region which is nonspecific and could be due to nondistention. There are degenerative changes in the lumbar spine with prior fusion of L5 and S1 IMPRESSION: 1. No renal or ureteral calculi. 2. Mild thickening at the junction of the sigmoid colon and rectum which could be due to nondistention versus mild colitis/proctitis 3. Indeterminate chin mm hepatic lesion which may be better evaluated with nonemergent CT or MRI with hemangioma protocol Dictated by: Miguelito Peña MD 10/07/2019 16:25 Electronically signed by Miguelito Peña MD in [place] 10/07/2019 16:25
[2019-10-07 15:46] LABS: Basophils # 0.1 K/mm3 (0-0.2); Basophils % 0.6 % (0.1-2.0); Eosinophils # 0.2 K/mm3 (0.0-0.4); Eosinophils % 1.4 % (0.1-12.0); Hematocrit 44.6 % (42.0-52.0); Lymphocytes # 4.2 K/mm3 (0.7-4.5); Mean Corpuscular HGB Conc 33.5 g/dL (31.8-35.4); Mean Corpuscular Hemoglobin 30.3 pg (27.0-31.2); Mean Corpuscular Volume 90.3 fl (80-94); Mean Platelet Volume 7.2 fl (7.4-10.4); Monocytes # 0.7 K/mm3 (0.1-1.0); Monocytes % 5.3 % (1.7-9.3); Neutrophils # 7.2 K/mm3 (1.8-7.8); Neutrophils % 58.7 % (37.0-80.0); Platelet Count 435 K/mm3 (142-424); Red Blood Count 4.94 M/mm3 (4.60-6.20); Red Cell Distribution Width 14.8 % (11.5-17.5); White Blood Count 12.2 K/mm3 (4.8-10.8)
[2019-10-07 15:53] LABS: Chloride 105 mmol/L (98-107); Potassium 3.9 mmoL/L (3.5-5.1); Sodium 141 mmol/L (136-145)
[2019-10-07 15:56] LABS: Alanine Aminotransferase 21 U/L (12-78); Albumin Level 4.5 g/dl (3.5-5.0); Albumin/Globulin Ratio 1.3 (1.1-1.8); Alkaline Phosphatase 77 U/L (38-126); Amylase 97 U/L (30-110); Anion Gap 9.9 mEq/L (5-15); Aspartate Amino Transferase 23 U/L (17-59); Bilirubin,Total 0.3 mg/dl (0.2-1.3); Blood Urea Nitrogen 14 mg/dl (9-20); Calcium 10.2 mg/dl (8.4-10.2); Carbon Dioxide 30 mmol/L (22.0-30.0); Creatinine Clearance Estimated 70 mL/min (50-200); Estimated Glomerular Filt Rate 84 ml/min (>60); GFR (African American) 102 ML/MIN (>60); Globulin 3.5 g/dL (1.3-3.2); Glucose 79 mg/dl (74-100); Lipase 87 U/L (23-300)
[2019-10-07 16:10] LABS: Microscopic, Urine URINE MICROSCOPIC (MICROSCOPIC)
[2019-10-07 16:11] LABS: Appearance,Urine CLEAR (Clear); Bilirubin,Urine Negative (Negative); Blood, Urine Negative (Negative); Color,Urine YELLOW (Yellow); Glucose,Urine (UA) Negative (Negative); Ketones,Urine Negative (Negative); Leukocyte Esterase,Urine Negative (Negative); Nitrate,Urine Negative (Negative); PH,Urine 5.5 (5.0-8.5); Protein,Urine Negative (Negative); Specific Gravity, Urine >= 1.030 (1.005-1.030); Urobilinogen,Urine 0.2 EU/dl (0.2)
[2019-10-07 16:24] LABS: Bacteria,Urine Trace /lpf; Squamous Epithelial Cell,Urine Occasional #/hpf (0-5)
[2019-10-07 17:23] VITALS: BP 163/95; PULSE 76; RESP 20; O2SAT 98
--- NOTE | 2019-10-07 18:05 | HMH.EDGENADL ---
ED Disposition Clinical Impression: Colitis Disposition: Home, Self-Care Condition on Discharge: Good Instructions: DI for Acute Pain -- Adult Prescriptions: metroNIDAZOLE [Flagyl 500mg Tablet] 500 mg PO TID 10 Days #30 tab Transmission Status: Pending to [facility] metroNIDAZOLE [Flagyl 500mg Tablet] 500 mg PO TID 10 Days #30 tab Transmission Status: Pending to [facility] Promethazine HCl 50 mg PO TID 6 Days #20 tab Transmission Status: Pending to [facility] Referrals: Liang Jones MD [Primary Care Provider] - - Critical Care Critical Care Time: No Attestation: On 10/07/19, the high probability of a clinically significant, sudden or life threatening deterioration of the following system(s) required my full and direct attention, intervention and personal management. The time I documented below is in addition to time spent performing reported procedures but includes the following listed in this critical care notation. Medical Decision Making - Medical Records Medical records reviewed: Yes: I reviewed the patient's medical records. - Kevin Inquiry Pt receiving controlled substance: No Vital Signs: 10/07/19 15:23 10/07/19 17:23 Temperature 98.5 F Temperature Source Oral Pulse Rate [Right Radial] 86 76 Respiratory Rate 22 20 Blood Pressure [Right Arm] 214/114 H 163/95 H Blood Pressure Mean [Right Arm] 147 117 Blood Pressure Source [Right Arm] Automatic Cuff Blood Pressure Position [Right Arm] Sitting Sitting 02 Sat by Pulse Oximetry 100 98 Oxygen Delivery Method Room Air Room Air - Lab Data Lab results reviewed: Yes: I reviewed the patient's lab results. Lab Results 10/07/19 15:10: WBC 12.2 H, RBC 4.94, Hgb 15.0, Hct 44.6, MCV 90.3, MCH 30.3, MCHC 33.5, RDW 14.8, Plt Count 435 H, MPV 7.2 L, Neut % (Auto) 58.7, Lymph % (Auto) 34.0, [place] % (Auto) 5.3, Eos % (Auto) 1.4, Baso % (Auto) 0.6, Neut # (Auto) 7.2, Lymph # (Auto) 4.2, [place] # (Auto) 0.7, Eos # (Auto) 0.2, Baso # (Auto) 0.1 10/07/19 15:10: Sodium 141, Potassium 3.9, Chloride 105, Carbon Dioxide 30, Anion Gap 9.9, BUN 14, Creatinine 0.90, Estimated Creat Clear 70, Estimated GFR 84, Est GFR ( Amer) 102, Glucose 79, Calcium 10.2, Total Bilirubin 0.3, AST 23, ALT 21, Alkaline Phosphatase 77, Total Protein 8.0, Albumin 4.5, Globulin 3.5 H, Albumin/Globulin Ratio 1.3, Amylase 97, Lipase 87 10/07/19 16:00: Urine Color Yellow, Urine Appearance Clear, Urine pH 5.5, Ur Specific [place] >= 1.030, Urine Protein Negative, Urine Glucose (UA) Negative, Urine Ketones Negative, Urine Blood Negative, Urine Nitrate Negative, Urine Bilirubin Negative, Urine Urobilinogen 0.2, Ur Leukocyte Esterase Negative, Urine WBC 3-5, Ur Squamous Epith Cells Occasional, Urine Bacteria Trace Result diagrams: 10/07/19 15:10 10/07/19 15:10 Orders (Tests/Meds): ED MEDICATIONS Discontinued Medications Generic Name Dose Route Start Last Admin Trade Name Freq PRN Reason Stop Dose Admin Hydromorphone HCl 2 mg 10/07/19 16:50 10/07/19 16:58 Dilaudid 2mg/Ml Syringe IV 10/07/19 16:51 2 mg ONCE ONE Administration Sodium Chloride 1,000 mls @ 999 mls/hr 10/07/19 15:45 10/07/19 15:38 Sod Chlor 0.9% 1000ml Bag IV 10/07/19 16:45 999 mls/hr .Q1H1M TAYLA Administration Ketorolac Tromethamine 30 mg 10/07/19 15:32 10/07/19 15:38 Toradol 30mg/Ml Vial IV 10/07/19 15:33 30 mg ONCE ONE Administration Ondansetron HCl 4 mg 10/07/19 15:32 10/07/19 15:38 Zofran 4mg/2ml Vial IV 10/07/19 15:33 4 mg ONCE ONE Administration - CT Data CT Scan: Abdomen, Pelvis Time Received: 18:00 Preliminary Findings: Abnormal (Mild to moderate colitis no kidney stones) General Adult HPI - General Chief complaint: PAIN Stated complaint: LT FLANK PAIN Time Seen by Provider: 10/07/19 18:05 Mode of Arrival: EMS Limitations: No Limitations Description of Symptoms (Recalled from ER Triage Doc. by RN): PT C/O WORSENI
[2019-10-07 18:20] VITALS: BP 159/95; PULSE 77; RESP 20; TEMP 36.9; O2SAT 98
== END 2019-10-07 18:20 | disposition home or self-care (01) ==
PROVIDERS: Emergency Provider Family Medicine; PCP Emergency Medicine
DX: K52.9 Noninfective gastroenteritis and colitis, unspecified (principal); Z87.442 Personal history of urinary calculi; I10 Essential (primary) hypertension; E78.5 Hyperlipidemia, unspecified; J44.9 Chronic obstructive pulmonary disease, unspecified; K21.9 Gastro-esophageal reflux disease without esophagitis; F17.210 Nicotine dependence, cigarettes, uncomplicated; Z79.899 Other long term (current) drug therapy
CPT/HCPCS: 74176; 80053; 81001; 82150; 83690; 85025; 96365; 96375; 99284; J2405

== ENCOUNTER → 2019-10-22 11:45 | Outpatient (CLI) | payer MEDICARE, MEDICAID, SELFPAY ==
[2019-10-22 12:26] LABS: Basophils # 0.1 K/mm3 (0-0.2); Basophils % 0.8 % (0.1-2.0); Eosinophils # 0.1 K/mm3 (0.0-0.4); Eosinophils % 1.5 % (0.1-12.0); Hematocrit 41.8 % (42.0-52.0); Lymphocytes % 30.3 % (10-50); Mean Corpuscular HGB Conc 33.4 g/dL (31.8-35.4); Mean Corpuscular Hemoglobin 30.2 pg (27.0-31.2); Mean Corpuscular Volume 90.4 fl (80-94); Mean Platelet Volume 7.4 fl (7.4-10.4); Monocytes # 0.5 K/mm3 (0.1-1.0); Monocytes % 5.3 % (1.7-9.3); Neutrophils # 6.1 K/mm3 (1.8-7.8); Neutrophils % 62.1 % (37.0-80.0); Platelet Count 392 K/mm3 (142-424); Red Blood Count 4.62 M/mm3 (4.60-6.20); Red Cell Distribution Width 15.2 % (11.5-17.5); White Blood Count 9.8 K/mm3 (4.8-10.8)
[2019-10-22 13:06] LABS: Erythrocyte Sedimentation Rate 20 mm/hr (0-20)
[2019-10-22 13:15] LABS: Chloride 105 mmol/L (98-107); Potassium 4.2 mmoL/L (3.5-5.1); Sodium 142 mmol/L (136-145)
[2019-10-22 13:17] LABS: Blood Urea Nitrogen 17 mg/dl (9-20); Estimated Glomerular Filt Rate 61 ml/min (>60); GFR (African American) 73 ML/MIN (>60)
[2019-10-22 13:18] LABS: Alanine Aminotransferase 13 U/L (12-78); Albumin Level 4.4 g/dl (3.5-5.0); Albumin/Globulin Ratio 1.5 (1.1-1.8); Alkaline Phosphatase 63 U/L (38-126); Anion Gap 17.2 mEq/L (5-15); Aspartate Amino Transferase 25 U/L (17-59); Bilirubin,Total 0.5 mg/dl (0.2-1.3); Calcium 9.6 mg/dl (8.4-10.2); Carbon Dioxide 24 mmol/L (22.0-30.0); Glucose 102 mg/dl (74-100); Iron 64 ug/dL (49-181); Total Protein,Serum 7.4 g/dl (6.3-8.2)
[2019-10-22 13:24] LABS: C-Reactive Protein 4.9 mg/L (0-4)
[2019-10-22 13:27] LABS: Total Iron Binding Capacity 350 ug/dL (261-462)
[2019-10-22 13:35] LABS: 25-OH Vitamin D, Total 42.5 ng/mL (30-100)
[2019-10-22 13:53] LABS: Ferritin 18.9 ng/ml (17.9-464)
[2019-10-23 12:35] LABS: Vitamin B12 889 pg/mL (232-1245)
== END ==
PROVIDERS: Visit Provider Nurse Practitioner Family
DX: B18.2 Chronic viral hepatitis C (principal); R74.8 Abnormal levels of other serum enzymes; N28.9 Disorder of kidney and ureter, unspecified
CPT/HCPCS: 36415; 80053; 82306; 82607; 82728; 83540; 83550; 85025; 85651; 86140

== ENCOUNTER → 2020-03-01 08:16 | Outpatient (POV) | payer MEDICARE, MEDICAID, SELFPAY | PROVIDERS: Visit Provider Nurse Practitioner Family | DX: Z00.00 Encounter for general adult medical examination without abnormal findings (principal) ==

== ENCOUNTER → 2020-03-10 11:43 | Outpatient (CLI) | payer MEDICARE, MEDICAID, SELFPAY ==
[2020-03-11 09:48] LABS: Covid-19 Nasal PCR Sendout Lex NOT DETECTED
== END ==
PROVIDERS: Visit Provider Nurse Practitioner Family
DX: Z03.818 Encounter for observation for suspected exposure to other biological agents ruled out (principal); K50.90 Crohn's disease, unspecified, without complications; B18.2 Chronic viral hepatitis C
CPT/HCPCS: U0004

== ENCOUNTER 2020-03-14 12:41 | Emergency (ER) | payer MEDICARE, MEDICAID, SELFPAY ==
[2020-03-14 12:49] VITALS: BP 186/102; PULSE 107; RESP 20; TEMP 36.8; O2SAT 97; BMI 25.1
--- NOTE | 2020-03-14 12:55 | XR_ITS ---
PROCEDURE: XR RIBS LT MIN 3V W CXR1V CLINICAL INDICATION: fall Posttraumatic pain, left lateral rib pain following injury are COMPARISON: CR CXR2V XR chest 2V from 03/23/2018 CR CXR1VP XR chest portable from 06/17/2018 CR XR CHEST 2V from 07/31/2019 FINDINGS: Multiple views of the left ribs show no obvious fracture. No lytic or blastic change. Consider follow-up in 7-[address] with 3D reformats if pain persists Frontal view of the chest shows no acute finding There are degenerative changes in the lumbar spine and postsurgical changes at the lumbosacral junction IMPRESSION: No acute findings. Dictated by: Miguelito Peña MD 03/15/2020 05:38 Miguelito Peña MD in [place] 03/15/2020 05:38
--- NOTE | 2020-03-14 13:00 | HMH.EDGENADL ---
ED Disposition Clinical Impression: Chest wall contusion Qualifiers: Encounter type: initial encounter Laterality: left Qualified Code(s): S20.212A - Contusion of left front wall of thorax, initial encounter Abdominal wall contusion Qualifiers: Encounter type: initial encounter Qualified Code(s): S30.1XXA - Contusion of abdominal wall, initial encounter Disposition: Home, Self-Care Condition on Discharge: Good Additional Instructions: Continue taking your tramadol, gabapentin, and ibuprofen for pain. Rest. Call your primary care provider tomorrow for follow-up. Incidental findings on your CAT scan of the abdomen that will need follow-up: A spot on your liver, the radiologist recommends an MRI which you can arrange through your primary care provider Thickening of the wall of your bladder, which I would recommend you see urologist Dr. Mayorga about Referrals: Liang Jones MD [Primary Care Provider] - Eliezer Mayorga MD [Staff Physician] - (call for appointment) - Critical Care Critical Care Time: No Attestation: On 03/14/20, the high probability of a clinically significant, sudden or life threatening deterioration of the following system(s) required my full and direct attention, intervention and personal management. The time I documented below is in addition to time spent performing reported procedures but includes the following listed in this critical care notation. Medical Decision Making - Kevin Inquiry Pt receiving controlled substance: Yes Kevin was queried for this patient: Yes Reference #:: [id number] Risks and benefits of using a controlled substance: were not discussed with pt by me Comment: 17 rxs. last rx 90 tramadol on 03/03/2020. also on gabapentin Vital Signs: 03/14/20 12:49 Temperature 98.3 F Temperature Source Oral Pulse Rate [Right Radial] 107 H Respiratory Rate 20 Blood Pressure [Right Arm] 186/102 H Blood Pressure Mean [Right Arm] 130 02 Sat by Pulse Oximetry 97 Oxygen Delivery Method Room Air - Lab Data Lab Results 03/14/20 13:45: WBC 11.0 H, RBC 4.66, Hgb 13.6 L, Hct 43.3, MCV 92.9, MCH 29.2, MCHC 31.4 L, RDW 15.4, Plt Count 353, MPV 6.9 L, Neut % (Auto) 58.9, Lymph % (Auto) 30.6, [place] % (Auto) 6.8, Eos % (Auto) 2.9, Baso % (Auto) 0.8, Neut # (Auto) 6.5, Lymph # (Auto) 3.4, [place] # (Auto) 0.7, Eos # (Auto) 0.3, Baso # (Auto) 0.1 03/14/20 13:45: Sodium 139, Potassium 4.9, Chloride 99, Carbon Dioxide 30, Anion Gap 14.9, BUN 17, Creatinine 1.00, Estimated Creat Clear 78, Estimated GFR 75, Est GFR ( Amer) 90, Glucose 115 H, Calcium 10.6 H, Total Bilirubin 0.5, AST 32, ALT 19, Alkaline Phosphatase 105, Total Protein 8.4 H, Albumin 4.9, Globulin 3.5 H, Albumin/Globulin Ratio 1.4, Amylase 98, Lipase 89 03/14/20 14:45: Urine Color Yellow, Urine Appearance Clear, Urine pH 6.0, Ur Specific [place] 1.020, Urine Protein Negative, Urine Glucose (UA) Negative, Urine Ketones Negative, Urine Blood Negative, Urine Nitrate Negative, Urine Bilirubin Negative, Urine Urobilinogen 0.2, Ur Leukocyte Esterase Negative, Urine RBC None, Urine WBC None, Ur Squamous Epith Cells None, Urine Bacteria None Result diagrams: 03/14/20 13:45 03/14/20 13:45 Orders (Tests/Meds): ED MEDICATIONS Discontinued Medications Generic Name Dose Route Start Last Admin Trade Name Beena PRN Reason Stop Dose Admin Iopamidol 75 ml 03/14/20 14:32 03/14/20 14:33 Iopamidol-370 (76%);100ml Bottle IV 03/14/20 14:33 75 ml ONCE ONE Administration Ketorolac Tromethamine 60 mg 03/14/20 12:56 03/14/20 13:12 Ketorolac 30mg/Ml Vial IM 03/14/20 12:57 60 mg ONCE ONE Administration Morphine Sulfate 4 mg 03/14/20 13:31 03/14/20 13:49 Morphine 4mg/Ml Syringe IV 03/14/20 13:32 4 mg ONCE ONE Administration Morphine Sulfate 4 mg 03/14/20 15:11 03/14/20 15:12 Morphine 4mg/Ml Syringe IV 03/14/20 15:12 4 mg ONCE ONE Administration Ondansetron HCl 4 mg 03/14/20 13:31 03/14/20 13:49
--- NOTE | 2020-03-14 13:31 | CT_ITS ---
PROCEDURE: CT ABDOMEN PELVIS W CON CLINICAL INDICATION: abdominal trauma Left-sided abdominal pain following injury, Blunt trauma with injury and pain, contusion/abrasion or hematoma following injury COMPARISON: CT ABDPELWO CT abdomen pelvis wo con from 11/12/[address] abdomen pelvis wo con from 03/22/[address] ABDOMEN PELVIS WO CON from 10/07/2019 TECHNIQUE: IV Contrast: 75ML Isovue 370 Oral Contrast None Axial images obtained with sagittal and coronal reformats. All CT scans at the facility use one or more dose reduction, viz: automated exposure control, ma/kV adjustment per patient size (including targeted exams where dose is matched to indication, i.e. head), or iterative reconstruction technique. FINDINGS: LOWER THORAX: There are mild atelectatic changes in the right lung base. Scarring noted within the lingula. There is some calcification along the mitral valve annular region. There is a 12 mm hypodensity in the hepatic dome probably not significantly changed from 10/07/2019.. This however is not readily apparent on a older exam 03/22/2018. That study however was performed without contrast. Liver is otherwise unremarkable. The spleen is unremarkable. The no obvious adrenal nodule. No renal or ureteral calculi or hydronephrosis. Decreased attenuation is present in the pancreatic head in the uncinate process which is stable having somewhat fatty density. There is atherosclerotic change of the abdominal aorta. There is a mild amount of retained colonic feces. No evidence of appendicitis. There are few fluid-filled loops of small bowel in the lower abdominal and pelvic region nonspecific. Urinary bladder wall appears thickened. There is degenerative change in the lumbar spine and postsurgical changes at the lumbosacral junction with inter pedicular screws IMPRESSION: 1. Indeterminate 12 mm hypodense lesion in the hepatic dome. Suggest MRI of with hemangioma protocol without and with gadolinium enhancement. 2. Nonspecific bowel gas pattern with some fluid-filled small bowel loops in the lower abdomen and pelvis which could be seen with ileus or enteritis. Low grade obstruction not entirely excluded. Please correlate with clinical parameters. 3. Mild thickening of the urinary bladder wall nonspecific but may be related to cystitis. Dictated by: Miguelito Peña MD 03/15/2020 07:15 Miguelito Peña MD in [place] 03/15/2020 07:15
[2020-03-14 13:58] LABS: Basophils # 0.1 K/mm3 (0-0.2); Basophils % 0.8 % (0.1-2.0); Eosinophils # 0.3 K/mm3 (0.0-0.4); Eosinophils % 2.9 % (0.1-12.0); Hematocrit 43.3 % (42.0-52.0); Hemoglobin 13.6 g/dL (14.1-18.0); Lymphocytes # 3.4 K/mm3 (0.7-4.5); Lymphocytes % 30.6 % (10-50); Mean Corpuscular HGB Conc 31.4 g/dL (31.8-35.4); Mean Corpuscular Hemoglobin 29.2 pg (27.0-31.2); Mean Corpuscular Volume 92.9 fl (80-94); Mean Platelet Volume 6.9 fl (7.4-10.4); Monocytes # 0.7 K/mm3 (0.1-1.0); Monocytes % 6.8 % (1.7-9.3); Neutrophils # 6.5 K/mm3 (1.8-7.8); Neutrophils % 58.9 % (37.0-80.0); Platelet Count 353 K/mm3 (142-424); Red Blood Count 4.66 M/mm3 (4.60-6.20); Red Cell Distribution Width 15.4 % (11.5-17.5)
[2020-03-14 14:06] LABS: Chloride 99 mmol/L (98-107); Potassium 4.9 mmoL/L (3.5-5.1); Sodium 139 mmol/L (136-145)
[2020-03-14 14:09] LABS: Alanine Aminotransferase 19 U/L (12-78); Alkaline Phosphatase 105 U/L (38-126); Amylase 98 U/L (30-110); Anion Gap 14.9 mEq/L (5-15); Aspartate Amino Transferase 32 U/L (17-59); Bilirubin,Total 0.5 mg/dl (0.2-1.3); Blood Urea Nitrogen 17 mg/dl (9-20); Calcium 10.6 mg/dl (8.4-10.2); Carbon Dioxide 30 mmol/L (22.0-30.0); Creatinine Clearance Estimated 78 mL/min (50-200); Estimated Glomerular Filt Rate 75 ml/min (>60); GFR (African American) 90 ML/MIN (>60); Glucose 115 mg/dl (74-100); Lipase 89 U/L (23-300)
[2020-03-14 14:10] LABS: Albumin Level 4.9 g/dl (3.5-5.0); Albumin/Globulin Ratio 1.4 (1.1-1.8); Globulin 3.5 g/dL (1.3-3.2); Total Protein,Serum 8.4 g/dl (6.3-8.2)
[2020-03-14 14:57] LABS: Microscopic, Urine URINE MICROSCOPIC (MICROSCOPIC)
[2020-03-14 14:58] LABS: Appearance,Urine CLEAR (Clear); Bilirubin,Urine Negative (Negative); Blood, Urine Negative (Negative); Color,Urine YELLOW (Yellow); Glucose,Urine (UA) Negative (Negative); Ketones,Urine Negative (Negative); Leukocyte Esterase,Urine Negative (Negative); Nitrate,Urine Negative (Negative); Protein,Urine Negative (Negative); Urobilinogen,Urine 0.2 EU/dl (0.2)
[2020-03-14 16:39] VITALS: BP 142/74; PULSE 87; RESP 16; TEMP 36.6; O2SAT 98
== END 2020-03-14 16:41 | disposition home or self-care (01) ==
PROVIDERS: Emergency Provider Emergency Medicine; PCP Emergency Medicine
DX: S20.212A Contusion of left front wall of thorax, initial encounter (principal); S30.1XXA Contusion of abdominal wall, initial encounter; W01.198A Fall on same level from slipping, tripping and stumbling with subsequent striking against other object, initial encounter; Y92.019 Unspecified place in single-family (private) house as the place of occurrence of the external cause; I10 Essential (primary) hypertension; J44.9 Chronic obstructive pulmonary disease, unspecified; K21.9 Gastro-esophageal reflux disease without esophagitis; E78.5 Hyperlipidemia, unspecified; Z87.442 Personal history of urinary calculi; F17.210 Nicotine dependence, cigarettes, uncomplicated; Z79.899 Other long term (current) drug therapy
CPT/HCPCS: 71101; 74177; 80053; 81001; 82150; 83690; 85025; 96374; 96375; 96376; 99282; J2405; Q9967

== ENCOUNTER → 2020-03-29 14:29 | Outpatient (CLI) | payer MEDICARE, MEDICAID, SELFPAY ==
[2020-03-29 16:03] LABS: Prostate Specific Ag, Diagnost 0.997 ng/ml (0.0-4.0)
== END ==
PROVIDERS: Visit Provider Urology
DX: C61 Malignant neoplasm of prostate (principal)
CPT/HCPCS: 36415; 84153

== ENCOUNTER → 2020-04-14 10:33 | Outpatient (CLI) | payer MEDICARE, MEDICAID, SELFPAY ==
[2020-04-14 12:32] LABS: Chloride 99 mmol/L (98-107); Sodium 138 mmol/L (136-145)
[2020-04-14 12:33] LABS: Potassium 4.9 mmoL/L (3.5-5.1)
[2020-04-14 12:36] LABS: Anion Gap 14.9 mEq/L (5-15); Blood Urea Nitrogen 19 mg/dl (9-20); Calcium 10.6 mg/dl (8.4-10.2); Carbon Dioxide 29 mmol/L (22.0-30.0); Estimated Glomerular Filt Rate 60 ml/min (>60); GFR (African American) 73 ML/MIN (>60); Glucose 114 mg/dl (74-100)
== END ==
PROVIDERS: Visit Provider Nurse Practitioner Family
DX: Z01.818 Encounter for other preprocedural examination (principal); R59.0 Localized enlarged lymph nodes
CPT/HCPCS: 36415; 80048

== ENCOUNTER → 2020-04-15 09:18 | Outpatient (CLI) | payer MEDICARE, MEDICAID, SELFPAY ==
--- NOTE | 2020-04-15 09:19 | MR_ITS ---
PROCEDURE: MR ABDOMEN WO/W CON CLINICAL INDICATION: Abd pain CONTUSION ON RIB CAGE. ABNORMAL CT [id number]. HX CHRON'S DISEASE AND ULCERATIVE COLITIS. COMPARISON: CT CT ABDOMEN PELVIS WO CON from 10/07/[address] ABDOMEN PELVIS W CON from 03/14/2020 TECHNIQUE: Routine multiplanar multi echo sequences are performed without and with gadolinium enhancement. FINDINGS: There is a 12 mm lesion in the hepatic dome posteriorly segment 7. this is hyperintense on T2 and demonstrates peripheral contrast enhancement filling in on delayed images with similar intensity to the aorta on the delayed images consistent with a hemangioma. No other liver lesions are evident. The gallbladder, biliary tree, pancreas, and kidneys have an unremarkable appearance. There are atheromatous changes of the abdominal aorta. Artifact present from prior lumbar surgery with mild lumbar scoliosis convex left. There is some cortical scarring of the left kidney superiorly IMPRESSION: 12 mm liver lesion in the right hepatic lobe segment 7 appears to represent a hemangioma. Otherwise negative MRI of the abdomen Dictated by: Miguelito Peña MD 04/19/2020 13:19 Miguelito Peña MD in [place] 04/19/2020 13:19
== END ==
PROVIDERS: PCP Nurse Practitioner Family; Visit Provider Nurse Practitioner Family
DX: K76.9 Liver disease, unspecified (principal); R10.9 Unspecified abdominal pain
CPT/HCPCS: 74183; A9576

== ENCOUNTER → 2020-04-26 09:27 | Outpatient (CLI) | payer MEDICARE, MEDICAID, SELFPAY ==
[2020-04-26 09:55] LABS: Basophils # 0.1 K/mm3 (0-0.2); Basophils % 0.8 % (0.1-2.0); Eosinophils # 0.4 K/mm3 (0.0-0.4); Eosinophils % 3.6 % (0.1-12.0); Hematocrit 47.5 % (42.0-52.0); Hemoglobin 15.3 g/dL (14.1-18.0); Lymphocytes # 3.1 K/mm3 (0.7-4.5); Lymphocytes % 27.1 % (10-50); Mean Corpuscular HGB Conc 32.3 g/dL (31.8-35.4); Mean Corpuscular Hemoglobin 30.6 pg (27.0-31.2); Mean Platelet Volume 11.2 fl (7.4-10.4); Monocytes # 0.7 K/mm3 (0.1-1.0); Monocytes % 5.9 % (1.7-9.3); Neutrophils # 7.1 K/mm3 (1.8-7.8); Neutrophils % 62.6 % (37.0-80.0); Platelet Count 384 K/mm3 (142-424); Red Cell Distribution Width 15.5 % (11.5-17.5); White Blood Count 11.3 K/mm3 (4.8-10.8)
[2020-04-26 10:32] LABS: Erythrocyte Sedimentation Rate 11 mm/hr (0-20)
[2020-04-26 10:38] LABS: 25-OH Vitamin D, Total 34.4 ng/mL (30-100)
[2020-04-26 10:58] LABS: Chloride 99 mmol/L (98-107); Potassium 4.6 mmoL/L (3.5-5.1); Sodium 139 mmol/L (136-145)
[2020-04-26 11:00] LABS: Alanine Aminotransferase 15 U/L (12-78); Alkaline Phosphatase 92 U/L (38-126); Aspartate Amino Transferase 26 U/L (17-59); Bilirubin,Total 0.5 mg/dl (0.2-1.3); Blood Urea Nitrogen 24 mg/dl (9-20); Estimated Glomerular Filt Rate 55 ml/min (>60); GFR (African American) 67 ML/MIN (>60)
[2020-04-26 11:01] LABS: Albumin Level 5.4 g/dl (3.5-5.0); Albumin/Globulin Ratio 1.4 (1.1-1.8); Anion Gap 15.6 mEq/L (5-15); Calcium 10.5 mg/dl (8.4-10.2); Carbon Dioxide 29 mmol/L (22.0-30.0); Globulin 3.8 g/dL (1.3-3.2); Glucose 141 mg/dl (74-100); Iron 82 ug/dL (49-181); Total Protein,Serum 9.2 g/dl (6.3-8.2)
[2020-04-26 11:07] LABS: C-Reactive Protein 11.3 mg/L (0-4)
[2020-04-26 11:10] LABS: Total Iron Binding Capacity 413 ug/dL (261-462)
== END ==
PROVIDERS: Visit Provider Emergency Medicine
DX: K50.90 Crohn's disease, unspecified, without complications (principal); K21.9 Gastro-esophageal reflux disease without esophagitis
CPT/HCPCS: 36415; 80053; 82306; 82728; 83540; 83550; 85025; 85651; 86140

== ENCOUNTER 2020-06-24 21:31 | Emergency (ER) | payer MEDICARE, MEDICAID, SELFPAY ==
[2020-06-24 21:32] VITALS: BP 175/112; PULSE 97; RESP 18; TEMP 36.8; O2SAT 99; BMI 24.7
[2020-06-24 21:40] VITALS: BP 178/100; PULSE 88
--- NOTE | 2020-06-24 21:57 | HMH.EDBACK ---
ED Disposition Clinical Impression: Postlaminectomy syndrome Strain of lumbar region Qualifiers: Encounter type: initial encounter Qualified Code(s): S39.012A - Strain of muscle, fascia and tendon of lower back, initial encounter Chronic back pain Qualifiers: Back pain location: low back pain Back pain laterality: left Sciatica presence: without sciatica Qualified Code(s): M54.5 - Low back pain; G89.29 - Other chronic pain Disposition: Home, Self-Care Condition on Discharge: Good Instructions: DI for Low Back Pain Additional Instructions: use meds and see pcp for follow up Prescriptions: predniSONE [Prednisone 20mg Tab] 20 mg PO BID #10 tab Transmission Status: Pending to [facility] Referrals: Liang Jones MD [Primary Care Provider] - - Critical Care Critical Care Time: No Attestation: On 06/24/20, the high probability of a clinically significant, sudden or life threatening deterioration of the following system(s) required my full and direct attention, intervention and personal management. The time I documented below is in addition to time spent performing reported procedures but includes the following listed in this critical care notation. Medical Decision Making - Medical Records Medical records reviewed: Yes: I reviewed the patient's medical records. - Kevin Inquiry Pt receiving controlled substance: No Vital Signs: 06/24/20 21:32 Temperature 98.3 F Temperature Source Oral Pulse Rate [Right Radial] 97 H Respiratory Rate 18 Blood Pressure [Right Arm] 175/112 H Blood Pressure Mean [Right Arm] 133 Blood Pressure Source [Right Arm] Automatic Cuff Blood Pressure Position [Right Arm] Sitting 02 Sat by Pulse Oximetry 99 Oxygen Delivery Method Room Air Medical Decision Narrative: will ask pt to call pcp in am- has chronic back pain with acute excerbation - no clinical indications for xrays Back Pain HPI - General Chief Complaint: Back Pain/Injury Stated Complaint: AO 06/24 @2100 injured back Time Seen by Provider: 06/24/20 21:57 Mode of Arrival: Ambulatory Source of Information: Patient, Spouse, Medical Record Limitations: No Limitations Description of Symptoms (Recalled from ER Triage Doc. by RN): Pt reports picking up a TV 45 min prior to arrival and feeling a pinch in lower back. Pt denies radiating pain, ambulatory into ED. - History of Present Illness HPI Narrative: hx of chronic back pain with prev surg - lifting tv base and felt pinching - no cauda equina sx - saw pcp today Complaint: back pain, back injury Onset (ago): hour(s) Duration: constant Similar Symptoms Previously: Yes Location: lumbar spine Severity: moderate Quality: sharp Radiation: none Context: while lifting Associated symptoms: denies other symptoms Pertinent Issues R/T Back Pain: Back Surgery - Related Data Home Medications Medication Instructions Recorded Confirmed Bacillus coagulans 250 million cell PO 04/29/20 06/24/20 cell chewable tablet calcium polycarbophil 625 mg tablet 1,250 mg PO BID 04/29/20 06/24/20 Previous Rx's Medication Instructions Recorded fluticasone furoate 200 1 inh INHALATION DAILY #28 each 01/08/20 mcg-vilanterol 25 mcg/dose inhalation powder buspirone 10 mg tablet 10 mg PO BID 60 Days #120 tab 05/27/20 hydrochlorothiazide 12.5 mg capsule 12.5 mg PO DAILY #90 cap 05/27/20 lisinopril 20 mg tablet 20 mg PO BID #120 tab 05/27/20 mesalamine 0.375 gram 1.5 g PO DAILY 30 Days #120 cap 05/27/20 capsule,extended release 24 hr gabapentin 800 mg tablet 800 mg PO TID PRN #90 tab 06/24/20 pantoprazole 40 mg tablet,delayed 40 mg PO DAILY #30 tab 06/24/20 release predniSONE [Prednisone 20mg 20 mg PO BID #10 tab 06/24/20 Tab] tramadol 50 mg tablet 50 mg PO TID 30 Days #90 tab 06/24/20 Allergies Allergy/AdvReac Type Severity Reaction Status Date / Time No Known Allergies Allergy Verified 06/24/20 11:19 [facility] History - Hepatitis
[2020-06-24 22:30] VITALS: BP 177/103; PULSE 92; RESP 18; TEMP 36.4; O2SAT 98
== END 2020-06-24 22:32 | disposition home or self-care (01) ==
PROVIDERS: Emergency Provider Emergency Medicine; PCP Emergency Medicine
DX: M96.1 Postlaminectomy syndrome, not elsewhere classified (principal); S39.012A Strain of muscle, fascia and tendon of lower back, initial encounter; X50.0XXA Overexertion from strenuous movement or load, initial encounter; Y92.019 Unspecified place in single-family (private) house as the place of occurrence of the external cause; I10 Essential (primary) hypertension; E78.5 Hyperlipidemia, unspecified; J44.9 Chronic obstructive pulmonary disease, unspecified; K21.9 Gastro-esophageal reflux disease without esophagitis; F17.210 Nicotine dependence, cigarettes, uncomplicated; Z79.899 Other long term (current) drug therapy
CPT/HCPCS: 96372; 99281

== ENCOUNTER 2020-06-25 17:56 | Emergency (ER) | payer MEDICARE, MEDICAID, SELFPAY ==
[2020-06-25 17:57] VITALS: BP 132/98; PULSE 112; RESP 21; TEMP 36.8; O2SAT 99; BMI 24.7
--- NOTE | 2020-06-25 18:40 | HMH.EDGENADL ---
ED Disposition Clinical Impression: Lumbar radiculopathy Disposition: Home, Self-Care Condition on Discharge: Good Instructions: DI for Low Back Pain Prescriptions: Lidocaine [Lidocaine Pain Relief] 1 each TP DAILY PRN 7 Days #7 adh..patch PRN Reason: Mild To Moderate Pain Transmission Status: Received by [facility] methocarbamoL [Robaxin 750mg Tab] 750 mg PO TID PRN 5 Days #15 tab PRN Reason: Mild To Moderate Pain Transmission Status: Received by [facility] Referrals: Liang Jones MD [Primary Care Provider] - - Critical Care Critical Care Time: No Attestation: On 06/25/20, the high probability of a clinically significant, sudden or life threatening deterioration of the following system(s) required my full and direct attention, intervention and personal management. The time I documented below is in addition to time spent performing reported procedures but includes the following listed in this critical care notation. Medical Decision Making - Medical Records Medical records reviewed: Yes: I reviewed the patient's medical records. - Kevin Inquiry Pt receiving controlled substance: No Vital Signs: 06/25/20 17:57 Temperature 98.2 F Temperature Source Oral Pulse Rate [Left Radial] 112 H Respiratory Rate 21 Blood Pressure [Right Arm] 132/98 H Blood Pressure Mean [Right Arm] 109 Blood Pressure Source [Right Arm] Automatic Cuff Blood Pressure Position [Right Arm] Sitting 02 Sat by Pulse Oximetry 99 Oxygen Delivery Method Room Air Orders (Tests/Meds): ED MEDICATIONS Discontinued Medications Generic Name Dose Route Start Last Admin Trade Name Freq PRN Reason Stop Dose Admin Lidocaine 1 each 06/25/20 18:15 06/25/20 18:34 Lidocaine 5% Transdermal Patch TP 06/25/20 18:16 1 each ONCE ONE Administration Morphine Sulfate 6 mg 06/25/20 18:16 06/25/20 18:34 Morphine 2mg/Ml Syringe IM 06/25/20 18:17 6 mg ONCE ONE Administration Ondansetron HCl 4 mg 06/25/20 18:15 06/25/20 18:34 Ondansetron 4mg Odt SL 06/25/20 18:16 4 mg ONCE ONE Administration Medical Decision Narrative: 69-year-old male presents with sudden onset back pain last night. He is not have concerning symptoms for cauda equina syndrome. His back pain appears to be worsening because he has been out of pain control. Plan to give morphine here as well as lidocaine patch and discharged home with muscle relaxer and lidocaine patch. Otherwise he has normal neurological exam and no concern for infectious etiology or traumatic injury and recommend follow-up for MRI versus physical therapy with primary care physician General Adult HPI - General Chief complaint: Back Pain/Injury Stated complaint: back pain vomitting Time Seen by Provider: 06/25/20 18:00 Mode of Arrival: Ambulatory Limitations: No Limitations Description of Symptoms (Recalled from ER Triage Doc. by RN): Pt states he was picking up a TV last night and when he started with severe left back pain, was seen here last night and was better at home and then he went to the bathroom earlier and his pain started again. - History of Present Illness HPI narrative: 69-year-old male presents after having sudden onset severe back pain last night. He says that he was seen here and given pain medicine he felt better and was discharged home today he called for the prescription however it was too expensive and he came in for pain control and nausea. He is denying urinary or bowel incontinence he is able to ambulate. No perineal numbness. No fever no chills no direct trauma to his back Onset (ago): day(s) (2) Location: back Radiation: non-radiation Severity: moderate Consistency: constant - Related Data Home Medications Medication Instructions Recorded Confirmed Bacillus coagulans 250 million cell PO 04/29/20 06/24/20 cell chewable tablet calcium polycarbophil 625 mg tablet 1,250 mg PO BID 04/29/20 06/24/20 Previous Rx's
--- NOTE | 2020-06-25 19:09 | PC.NURSE ---
[facility] pharmacy called and advised the patients prescription was not covered by insurance and requested to change it to Flexaril 10mg. advised and gave the okay.
[2020-06-25 19:20] VITALS: BP 149/90; PULSE 106; RESP 20; TEMP 36.8; O2SAT 96
== END 2020-06-25 19:22 | disposition home or self-care (01) ==
PROVIDERS: Emergency Provider Emergency Medicine; PCP Emergency Medicine
DX: M54.16 Radiculopathy, lumbar region (principal); F17.210 Nicotine dependence, cigarettes, uncomplicated; Z79.899 Other long term (current) drug therapy
CPT/HCPCS: 96372; 99281

== ENCOUNTER → 2020-09-29 11:28 | Outpatient (CLI) | payer MEDICARE, MEDICAID, SELFPAY ==
--- NOTE | 2020-09-29 11:33 | XR_ITS ---
PROCEDURE: XR LUMBAR SPINE 2-3V CLINICAL INDICATION: back pain COMPARISON: CR XR LUMBAR SPINE 2-3V from 07/31/2019 FINDINGS: Metallic brackets and pedicle screws are again seen fusing L5 and S1. There is an opaque spacer L5-S1 disc space. There is suggestion of bony spinal stenosis at the L4-5 and L5-S1 levels. Disc space narrowing is seen at the L3-4 and L4-5 levels with marginal anterior osteophytic spurring noted at each level. There is prominent anterior osteophytic spurring at the anterior superior border of L2. IMPRESSION: Postsurgical and post degenerate changes lumbar spine no significant interval progression from the previous study 07/31/2019 Dictated by: Dr. Vikas Sepulveda MD 09/29/2020 11:50 Dr. Vikas Sepulveda MD in [place] 09/29/2020 11:50
== END ==
PROVIDERS: PCP Family Medicine; Visit Provider Family Medicine
DX: G89.29 Other chronic pain (principal); M54.9 Dorsalgia, unspecified; M54.5 Low back pain
CPT/HCPCS: 72100

== ENCOUNTER → 2020-10-25 08:00 | Outpatient (POV) | payer MEDICARE, MEDICAID, SELFPAY ==
[2020-10-25 10:27] LABS: Basophils # 0.1 K/mm3 (0-0.2); Basophils % 0.7 % (0.1-2.0); Eosinophils # 0.4 K/mm3 (0.0-0.4); Hematocrit 40.2 % (42.0-52.0); Hemoglobin 13.4 g/dL (14.1-18.0); Lymphocytes # 2.5 K/mm3 (0.7-4.5); Lymphocytes % 27.1 % (10-50); Mean Corpuscular HGB Conc 33.3 g/dL (31.8-35.4); Mean Corpuscular Hemoglobin 30.1 pg (27.0-31.2); Mean Corpuscular Volume 90.5 fl (80-94); Mean Platelet Volume 7.3 fl (7.4-10.4); Monocytes # 0.8 K/mm3 (0.1-1.0); Monocytes % 8.7 % (1.7-9.3); Neutrophils # 5.6 K/mm3 (1.8-7.8); Neutrophils % 59.4 % (37.0-80.0); Platelet Count 326 K/mm3 (142-424); Red Blood Count 4.44 M/mm3 (4.60-6.20); Red Cell Distribution Width 14.9 % (11.5-17.5); White Blood Count 9.4 K/mm3 (4.8-10.8)
[2020-10-25 11:00] LABS: Albumin/Globulin Ratio 1.5 (1.1-1.8); Anion Gap 14.1 mEq/L (5-15); GFR (African American) 61 ML/MIN (>60); Iron 71 ug/dL (49-181)
[2020-10-25 11:06] LABS: Blood Urea Nitrogen 23 mg/dl (9-20); Calcium 10.2 mg/dl (8.4-10.2); Carbon Dioxide 28 mmol/L (22.0-30.0); Chloride 106 mmol/L (98-107); Estimated Glomerular Filt Rate 51 ml/min (>60); Glucose 114 mg/dl (74-100); Potassium 5.1 mmoL/L (3.5-5.1); Sodium 143 mmol/L (136-145)
[2020-10-25 11:07] LABS: Alanine Aminotransferase 18 U/L (12-78); Albumin Level 5.1 g/dl (3.5-5.0); Alkaline Phosphatase 79 U/L (38-126); Aspartate Amino Transferase 26 U/L (17-59); Bilirubin,Total 0.2 mg/dl (0.2-1.3); Globulin 3.3 g/dL (1.3-3.2); Total Protein,Serum 8.4 g/dl (6.3-8.2)
[2020-10-25 11:10] LABS: Total Iron Binding Capacity 401 ug/dL (261-462)
[2020-10-25 11:13] LABS: Erythrocyte Sedimentation Rate 19 mm/hr (0-20)
[2020-10-25 11:16] LABS: 25-OH Vitamin D, Total 41.4 ng/mL (30-100)
[2020-10-25 12:05] LABS: Vitamin B12 847 pg/mL (239-931)
[2020-10-27 18:12] LABS: Calprotectin, Fecal 64 ug/g (0-120)
== END ==
PROVIDERS: Visit Provider Nurse Practitioner Family
DX: K21.9 Gastro-esophageal reflux disease without esophagitis (principal); D64.9 Anemia, unspecified
CPT/HCPCS: 36415; 80053; 82306; 82607; 82728; 83540; 83550; 83993; 85025; 85651; 86140

== ENCOUNTER → 2021-01-20 13:58 | Outpatient (CLI) | payer MEDICARE, MEDICAID, SELFPAY ==
[2021-01-20 14:37] LABS: Barbiturates Screen,Urine Negative ng/ml (<200)
[2021-01-20 14:38] LABS: Amphetamine/Metha Screen,Urine Negative ng/ml (<1000); Benzodiazepines Screen,Urine Negative ng/ml (<200)
[2021-01-20 14:39] LABS: Methadone Screen,Urine Negative ng/ml (<300)
[2021-01-20 14:40] LABS: Cannabinoid Screen,Urine Negative ng/ml (<50); Cocaine Screen,Urine Negative ng/ml (<300)
[2021-01-20 14:42] LABS: Opiate Screen,Urine Negative ng/ml (<300)
[2021-01-20 14:43] LABS: Phencyclidine Screen,Urine Negative ng/ml (<25)
== END ==
PROVIDERS: Visit Provider Family Medicine
DX: N39.0 Urinary tract infection, site not specified (principal); R06.02 Shortness of breath; M47.816 Spondylosis without myelopathy or radiculopathy, lumbar region; Z20.822 Contact with and (suspected) exposure to COVID-19; R50.9 Fever, unspecified; Z72.0 Tobacco use
CPT/HCPCS: 80305; 87086; C9803; U0003; U0005

== ENCOUNTER → 2021-04-21 13:31 | Outpatient (CLI) | payer MEDICARE, MEDICAID, SELFPAY | PROVIDERS: PCP Family Medicine; Visit Provider Nurse Practitioner | DX: Z20.822 Contact with and (suspected) exposure to COVID-19 (principal) | CPT/HCPCS: C9803; U0003; U0005 ==

== ENCOUNTER 2021-07-07 19:38 | Observation (INO) | payer MEDICARE, MEDICAID, SELFPAY ==
[2021-07-07] VITALS (8 sets, daily range): BP systolic 127–187; BP diastolic 78–92; PULSE 67–81; RESP 10–20; TEMP 36.4–37.1; O2SAT 78–99; BMI 22.8; BMI 23.5
--- NOTE | 2021-07-07 19:34 | ECG_ITS ---
APPROVED REPORT Exam: Resting ECG HR:79 bpm ECG Measurements Heart Rate 79 AXES PA 180 P 61 QRSd 114 QRS 55 QT 352 T 50 QTc 386 Conclusion SINUS RHYTHM MODERATE INTRAVENTRICULAR CONDUCTION DELAY [110+ ms QRS DURATION] BORDERLINE ECG UNCONFIRMED REPORT Electronically signed by : Dallas June MD 07/09/2021 08:16:59
--- NOTE | 2021-07-07 19:41 | XR_ITS ---
PROCEDURE INFORMATION: Exam: XR Chest Exam date and time: 07/07/2021 7:44 PM Age: 70 years old Clinical indication: Sternal or substernal pain; Additional info: Left arm pain TECHNIQUE: Imaging protocol: XR of the chest. Views: 1 view. COMPARISON: CR XR RIBS LT MIN 3V W CXR1V 03/14/2020 12:58 PM FINDINGS: Lungs: No consolidation. Pleural spaces: No pneumothorax. Heart/Mediastinum: No cardiomegaly. Bones/joints: Degenerative changes of the shoulders. IMPRESSION: No acute cardiopulmonary process.
--- NOTE | 2021-07-07 19:42 | HMH.EDEXTP ---
ED Disposition Condition on Discharge: Good - Critical Care Critical Care Time: No <Mike Cook - Last Filed: 07/07/21 19:42> <Liang Jones - Last Filed: 07/07/21 21:18> Clinical Impression: Tobacco use Disposition: Admitted As Inpatient Attestation: On 07/07/21, the high probability of a clinically significant, sudden or life threatening deterioration of the following system(s) required my full and direct attention, intervention and personal management. The time I documented below is in addition to time spent performing reported procedures but includes the following listed in this critical care notation. Medical Decision Making - Medical Records Medical records reviewed: Yes: I reviewed the patient's medical records. - Kevin Inquiry Pt receiving controlled substance: No - ECG Data Tracing #1 I reviewed this ECG and interpreted as documented below: <Mike Cook - Last Filed: 07/07/21 19:42> - Lab Data Lab results reviewed: Yes: I reviewed the patient's lab results. Result diagrams: 07/07/21 19:40 07/07/21 19:40 - Radiology Data #1 Image(s): Chest Image Reviewed: Yes I have reviewed radiologist's interpretation Preliminary Findings: Normal/NAD - MIRIAM Score for Non-Stemi Age of Patient: 60-69 years old Heart Rate: 70-89 bpm Systolic Blood Pressure: 160-199 mmHg Serum Creatinine: 1.20-1.59 mg/dl CHF [place] Class: I-No CHF Other Risk Factors: None Non-Stemi Risk Score: 87 <Liang Jones S - Last Filed: 07/07/21 21:18> Vital Signs: 07/07/21 19:38 Temperature 97.6 F Temperature Source Oral Pulse Rate [Left] 81 Respiratory Rate 10 L Blood Pressure [Right Arm] 187/92 H Blood Pressure Mean [Right Arm] 123 02 Sat by Pulse Oximetry 78 L Oxygen Delivery Method Room Air - Lab Data Lab Results 07/07/21 19:40: WBC 10.5, RBC 4.64, Hgb 14.1, Hct 42.7, MCV 91.9, MCH 30.4, MCHC 33.0, RDW 13.8, Plt Count 386, MPV 8.1, Neut % (Auto) 54.4, Lymph % (Auto) 34.3, [place] % (Auto) 5.8, Eos % (Auto) 4.3, Baso % (Auto) 1.2, Neut # (Auto) 5.7, Lymph # (Auto) 3.6, [place] # (Auto) 0.6, Eos # (Auto) 0.5 H, Baso # (Auto) 0.1 07/07/21 19:40: Sodium 139, Potassium 3.8, Chloride 105, Carbon Dioxide 24, Anion Gap 13.8, BUN 21 H, Creatinine 1.20, Estimated Creat Clear 59, Estimated GFR 60, Est GFR ( Amer) 73, Glucose 101 H, Calcium 9.0, Total Bilirubin 0.4, AST 25, ALT 15, Alkaline Phosphatase 103, Troponin I < 0.01, Total Protein 8.3 H, Albumin 4.7, Globulin 3.6 H, Albumin/Globulin Ratio 1.3 Orders (Tests/Meds): ED MEDICATIONS Discontinued Medications Generic Name Dose Route Start Last Admin Trade Name Freq PRN Reason Stop Dose Admin Aspirin 324 mg 07/07/21 19:42 07/07/21 19:55 Aspirin 81mg Chewable Tablet PO 07/07/21 19:43 324 mg ONCE ONE Administration Ceftriaxone Sodium 1 gm/ 50 mls @ 100 mls/hr 07/07/21 21:09 Sodium Chloride IV 07/07/21 21:38 ONCE ONE Iopamidol 70 ml 07/07/21 20:20 07/07/21 20:22 Iopamidol-370 (76%);100ml Bottle IV 07/07/21 20:21 70 ml ONCE ONE Administration Nitroglycerin 0.4 mg 07/07/21 20:33 07/07/21 20:34 Nitroglycerin 0.4mg Sl Tablet SL 07/07/21 20:34 0.4 mg ONCE ONE Administration Nitroglycerin 0.5 gm 07/07/21 20:51 07/07/21 20:57 Nitroglycerin 1 Gm Ointment TD 07/07/21 20:52 0.5 gm ONCE ONE Administration Sodium Chloride 10 ml 07/07/21 20:20 07/07/21 20:22 Sodium Chloride 0.9% 10ml Syr (Rad Only) IV 07/07/21 20:21 10 ml ONCE ONE Administration Sodium Chloride 50 ml 07/07/21 20:20 07/07/21 20:22 0.9 % Sodium Chloride 50 Ml Vial IV 07/07/21 20:21 50 ml ONCE ONE Administration ORDERS Category Date Time Status Troponin I Q3H Lab 07/07/21 22:45 Ordered Troponin I Q3H Lab 07/08/21 01:45 Ordered - ECG Data Tracing #1 ekg by me nsr, nsiv conduct abn, no st elev (Mike Cook) Extremity Problem HPI - General Mode of Arrival: Ambulatory S
[2021-07-07 19:51] LABS: Basophils # 0.1 K/mm3 (0-0.2); Basophils % 1.2 % (0.1-2.0); Eosinophils # 0.5 K/mm3 (0.0-0.4); Eosinophils % 4.3 % (0.1-12.0); Hematocrit 42.7 % (42.0-52.0); Hemoglobin 14.1 g/dL (14.1-18.0); Lymphocytes # 3.6 K/mm3 (0.7-4.5); Lymphocytes % 34.3 % (10-50); Mean Corpuscular Hemoglobin 30.4 pg (27.0-31.2); Mean Corpuscular Volume 91.9 fl (80-94); Mean Platelet Volume 8.1 fl (7.4-10.4); Monocytes # 0.6 K/mm3 (0.1-1.0); Monocytes % 5.8 % (1.7-9.3); Neutrophils # 5.7 K/mm3 (1.8-7.8); Neutrophils % 54.4 % (37.0-80.0); Platelet Count 386 K/mm3 (142-424); Red Blood Count 4.64 M/mm3 (4.60-6.20); Red Cell Distribution Width 13.8 % (11.5-17.5); White Blood Count 10.5 K/mm3 (4.8-10.8)
[2021-07-07 19:59] LABS: Chloride 105 mmol/L (98-107)
[2021-07-07 20:00] LABS: Potassium 3.8 mmoL/L (3.5-5.1); Sodium 139 mmol/L (136-145)
[2021-07-07 20:02] LABS: Alanine Aminotransferase 15 U/L (12-78); Albumin Level 4.7 g/dl (3.5-5.0); Albumin/Globulin Ratio 1.3 (1.1-1.8); Alkaline Phosphatase 103 U/L (38-126); Anion Gap 13.8 mEq/L (5-15); Aspartate Amino Transferase 25 U/L (17-59); Bilirubin,Total 0.4 mg/dl (0.2-1.3); Blood Urea Nitrogen 21 mg/dl (9-20); Carbon Dioxide 24 mmol/L (22.0-30.0); Creatinine Clearance Estimated 59 mL/min (50-200); Estimated Glomerular Filt Rate 60 ml/min (>60); GFR (African American) 73 ML/MIN (>60); Globulin 3.6 g/dL (1.3-3.2); Total Protein,Serum 8.3 g/dl (6.3-8.2)
[2021-07-07 20:03] LABS: Glucose 101 mg/dl (74-100)
--- NOTE | 2021-07-07 20:04 | CT_ITS ---
PROCEDURE INFORMATION: Exam: CTA Chest With Contrast Exam date and time: 07/07/2021 8:16 PM Age: 70 years old Clinical indication: Sternal or substernal pain and other: Left arm; Additional info: Arm pain TECHNIQUE: Imaging protocol: Computed tomographic angiography of the chest with contrast. 3D rendering (Not supervised by radiologist): MIP and/or 3D reconstructed images were created by the technologist. Radiation optimization: All CT scans at this facility use at least one of these dose optimization techniques: automated exposure control; mA and/or kV adjustment per patient size (includes targeted exams where dose is matched to clinical indication); or iterative reconstruction. Contrast material: ISOVUE; Contrast volume: 70 ml; Contrast route: INTRAVENOUS (IV); COMPARISON: CR XR CHEST PORTABLE 07/07/2021 7:44 PM FINDINGS: Pulmonary arteries: Evaluation of the pulmonary arteries is limited by motion. No large central filling defect. Limited evaluation of distal lobar and segmental branches. Aorta: No aortic aneurysm. No aortic dissection. Other arteries: Extensive calcified atherosclerosis. Mild narrowing at the origin of the celiac artery and bilateral renal arteries. No aneurysm. Lungs: Emphysema. No consolidation. Pleural spaces: No pneumothorax. No pleural effusion. Heart: No cardiomegaly. No pericardial effusion. Lymph nodes: No enlarged lymph nodes. Bones/joints: No acute fracture. Soft tissues: No significant swelling. IMPRESSION: Chronic changes without definite acute process as described above.
[2021-07-07 20:20] LABS: Troponin I < 0.01 ng/ml (0.00-0.034)
--- NOTE | 2021-07-07 20:54 | PC.NURSE ---
House notified of need for room
[2021-07-07 21:51] LABS: Coronavirus 19, PCR Not Detected (NotDetected); Influenza A, PCR Not Detected (NotDetected); Influenza B, PCR Not Detected (NotDetected)
--- NOTE | 2021-07-07 22:41 | PC.NURSE ---
PT ARRIVED TO FLOOR VIA W/C FROM ED W/STAFF [id number]
[2021-07-07 23:12] LABS: Troponin I < 0.01 ng/ml (0.00-0.034)
[2021-07-08] VITALS: BP 126/69; PULSE 65; PULSE 83; RESP 17; TEMP 36.6; O2SAT 95
[2021-07-08 02:25] LABS: Troponin I < 0.01 ng/ml (0.00-0.034)
[2021-07-08 04:00] VITALS: BP 102/58; PULSE 70; PULSE 76; RESP 17; TEMP 36.6; O2SAT 98
[2021-07-08 06:44] LABS: Basophils # 0.1 K/mm3 (0-0.2); Basophils % 0.8 % (0.1-2.0); Eosinophils # 0.3 K/mm3 (0.0-0.4); Hematocrit 38.8 % (42.0-52.0); Lymphocytes # 2.6 K/mm3 (0.7-4.5); Lymphocytes % 30.4 % (10-50); Mean Corpuscular HGB Conc 32.3 g/dL (31.8-35.4); Mean Corpuscular Hemoglobin 29.7 pg (27.0-31.2); Mean Platelet Volume 8.3 fl (7.4-10.4); Monocytes # 0.6 K/mm3 (0.1-1.0); Monocytes % 6.7 % (1.7-9.3); Neutrophils # 4.9 K/mm3 (1.8-7.8); Neutrophils % 58.2 % (37.0-80.0); Platelet Count 320 K/mm3 (142-424); Red Blood Count 4.22 M/mm3 (4.60-6.20); Red Cell Distribution Width 13.8 % (11.5-17.5); White Blood Count 8.4 K/mm3 (4.8-10.8)
[2021-07-08 06:45] LABS: Hemoglobin 12.5 g/dL (14.1-18.0)
[2021-07-08 06:47] LABS: Chloride 106 mmol/L (98-107); Sodium 138 mmol/L (136-145)
[2021-07-08 06:49] LABS: Blood Urea Nitrogen 17 mg/dl (9-20)
[2021-07-08 06:50] LABS: Calcium 8.8 mg/dl (8.4-10.2); Carbon Dioxide 24 mmol/L (22.0-30.0); Chol/HDL Ratio 6.2 (1-3.5); Cholesterol 179 mg/dl (140-200); Creatinine Clearance Estimated 66 mL/min (50-200); Estimated Glomerular Filt Rate 67 ml/min (>60); GFR (African American) 81 ML/MIN (>60); Glucose 102 mg/dl (74-100); HDL Cholesterol 29 mg/dl (40-60); Magnesium 1.8 mg/dl (1.6-2.3); Triglycerides 165 mg/dl (30-150); VLDL Cholesterol 33 mg/dL (0-40)
[2021-07-08 07:01] LABS: Direct LDL Cholesterol 99.38 mg/dL (100-129)
--- NOTE | 2021-07-08 07:03 | HMH.PHAVTE ---
[facility] Pharmacy VTE Monitoring - Patient Demographics Admission date: 07/07/21 Report Date: 07/08/21 Time: 07:03 Allergies/Adverse Reactions: Patient Allergies No Known Allergies Allergy (Verified 06/16/21 13:26) Height: 1.75 m Weight: 72.206 kg Patient Problems: Current Active Problems Left arm pain (Acute) Atypical angina (Acute) Tobacco use (Acute) - VTE Risk Labs: VTE Related Lab Results Hgb 12.5 g/dL (14.1-18.0) L D 07/08/21 06:25 Hct 38.8 % (42.0-52.0) L 07/08/21 06:25 Plt Count 320 K/mm3 (142-424) 07/08/21 06:25 BUN 17 mg/dl (9-20) 07/08/21 06:25 Creatinine 1.10 mg/dl (0.66-1.25) 07/08/21 06:25 Estimated Creat Clear 66 mL/min (50-200) 07/08/21 06:25 Was VTE Risk Assessment Performed: Yes VTE Score: 3 VTE Risk Level: Low Risk - Prophylaxis VTE Prophylaxis Ordered?: Yes Types of VTE Prophylaxis: TEDS Knee High Location of Applied Device: Bilateral Lower Extremeties
--- NOTE | 2021-07-08 07:41 | HMH.PHAINT ---
MEDICATION RECONCILIATION COMPLETED ON PATIENT USING EXTERNAL FILL HISTORY FROM PHARMACY. -AMMON LOPEZ, SERGEYD
[2021-07-08 08:00] VITALS: BP 128/82; PULSE 65; PULSE 70; RESP 20; TEMP 36.6; O2SAT 98
--- NOTE | 2021-07-08 08:00 | CA_ITS ---
APPROVED REPORT EXAM: Comprehensive 2D, Doppler, and color-flow Echocardiogram Tool Adjuster: Daily Up CRT Ht: 5 ft 9 in Wt: 155lbs BSA: 1.85 BP: 182/92 mmHg Indications: COPD, Murmur, Shortness of Breath, Hyperlipidemia, Hypertension/HDD, CA, GERD, hx of drug abuse 2D Dimensions LVOT 1.78 cm (M/F) 1.5-2.5 LA Volume 15.20 mL LA Volume Index 8.20 mL/m2 (M/F) 16-34 M-Mode Dimensions RVDd 2.97 cm (0.9-2.6) LA Diam 2.83 cm (1.9-4.0) LVDd 4.19 cm (3.5-5.7) Ao Diam 3.91 cm (2.0-3.7) LVDs 2.34 cm (3.5-5.7) IVSd 1.31 cm (0.6-1.1) PWd 0.59 cm (0.6-1.1) EF (Teich) 75.80% FS 44.20% EDV (Teich) 78.10 mL TAPSE 1.74 (<1.7) ESV (Teich) 18.90 mL LV Diastology E Decel Time 250.00 (160-240 msec) E/A Ratio 0.69 MED E' 5.00 (< 7 cm/sec) MED A' 10.00 cm/s E'/MED E' Ratio 11.92 (>14) LAT E' 9.20 (<10 cm/sec) LAT A' 12.30 cm/s E/LAT E' Ratio 6.48 (>14) Aortic Valve AO Peak GR. 5.90 mmHg Mitral Valve MV A Velocity 87.00 (40-130 cm/s) E/A Ratio 0.69 MV Decel. Time 250.00 (160-240 ms) Pulmonary Valve PV Peak Velocity 103.00 (50-150 cm/s) Tricuspid Valve TR P. Velocity 247.00 cm/s RAP Estimate 10.00 mmHg RVSP 34.50 mmHg Left Ventricle Left atrium is mildly Left ventricle normal size, mild concentric left ventricle hypertrophy, estimated ejection fraction 55% with no regional wall motion abnormality, grade 1 diastolic dysfunction seen without tissue Doppler evidence of raise left atrial pressure. Right Ventricle Right atrium and right ventricle are mildly enlarged with normal contractility. Aortic Valve Aortic valve is minimally thickened and fibrosed there is no aortic stenosis or aortic insufficiency. Mitral Valve Otherwise grossly normal, there is trace mitral regurgitation. Tricuspid Valve Tricuspid grossly normal, there is trace tricuspid regurgitation, tricuspid regurgitation jet velocity is inadequate for calculation of the right ventricular systolic pressure. Pulmonic Valve Pulmonic valve is poorly visualized. Great Vessels Aortic root is normal size. Inferior vena cava is poorly visualized. Pericardium No significant pericardial effusion noted. Conclusion 1. Mild biatrial normal, normal left ventricular size, mild concentric left ventricular hypertrophy, estimated ejection fraction 55% with no regional wall motion abnormality, grade 1 diastolic dysfunction seen without tissue Doppler evidence of raise left atrial pressure. 2. Mildly enlarged right ventricle with normal contractility. 3. Trace mitral and tricuspid regurgitation. 4. No significant pericardial effusion. 5. Inferior vena cava is poorly visualized. Electronically signed by : Ken Quezada MD 07/08/2021 15:19:14
[2021-07-08 09:58] VITALS: BMI 23.6
--- NOTE | 2021-07-08 10:40 | HMH.CNCARD ---
History of Present Illness Consult date: 07/08/21 Requesting physician: Liang Jones Chief complaint: left arm pain History of present illness: This is a 70-year-old white gentleman who presented to the emergency department with complaints of left arm pain. He states he had left arm pain from just under his left armpit down to his mid left forearm. He states that this was a nerve/aching pain. He states that he attributed this pain in his left arm to his cervical disc disease in his neck. He states that the pain did not radiate and stayed in his left arm. He denies any chest pain or pressure. He states that he has been short of breath for the last several months and does not think he was any more short of breath with the left arm pain that he has been regularly. He states that this is mostly with exertion and improves with rest. He denies any lower extremity edema. He denies any fever, chills, nausea, vomiting, diarrhea, PND or orthopnea. [facility] History I have reviewed the patient's past medical history: Yes Medical History: Reports:: Cancer, Chronic Obstructive Pulmonary Disease (COPD), Gastroesophageal Reflux Disease(GERD), Hyperlipidemia, Hypertension, Lung Disease, Kidney Stones Denies:: Diabetes Mellitus Type 1, Diabetes Mellitus Type 2, Internal Pacemaker, MRSA, Seizures *Have you ever received a pneumonia vaccine?: Yes *Have you received a flu vaccine this season?: Yes Other Medical History: Reports: Arthritis, Liver Disease, Other Other Surgeries: Yes: No Previous Surgery, Appendectomy, Cancer Surgery, Colonoscopy, Other (fusion in back). No: Pacemaker Amputation: No Fractures: No - *Social History Last grade of school completed: High school graduate Smoking Status: Current every day smoker Tobacco Type: cigarettes # Packs/Day (cigarettes): 6 #Yrs smoked (if former smoker): 40 Alcohol Intake: never Alcohol Intake Frequency:: a few times a month Substance Use Type: amphetamines, former substance user, marijuana *Occupational Status:: disabled Housing: apartment Household Members: spouse *Travel in the last 8 weeks: None Family Hx:: Cancer Meds Home Medications Medication Instructions Recorded Confirmed Type calcium polycarbophil 625 mg tablet 1,250 mg PO BID 04/29/20 07/07/21 History albuterol sulfate 90 mcg/actuation 2 puff INHALATION Q6H PRN #8.5 g 01/20/21 07/07/21 Rx aerosol inhaler hydrocodone 10 mg-acetaminophen 1 tab PO Q8H PRN #90 tab 06/16/21 07/07/21 Rx 325 mg tablet gabapentin 800 mg tablet 800 mg PO TID PRN #90 tab 06/20/21 07/07/21 Rx Fluticasone/Vilanterol [Breo 1 puff IH DAILY 07/07/21 07/08/21 History Ellipta] Mesalamine [Mesalamine ER] 1.5 g PO DAILY 07/07/21 07/07/21 History Pantoprazole Sodium 40 mg PO DAILY 07/07/21 07/08/21 History hydroCHLOROthiazide [HCTZ 12.5mg 12.5 mg PO DAILY 07/07/21 07/07/21 History capsule] Amlodipine Besylate/Benazepril 1 each PO DAILY 07/08/21 07/08/21 History [Amlodipine-Benazepril 10-20 mg] Metoclopramide HCl [Metoclopramide 10 mg PO ACHS 07/08/21 07/08/21 History 10mg Tablet] Allergies Allergy/AdvReac Type Severity Reaction Status Date / Time No Known Allergies Allergy Verified 06/16/21 13:26 Exam Vital signs and Labs for Last 24 Hours: Temp Pulse Resp BP Pulse Ox 97.8 F 65 20 128/82 98 07/08/21 08:00 07/08/21 08:00 07/08/21 08:00 07/08/21 08:00 07/08/21 08:00 Laboratory Results - last 24 hr 07/07/21 19:40: WBC 10.5, RBC 4.64, Hgb 14.1, Hct 42.7, MCV 91.9, MCH 30.4, MCHC 33.0, RDW 13.8, Plt Count 386, MPV 8.1, Neut % (Auto) 54.4, Lymph % (Auto) 34.3, [place] % (Auto) 5.8, Eos % (Auto) 4.3, Baso % (Auto) 1.2, Neut # (Auto) 5.7, Lymph # (Auto) 3.6, [place] # (Auto) 0.6, Eos # (Auto) 0.5 H, Baso # (Auto) 0.1 07/07/21 19:40: Sodium 139, Potassium 3.8, Chloride 105, Carbon Dioxide 24, Anion Gap 13.8, BUN 21 H, Creatinine 1.20, Estimated Creat Clear 59, Estimated GFR 60, Est GFR ( Amer) 73, Glucose 101 H, Calcium 9.0,
--- NOTE | 2021-07-08 11:12 | HMH.HPDC ---
General - General Admission date:: 07/07/21 Discharge date: 07/08/21 *Admission Date: 07/07/21 *Chief complaint: Left arm pain *History of present illness: 70-year-old white gentleman who presented to the emergency department with complaints of left arm pain. He states he had left arm pain from just under his left armpit down to his mid left forearm. He states that this was a nerve/aching pain. He states that he attributed this pain in his left arm to his cervical disc disease in his neck. He states that the pain did not radiate and stayed in his left arm. He denies any chest pain or pressure. He states that he has been short of breath for the last several months and does not think he was any more short of breath with the left arm pain that he has been regularly. He states that this is mostly with exertion and improves with rest. He denies any lower extremity edema. He denies any fever, chills, nausea, vomiting, diarrhea, PND or orthopnea. [facility] History I have reviewed the patient's past medical history: Yes Medical History: Reports:: Cancer, Chronic Obstructive Pulmonary Disease (COPD), Gastroesophageal Reflux Disease(GERD), Hyperlipidemia, Hypertension, Lung Disease, Kidney Stones Denies:: Diabetes Mellitus Type 1, Diabetes Mellitus Type 2, Internal Pacemaker, MRSA, Seizures *Have you ever received a pneumonia vaccine?: Yes *Have you received a flu vaccine this season?: Yes Other Medical History: Reports: Arthritis, Liver Disease, Other Other Surgeries: Yes: No Previous Surgery, Appendectomy, Cancer Surgery, Colonoscopy, Other (fusion in back). No: Pacemaker Amputation: No Fractures: No - *Social History Last grade of school completed: High school graduate Smoking Status: Current every day smoker Tobacco Type: cigarettes # Packs/Day (cigarettes): 6 #Yrs smoked (if former smoker): 40 Alcohol Intake: never Alcohol Intake Frequency:: a few times a month Substance Use Type: amphetamines, former substance user, marijuana *Occupational Status:: disabled Housing: apartment Household Members: spouse *Travel in the last 8 weeks: None Family Hx:: Cancer Review of Systems - Review of Systems Review of systems:: pertinent systems reviewed and negative unless documented below - Constitutional Denies chills, Denies fatigue - Eyes Denies blurry vision, Denies double vision - ENT Denies poor balance, Denies dizziness - *Cardiovascular Reports shortness of breath, Reports shortness of breath with activity, Denies chest pain - *Respiratory Reports shortness of breath, Reports shortness of breath with activity, Denies chest congestion - *Gastrointestinal Denies abdominal pain, Denies change in stools - *Musculoskeletal Denies abnormal walking, Denies decreased muscle mass Comments: Left arm pain, mid upper arm to mid lower arm - Integumentary/Breasts Denies bleeding lesions, Denies yellowing of the skin - *Neurologic Denies abnormal speech, Denies localized weakness - Psychiatric Denies abnormal sleep pattern, Denies hearing things others do not hear - Endocrine Denies rapid, pounding, or irregular heartbeat, Denies increased thirst - Hematologic/Lymphatic Denies easy bruising, Denies enlarged lymph nodes - Allergic/Immunologic Denies seasonal runny nose, Denies tongue swelling Exam Vital signs and Labs for Last 24 Hours: Temp Pulse Resp BP Pulse Ox 97.8 F 65 20 128/82 98 07/08/21 08:00 07/08/21 08:00 07/08/21 08:00 07/08/21 08:00 07/08/21 08:00 Laboratory Results - last 24 hr 07/07/21 19:40: WBC 10.5, RBC 4.64, Hgb 14.1, Hct 42.7, MCV 91.9, MCH 30.4, MCHC 33.0, RDW 13.8, Plt Count 386, MPV 8.1, Neut % (Auto) 54.4, Lymph % (Auto) 34.3, [place] % (Auto) 5.8, Eos % (Auto) 4.3, Baso % (Auto) 1.2, Neut # (Auto) 5.7, Lymph # (Auto) 3.6, [place] # (Auto) 0.6, Eos # (Auto) 0.5 H, Baso # (Auto) 0.1 07/07/21 19:40: Sodium 139, Potassium 3.8, Chloride 105, Carbon Dioxide 24, Anion Gap 13.8, BUN 2
== END 2021-07-08 12:25 | disposition home or self-care (01) ==
LOC: ER 19:58 → 2ND 21:14
PROVIDERS: Admitting Provider Emergency Medicine; Emergency Provider Emergency Medicine; PCP Family Medicine; Visit Provider Emergency Medicine
DX: I20.8 Other forms of angina pectoris (principal); Z20.822 Contact with and (suspected) exposure to COVID-19; Z79.899 Other long term (current) drug therapy; J44.9 Chronic obstructive pulmonary disease, unspecified; K21.9 Gastro-esophageal reflux disease without esophagitis; I10 Essential (primary) hypertension; E78.5 Hyperlipidemia, unspecified; F17.210 Nicotine dependence, cigarettes, uncomplicated; R06.09 Other forms of dyspnea
CPT/HCPCS: G0378; 36415; 71045; 71275; 80048; 80053; 80061; 83735; 84484; 85025; 93005; 93306; 99285; C9803; Q9967; U0003; U0005

== ENCOUNTER → 2021-07-22 07:02 | Outpatient (CLI) | payer MEDICARE, MEDICAID, SELFPAY ==
--- NOTE | 2021-07-22 | CA_ITS ---
APPROVED REPORT Exam: Pharmacologic Technologist: Nancy Perez, Ht: 5 ft 8 in Wt: 159 lbs BSA: 1.85 m2 HR: 59 bpm BP: 148/69 mmHg Rhythm: SINUS JO, ST-T ABNS IN III AND AVF Medical History Medical History: HTN, , Hyperlipidemia Medications: Aspirin,,,,, Gabapentin,,,,, Pantoprazole,,,,, Atorvastatin,,,,, HCTZ,,,,, Albuterol,,,,, BisOPROLOL,,,,, Reglan,,,,, LoTREL,,,,, ViCODEN,,,,, Allergies: No known drug allergies Cardiac Risk Factors: HTN, Hyperlipidemia, Smoking Stress Test Details Test: REFUGIO HR Resting HR: 63 bpm Max Heart Rate (APMHR): 152.075622 bpm Max HR Achieved: 79 bpm Target HR (85% APMHR): 129.103050 bpm % of APMHR: 51.97 Recovery HR: 71 bpm BP Resting BP: 148/69 mmHg Max BP: 148/69 mmHg Recovery BP: 124.0/74.0 mmHg ECG Resting ECG: SINUS JO, ST-T ABNS IN III AND AVF Clinical Exercise duration: 04:12 min Highest Stage Achieved: Stress ECG Conclusion PT HAD NO SYMPTOMS. NO SIGNIFICANT CHANGES. UNREMARKABLE LEXISCAN STRESS. MYOVIEW IMAGES REPORTED SEPARATELY. Test Summary RECOVERY 03:29 . . 71 . 124/ 74 . . Stage 1 01:00 . . 74 . . . . Stage 2 01:00 . . 77 . . . . Stage 3 01:00 . . 78 . 130/ 73 . . Stage 4 01:00 . . 74 . 134/ 75 . . Stage 4 01:12 . . 75 . 117/ 68 . Stop exercise at 04:12 RECOVERY 01:00 . . 74 . . . . RECOVERY 02:00 . . 72 . 133/ 72 . . RECOVERY 03:00 . . 73 . 124/ 74 . . RECOVERY 03:29 . . 71 . 124/ 74 . . Electronically signed by : Ken Quezada MD 07/22/2021 11:19:14
--- NOTE | 2021-07-22 07:15 | NM_ITS ---
APPROVED REPORT Exam: Nuclear Stress Test Indication: HTN, HYPERLIPIDEMIA, TOB USE, SOB, FATIGUE, LT ARM PAIN Patient Location: Outpatient Stress Tech: Nancy Perez [place] Tech:Jannie CaceresKATHERIN solis RT (R)(N)(M) Ht: 5 ft 9 in Wt: 160 lbs HR: 63 bpm BP: 148/69 mmHg BSA: 1.88 m2 BMI: 23.6 Procedure: Patient received a 0.4 mg of intravenous Lexiscan, resting heart rate 63 bpm, resting blood pressure 148/69 mmHg, with Lexiscan maximum heart rate achived was 78 bpm which is Less than 85 % of the maximum predicted heart rate and blood pressure was 130/73 mmHg. With Lexiscan, patient denied any complaint of chest pain. Electrocardiogram Resting electrocardiogram showed sinus rhythm, with Lexiscan there is less than 1.[address] segment depression noted from the baseline EKG. The EKG portion of the Lexiscan is nondiagnostic. Cardiac Stress and Resting SPECT Images: Cardiac Stress and Resting SPECT images were obtained using technetium 99m Myoview 32.1 mCi stress and 10.10 mCi at rest. Gated SPECT for analysis of segmental wall motion and calculation of the ejection fraction also done. Prone images were also obtained. Cardiac stress and rest SPECT may show uniform myocardial activity without segmental perfusion abnormality, computer derived ejection fraction is 54% with no regional wall motion abnormality, right ventricle is normal size and contractility. Conclusion: 1. The EKG portion of the Lexiscan is nondiagnostic. 2. No scintigraphic evidence of reversible ischemia seen, computer derived ejection fraction is 54% with no regional wall motion abnormality, right ventricle is normal size and contractility. 3. Normal Lexiscan Myoview study. Electronically signed by : Ken Quezada MD 07/22/2021 11:23:18
== END ==
PROVIDERS: PCP Family Medicine; Visit Provider Nurse Practitioner Family
DX: I20.8 Other forms of angina pectoris (principal)
CPT/HCPCS: 78452; 93017; A9502; J2785

== ENCOUNTER 2021-11-24 11:40 | Emergency (ER) | payer MEDICARE, MEDICAID, SELFPAY ==
[2021-11-24 11:47] VITALS: BP 165/106; PULSE 91; RESP 18; TEMP 36.6; O2SAT 99; BMI 22.6
--- NOTE | 2021-11-24 11:58 | PC.NURSE ---
ER MD notified of pt c/o L flank pain gave orders for Ketorlac 30 mg IV Once, Morphine 4mg IV once, Zofran 4mg IV once
[2021-11-24 12:01] VITALS: BP 162/106; PULSE 85; O2SAT 100
[2021-11-24 12:03] LABS: Microscopic, Urine URINE MICROSCOPIC (MICROSCOPIC)
--- NOTE | 2021-11-24 12:05 | CT_ITS ---
FINAL REPORT CLINICAL HISTORY: left flank pain FINDINGS: Axial CT images of the abdomen and pelvis were obtained without intravenous contrast. Coronal reformatted images were also obtained.This study was performed with techniques to keep radiation doses as low as reasonably achievable (ALARA). Individualized dose reduction techniques using automated exposure control or adjustment of mA and/or kV according to the patient's size were employed. Abdomen: There is mild scarring in the right lung base. There is no evidence of renal stone or hydronephrosis. The gallbladder is present. The liver, spleen and pancreas have an unremarkable, unenhanced appearance. Mild adrenal gland enlargement favors hyperplasia. No mass or adenopathy is seen. No inflammatory process is identified. There is dense vascular calcification. Pelvis: Images of the pelvis reveal no evidence of ureteral dilation or ureteral stone.No mass or abnormal fluid collection is identified. There are postoperative and degenerative changes in the lumbar spine. There is diverticulosis of the sigmoid colon. There are small bilateral inguinal hernias containing fat. IMPRESSION: No renal or ureteral stone, or hydronephrosis. Diverticulosis without evidence of diverticulitis. Reviewed, Interpreted and Dictated by Aftab Weeks III, MD Transcribed by Rosendo Gutiérrez Authenticated and [facility]
[2021-11-24 12:07] LABS: Basophils # 0.1 K/mm3 (0-0.2); Basophils % 1.1 % (0.1-2.0); Eosinophils # 0.4 K/mm3 (0.0-0.4); Eosinophils % 3.4 % (0.1-12.0); Hematocrit 47.8 % (42.0-52.0); Hemoglobin 15.5 g/dL (14.1-18.0); Lymphocytes % 19.1 % (10-50); Mean Corpuscular HGB Conc 32.3 g/dL (31.8-35.4); Mean Corpuscular Hemoglobin 29.9 pg (27.0-31.2); Mean Corpuscular Volume 92.3 fl (80-94); Mean Platelet Volume 8.2 fl (7.4-10.4); Monocytes # 0.7 K/mm3 (0.1-1.0); Monocytes % 6.2 % (1.7-9.3); Neutrophils # 7.5 K/mm3 (1.8-7.8); Neutrophils % 70.2 % (37.0-80.0); Platelet Count 408 K/mm3 (142-424); Red Blood Count 5.18 M/mm3 (4.60-6.20); Red Cell Distribution Width 14.5 % (11.5-17.5); White Blood Count 10.7 K/mm3 (4.8-10.8)
[2021-11-24 12:11] LABS: Appearance,Urine CLEAR (Clear); Bilirubin,Urine Negative (Negative); Blood, Urine Negative (Negative); Color,Urine YELLOW (Yellow); Glucose,Urine (UA) Negative (Negative); Ketones,Urine Negative (Negative); Leukocyte Esterase,Urine Negative (Negative); Nitrate,Urine Negative (Negative); PH,Urine 5.5 (5.0-8.5); Protein,Urine Negative (Negative); Specific Gravity, Urine >= 1.030 (1.005-1.030); Urobilinogen,Urine 0.2 EU/dl (0.2)
[2021-11-24 12:13] LABS: Chloride 100 mmol/L (98-107); Sodium 140 mmol/L (136-145)
[2021-11-24 12:14] LABS: Potassium 4.4 mmoL/L (3.5-5.1)
[2021-11-24 12:16] LABS: Alanine Aminotransferase 22 U/L (12-78); Alkaline Phosphatase 115 U/L (38-126); Anion Gap 14.4 mEq/L (5-15); Aspartate Amino Transferase 33 U/L (17-59); Bilirubin,Total 0.2 mg/dl (0.2-1.3); Blood Urea Nitrogen 16 mg/dl (9-20); Carbon Dioxide 30 mmol/L (22.0-30.0); Creatinine Clearance Estimated 58 mL/min (50-200); Estimated Glomerular Filt Rate 60 ml/min (>60); GFR (African American) 73 ML/MIN (>60)
[2021-11-24 12:17] LABS: Albumin Level 5.1 g/dl (3.5-5.0); Albumin/Globulin Ratio 1.3 (1.1-1.8); Calcium 10.4 mg/dl (8.4-10.2); Glucose 121 mg/dl (74-100); Total Protein,Serum 9.1 g/dl (6.3-8.2)
[2021-11-24 12:22] LABS: Bacteria,Urine Trace /lpf; Squamous Epithelial Cell,Urine Occasional #/hpf (0-5)
[2021-11-24 12:31] VITALS: BP 168/116; PULSE 67; O2SAT 99
--- NOTE | 2021-11-24 12:49 | HMH.EDGENADL ---
ED Disposition Clinical Impression: Low back pain Disposition: Home, Self-Care Condition on Discharge: Good Instructions: DI for Low Back Pain, DI for Acute Pain -- Adult Additional Instructions: You were evaluated in the emergency department today for low back pain. At this time, we feel that this is likely related to a musculoskeletal strain/sprain. 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 Take them as prescribed. Follow-up with your primary care provider over the next 48 hours. Return to the emergency department for any new or worsening symptoms. Prescriptions: Lidocaine [Lidoderm 5% transdermal patch] 1 each TP Q24H #7 patch Transmission Status: Received by [facility] methocarbamoL [Methocarbamol 500mg Tablet] 500 mg PO TIDP PRN #20 tab PRN Reason: Moderate To Severe Pain Transmission Status: Received by [facility] Naproxen [Naproxen 500mg tab] 500 mg PO BID #20 tab Transmission Status: Received by [facility] Referrals: Murray Barkley MD [Primary Care Provider] - - Critical Care Critical Care Time: No Attestation: On 11/24/21, the high probability of a clinically significant, sudden or life threatening deterioration of the following system(s) required my full and direct attention, intervention and personal management. The time I documented below is in addition to time spent performing reported procedures but includes the following listed in this critical care notation. Medical Decision Making - Kevin Inquiry Pt receiving controlled substance: No Vital Signs: 11/24/21 11:47 11/24/21 12:01 11/24/21 12:31 Temperature 97.8 F Temperature Source Oral Pulse Rate 85 67 Pulse Rate [Left Radial] 91 H Respiratory Rate 18 Blood Pressure 162/106 H 168/116 H Blood Pressure [Right Arm] 165/106 H Blood Pressure Mean 111 133 Blood Pressure Mean [Right Arm] 125 02 Sat by Pulse Oximetry 99 100 99 Oxygen Delivery Method Room Air 11/24/21 13:10 11/24/21 13:30 Temperature Temperature Source Pulse Rate 75 71 Pulse Rate [Left Radial] Respiratory Rate Blood Pressure 169/111 H 157/101 H Blood Pressure [Right Arm] Blood Pressure Mean 132 119 Blood Pressure Mean [Right Arm] 02 Sat by Pulse Oximetry 99 99 Oxygen Delivery Method - Lab Data Lab Results 11/24/21 11:53: Urine Color Yellow, Urine Appearance Clear, Urine pH 5.5, Ur Specific [place] >= 1.030, Urine Protein Negative, Urine Glucose (UA) Negative, Urine Ketones Negative, Urine Blood Negative, Urine Nitrate Negative, Urine Bilirubin Negative, Urine Urobilinogen 0.2, Ur Leukocyte Esterase Negative, Urine RBC None, Urine WBC None, Ur Squamous Epith Cells Occasional, Urine Bacteria Trace 11/24/21 11:53: WBC 10.7, RBC 5.18, Hgb 15.5, Hct 47.8, MCV 92.3, MCH 29.9, MCHC 32.3, RDW 14.5, Plt Count 408, MPV 8.2, Neut % (Auto) 70.2, Lymph % (Auto) 19.1, [place] % (Auto) 6.2, Eos % (Auto) 3.4, Baso % (Auto) 1.1, Neut # (Auto) 7.5, Lymph # (Auto) 2.0, [facility] # (Auto) 0.7, Eos # (Auto) 0.4, Baso # (Auto) 0.1 11/24/21 11:53: Sodium 140, Potassium 4.4, Chloride 100, Carbon Dioxide 30, Anion Gap 14.4, BUN 16, Creatinine 1.20, Estimated Creat Clear 58, Estimated GFR 60, Est GFR ( Amer) 73, Glucose 121 H, Calcium 10.4 H, Total Bilirubin 0.2, AST 33, ALT 22, Alkaline Phosphatase 115, Total Protein 9.1 H, Albumin 5.1 H, Globulin 4.0 H, Albumin/Globulin Ratio 1.3 Result diagrams: 11/24/21 11:53 11/24/21 11:53 Orders (Tests/Meds): ED MEDICATIONS Generic Name Dose Route Start Last Admin Trade Name Freq PRN Reason Stop Dose Admin Lidocaine 1 each 11/24/21 13:30 11/24/21 13:33 Lidocaine 5% Transdermal Patch TP 12/24/21 13:29 1 each Q24H TAYLA Administration Methocarbamol 500 mg 11/24/21 13:45 11/24/21 13:33 Methocarbamol 500mg Tablet PO 12/24/21 13:44 500 mg BID TAYLA Administration Sodium Chloride 10 ml 11/24/21 11:58 Sodium Chlor
[2021-11-24 13:10] VITALS: BP 169/111; PULSE 75; O2SAT 99
[2021-11-24 13:30] VITALS: BP 157/101; PULSE 71; O2SAT 99
[2021-11-24 16:00] VITALS: BP 132/74; PULSE 78; RESP 16; TEMP 36.6; O2SAT 97
== END 2021-11-24 16:00 | disposition home or self-care (01) ==
PROVIDERS: Emergency Provider Emergency Medicine; PCP Family Medicine
DX: K51.90 Ulcerative colitis, unspecified, without complications (principal); M54.50 Low back pain, unspecified; I10 Essential (primary) hypertension; J98.4 Other disorders of lung; K21.9 Gastro-esophageal reflux disease without esophagitis; J44.9 Chronic obstructive pulmonary disease, unspecified; M19.90 Unspecified osteoarthritis, unspecified site; F17.210 Nicotine dependence, cigarettes, uncomplicated; Z79.1 Long term (current) use of non-steroidal anti-inflammatories (NSAID); Z79.51 Long term (current) use of inhaled steroids; Z79.82 Long term (current) use of aspirin; Z79.899 Other long term (current) drug therapy; Z80.9 Family history of malignant neoplasm, unspecified
CPT/HCPCS: 74176; 80053; 81001; 85025; 96374; 96375; 96376; 99285; J2405

== ENCOUNTER 2022-09-07 19:03 | Emergency (ER) | payer MEDICARE, MEDICAID, SELFPAY ==
[2022-09-07] VITALS (10 sets, daily range): BP systolic 132–170; BP diastolic 74–104; PULSE 77–91; RESP 11–20; TEMP 36.6–37.1; O2SAT 92–98; BMI 22.8
--- NOTE | 2022-09-07 19:19 | PC.NURSE ---
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
[2022-09-07 19:30] LABS: Basophils % 0.1 % (0.1-2.0); Eosinophils % 0.2 % (0.1-12.0); Hematocrit 46.1 % (42.0-52.0); Hemoglobin 14.9 g/dL (14.1-18.0); Lymphocytes # 1.2 K/mm3 (0.7-4.5); Lymphocytes % 6.7 % (10-50); Mean Corpuscular HGB Conc 32.3 g/dL (31.8-35.4); Mean Corpuscular Hemoglobin 28.8 pg (27.0-31.2); Mean Corpuscular Volume 89.1 fl (80-94); Mean Platelet Volume 8.2 fl (7.4-10.4); Monocytes # 0.8 K/mm3 (0.1-1.0); Monocytes % 4.4 % (1.7-9.3); Neutrophils # 16.3 K/mm3 (1.8-7.8); Neutrophils % 88.6 % (37.0-80.0); Platelet Count 523 K/mm3 (142-424); Red Blood Count 5.18 M/mm3 (4.60-6.20); Red Cell Distribution Width 14.5 % (11.5-17.5); White Blood Count 18.4 K/mm3 (4.8-10.8)
--- NOTE | 2022-09-07 19:34 | PC.NURSE ---
Dr. Kohli at [facility]
[2022-09-07 19:36] LABS: Chloride 91 mmol/L (98-107); Sodium 133 mmol/L (136-145)
--- NOTE | 2022-09-07 19:36 | CT_ITS ---
PROCEDURE INFORMATION: Exam: CT Abdomen And Pelvis With Contrast Exam date and time: 09/07/2022 8:10 PM Age: 71 years old Clinical indication: Other: Distention; Abdominal pain; Additional info: Rlq pain, distention TECHNIQUE: Imaging protocol: Computed tomography of the abdomen and pelvis with contrast. Radiation optimization: All CT scans at this facility use at least one of these dose optimization techniques: automated exposure control; mA and/or kV adjustment per patient size (includes targeted exams where dose is matched to clinical indication); or iterative reconstruction. Contrast material: ISOVUE; Contrast volume: 75 ml; Contrast route: IV; REPORTING DATA: Count of CT and Cardiac NM exams in prior 12 months: This patient has received [address] and 0 known cardiac nuclear medicine studies in the 12 months prior to the current study. COMPARISON: CT ABDOMEN PELVIS WO CON 11/24/2021 12:13 PM FINDINGS: Lungs: There has developed mild subsegmental atelectasis in the right lower lobe. Liver: Normal. No mass. Gallbladder and bile ducts: Normal. No calcified stones. No ductal dilation. Pancreas: Normal. No ductal dilation. Spleen: Normal. No splenomegaly. Adrenal glands: Normal. No mass. Kidneys and ureters: Normal. No hydronephrosis. Stomach and bowel: There is significant wall thickening mucosal enhancement throughout the distal ileum compatible with enteritis. Proximal to this, small bowel loops appear mildly to moderately distended and filled with fluid and gas. Fluid also noted throughout the colon to the level of the rectum. Appendix: A normal appendix is not visualized. No findings highly suggestive of appendicitis. Intraperitoneal space: Unremarkable. No free air. No significant fluid collection. Vasculature: Dense atherosclerotic calcification and mural thrombus noted throughout the aorta. No evidence of aortic aneurysm or dissection. There is mild stenosis of the origin of the celiac, mesenteric and renal arteries. No evidence of arterial occlusion Lymph nodes: Unremarkable. No enlarged lymph nodes. Urinary bladder: Unremarkable as visualized. Reproductive: Unremarkable as visualized. Bones/joints: There is mild levoscoliosis of the lumbar spine. Severe degenerative disc changes noted throughout the lumbar spine. Orthopedic hardware produces posterior fusion of the lumbosacral junction. Soft tissues: Unremarkable. IMPRESSION: 1. Findings suggesting significant distal ileitis with proximal small bowel distention which may reflect ileus or partial obstruction. Severe infectious ileitis is favored based on clinical information. Given severe atherosclerotic changes, ischemic bowel would be of consideration in a patient this age as well, although considered less likely based on the presence of diffuse mucosal enhancement throughout the affected portion of small bowel. 2. While no findings highly suggestive of appendicitis are evident, a normal appendix is not visualized
[2022-09-07 19:37] LABS: Potassium 3.4 mmoL/L (3.5-5.1)
[2022-09-07 19:39] LABS: Alanine Aminotransferase 35 U/L (12-78); Albumin Level 4.6 g/dl (3.5-5.0); Albumin/Globulin Ratio 1.1 (1.1-1.8); Alkaline Phosphatase 131 U/L (38-126); Anion Gap 24.4 mEq/L (5-15); Aspartate Amino Transferase 27 U/L (17-59); Bilirubin,Total 0.5 mg/dl (0.2-1.3); Blood Urea Nitrogen 48 mg/dl (9-20); Carbon Dioxide 21 mmol/L (22.0-30.0); Creatinine Clearance Estimated 32 mL/min (50-200); Estimated Glomerular Filt Rate 30 ml/min (>60); GFR (African American) 36 ML/MIN (>60); Globulin 4.3 g/dL (1.3-3.2); Glucose 152 mg/dl (74-100); Lactic Acid 1.4 mmol/L (0.7-2.1); MANUAL DIFFERENTIAL MANUAL DIFFERENTIAL (MANUAL DIFF); Total Protein,Serum 8.9 g/dl (6.3-8.2)
--- NOTE | 2022-09-07 20:01 | HMH.EDGENADL ---
Discharge Plan Disposition Patient Disposition: Xfer Short-Term Hosp Chief Complaint: Abdominal Pain Prescriptions Prescriptions: No Action calcium polycarbophil [Fiber (calcium polycarbophil)] 625 mg tablet 1,250 mg PO BID albuterol sulfate 90 mcg/actuation HFA aerosol inhaler 2 puff INHALATION Q6H PRN (Reason: shortness of breath or wheezing) Qty: 8.5 10RF hydrocodone-acetaminophen 10-325 mg tablet 1 tab PO Q8H PRN (Reason: pain) Qty: 90 0RF gabapentin 800 mg tablet 800 mg PO TID PRN (Reason: pain) Qty: 90 5RF mesalamine 0.375 gram capsule,extended release 24hr 1.5 g PO DAILY Qty: 120 6RF fluticasone furoate-vilanterol 1 EACH blister with device 1 puff IH DAILY metoclopramide HCl 10 MG tablet 10 mg PO ACHS atorvastatin 20 MG tablet 20 mg PO HS aspirin 81 MG tablet,delayed release (DR/EC) 81 mg PO DAILY bisoprolol fumarate 5 MG tablet 5 mg PO DAILY pantoprazole 40 mg tablet,delayed release (DR/EC) See Rx Instructions .ROUTE .COMPLEX Rx Instructions: TAKE ONE TABLET BY MOUTH EVERY DAY FOR GERD lidocaine 1 EACH adhesive patch,medicated 1 each TP Q24H nicotine 21 mg/24 hr patch 24 hour 1 patch TD DAILY hydrochlorothiazide 12.5 mg capsule See Rx Instructions .ROUTE .COMPLEX Rx Instructions: TAKE 1 CAPSULE BY MOUTH EVERY DAY naproxen 500 MG tablet 500 mg PO BID amlodipine-benazepril 10-20 mg capsule See Rx Instructions .ROUTE .COMPLEX Rx Instructions: TAKE 1 CAPSULE BY MOUTH ONCE DAILY methocarbamol 500 MG tablet 500 mg PO TIDP PRN (Reason: Moderate To Severe Pain) Qty: 20 0RF Referrals Follow up/Referrals: Murray Barkley MD [Primary Care Provider] - See instructions Clinical Impressions Clinical Impression: ARELY (acute kidney injury), Acute abdomen, Leukocytosis, Ileitis Discharge ED Provider: Robert (ZACK)Liang General Adult HPI <Андрей Kohli DO - Last Filed: 09/07/22 20:06> General Chief complaint: Abdominal Pain Stated complaint: Abdominal pain Time Seen by Provider: 09/07/22 19:35 Mode of Arrival: EMS Source of Information: Patient Limitations: No Limitations Description of Symptoms (Recalled from ER Triage Doc. by RN): Patient presents to ED via EMS with complaints of RLQ pain and N/V/D x 3 days. Hx. of Crohns and UC. Hx of Appendectomy. Patient reports he is not able to pass gas. Also states he has had diarrhea denies any blood in stool. 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 History of Present Illness HPI narrative: 71yo M presents to the ER via EMS stating right lower quadrant pain x3 days. Reports nausea/vomit/diarrhea. Reports a history of Crohn's and ulcerative colitis. Status post appendectomy. Reports his abdomen feels distended. Reports he has not having normal bowel movements. Reports scant diarrhea but denies any blood. Denies fever. Related Data Home Medications Medication Instructions Recorded Confirmed calcium polycarbophil 625 mg 1,250 mg PO BID Supplement 04/29/20 09/07/22 tablet (Fiber (calcium polycarbophil)) fluticasone furoate 200 1 puff inhalation DAILY Asthma 07/07/21 09/07/22 mcg-vilanterol 25 mcg/dose inhalation powder metoclopramide HCl 10 mg tablet 10 mg PO ACHS Nausea & vomiting 07/08/21 09/07/22 amlodipine 10 mg-benazepril 20 mg See Rx Instructions .Route 09/07/22 09/07/22 capsule .COMPLEX Hypertension aspirin 81 mg tablet,delayed 81 mg PO DAILY heart health 09/07/22 09/07/22 release atorvastatin 20 mg tablet 20 mg PO HS High cholesterol 09/07/22 09/07/22 bisoprolol fumarate 5 mg tablet 5 mg PO DAILY Hypertension 09/07/22 09/07/22 hydrochlorothiazide 12.5 mg capsule See Rx Instructions .Route 09/07/22 09/07/22 .COMPLEX Hypertension lidocaine 5 % topical patch 1 each TP Q24H Pain 09/07/22 09/07/22 naproxen 500 mg tablet 500 mg PO BID Pain 09/07/22 09/07/22 nicotine 21 mg/24 hr daily 1 patch transdermal DAILY nicotine 09/07/22 09/07/22 kai
--- NOTE | 2022-09-07 20:11 | PC.NURSE ---
Pt gone to CT
--- NOTE | 2022-09-07 20:15 | PC.NURSE ---
Pt back from CT
[2022-09-07 20:21] LABS: Lymphocytes % 7 % (10-50); Monocytes % 6 % (2-9); Neutrophils % 87 % (42-76); Platelet Estimate Slight Increase; RBC Morphology Normal; Total Cells Counted 100
--- NOTE | 2022-09-07 20:21 | PC.NURSE ---
Pt given urinal and made aware we need a urine sample
--- NOTE | 2022-09-07 21:20 | PC.NURSE ---
Rounded on pt. Urine sample collected. No other needs at this time.
[2022-09-07 21:22] LABS: Microscopic, Urine URINE MICROSCOPIC (MICROSCOPIC)
[2022-09-07 21:27] LABS: Appearance,Urine CLEAR (Clear); Blood, Urine 2+ (Negative); Color,Urine YELLOW (Yellow); Glucose,Urine (UA) Negative (Negative); Ketones,Urine TRACE (Negative); Leukocyte Esterase,Urine Negative (Negative); Nitrate,Urine Negative (Negative); PH,Urine 5.5 (5.0-8.5); Protein,Urine 2+ (Negative); Urobilinogen,Urine 0.2 EU/dl (0.2)
[2022-09-07 21:30] LABS: Bilirubin,Urine 1+ (Negative)
[2022-09-07 21:54] LABS: C-Reactive Protein 311.8 mg/L (0-4)
--- NOTE | 2022-09-07 21:54 | PC.NURSE ---
Dr. Jones at
[2022-09-07 21:57] LABS: RBC,Urine Occasional #/hpf (0-3); Squamous Epithelial Cell,Urine Occasional #/hpf (0-5)
[2022-09-07 21:58] LABS: Amorphous Sediment,Urine Trace /lpf
--- NOTE | 2022-09-07 22:01 | PC.NURSE ---
Spoke with transfer center. Advised they would call back.
[2022-09-07 22:08] LABS: Procalcitonin 0.593 ng/mL (0.0-2.0)
--- NOTE | 2022-09-07 22:13 | PC.NURSE ---
Dr. Jones speaking with Dr. Darby with [facility]
[2022-09-07 22:16] LABS: Erythrocyte Sedimentation Rate 19 mm/hr (0-20)
--- NOTE | 2022-09-07 22:21 | PC.NURSE ---
Pt placed on wait list at per Dr. Darby
--- NOTE | 2022-09-07 22:21 | PC.NURSE ---
[facility]
--- NOTE | 2022-09-07 22:26 | PC.NURSE ---
Waiting for call back from Dr. Meeks with [facility]
--- NOTE | 2022-09-07 22:27 | PC.NURSE ---
Dr. Ramirez paged
--- NOTE | 2022-09-07 22:33 | PC.NURSE ---
Dr. Jones speaking with Dr. Ramirez
--- NOTE | 2022-09-07 22:40 | PC.NURSE ---
Dr. Jones speaking with Dr. Meeks at [facility]
--- NOTE | 2022-09-07 22:50 | PC.NURSE ---
Dr. Jones speaking with Hospitalist at [place]
--- NOTE | 2022-09-07 22:52 | PC.NURSE ---
Pt accepted to [place] by Dr. Wild. Waiting for a bed assignment.
--- NOTE | 2022-09-07 23:38 | PC.NURSE ---
Updated pt , Shabana, that he would be getting transferred to [place].
--- NOTE | 2022-09-07 23:40 | PC.NURSE ---
Insurance pre-auth faxed. Received report that it went through.
[2022-09-08] VITALS: BP 137/91; PULSE 82; RESP 14; O2SAT 96
[2022-09-08 00:30] VITALS: BP 129/83; PULSE 81; RESP 12; O2SAT 96
--- NOTE | 2022-09-08 00:56 | PC.NURSE ---
report called to Pat EUBANKS
[2022-09-08 02:02] VITALS: BP 129/83; PULSE 81; RESP 16; TEMP 37.1; O2SAT 95
== END 2022-09-08 02:15 | disposition short-term general hospital (02) ==
PROVIDERS: Family Medicine; Emergency Provider Emergency Medicine; PCP Family Medicine
DX: R10.31 Right lower quadrant pain (principal); K56.609 Unspecified intestinal obstruction, unspecified as to partial versus complete obstruction; N17.9 Acute kidney failure, unspecified; F17.210 Nicotine dependence, cigarettes, uncomplicated
CPT/HCPCS: 74177; 80053; 81001; 83605; 84145; 85007; 85025; 85651; 86140; 87040; 96361; 96365; 96375; 99291; J2405; Q9967

== ENCOUNTER → 2023-03-16 09:02 | Outpatient (CLI) | payer MEDICARE, SELFPAY ==
[2023-03-16 18:55] LABS: Barbiturates Screen,Urine Negative ng/ml (<200)
[2023-03-16 18:56] LABS: Benzodiazepines Screen,Urine Negative ng/ml (<200)
[2023-03-16 18:57] LABS: Cannabinoid Screen,Urine Negative ng/ml (<50)
[2023-03-16 18:58] LABS: Cocaine Screen,Urine Negative ng/ml (<300)
[2023-03-16 18:59] LABS: Methadone Screen,Urine Negative ng/ml (<300); Opiate Screen,Urine Negative ng/ml (<300)
[2023-03-16 19:00] LABS: Phencyclidine Screen,Urine Negative ng/ml (<25)
[2023-03-21 15:15] LABS: Amphetamine Positive (.); Amphetamine (GC/MS) >3000 ng/mL (Cutoff=500); Amphetamines Positive (.); Methamphetamine Positive (.); Methamphetamine (GC/MS) >3000 ng/mL (Cutoff=500)
== END ==
PROVIDERS: PCP Family Medicine; Visit Provider Family Medicine
DX: Z79.899 Other long term (current) drug therapy (principal)
CPT/HCPCS: 80305; 80324

== ENCOUNTER 2023-05-25 10:23 | Emergency (ER) | payer MEDICARE, SELFPAY ==
[2023-05-25 10:30] VITALS: BP 139/88; PULSE 102; RESP 18; TEMP 36.4; O2SAT 99; BMI 22.9
[2023-05-25 10:32] VITALS: PULSE 93; O2SAT 98
--- NOTE | 2023-05-25 10:47 | CT_ITS ---
FINAL REPORT TECHNIQUE: After the administration of IV contrast, axial images through the lumbar spine was performed by computed tomography. Sagittal and coronal reformatted images were obtained and reviewed. This study was performed with techniques to keep radiation doses as low as reasonably achievable (ALARA). Individualized dose reduction techniques using automated exposure control or adjustment of mA and/or kV according to the patient's size were employed. CLINICAL HISTORY: pain, mass upper L spine midline, has hardware COMPARISON: 06/17/2018 FINDINGS: There is fusion at L5-S1. Levoscoliosis is noted. There are moderate and severe degenerative changes with disc space narrowing and osteophytes. There is multilevel vacuum phenomenon. There is mild retrolisthesis of L1 on 2, L2 on 3, L3 on 4, and L4 on 5. Multiple chronic left transverse process fractures are noted. There is vascular calcification. No soft tissue mass is identified. There is no evidence of abnormal contrast enhancement. IMPRESSION: Multilevel degenerative disc disease. No evidence of soft tissue mass or abnormal contrast enhancement. Reviewed, Interpreted and Dictated by Aftab Weeks III, MD Transcribed by Elza Rodríguez Authenticated and [facility]
--- NOTE | 2023-05-25 10:47 | CT_ITS ---
FINAL REPORT TECHNIQUE: Axial imaging of the thoracic spine was obtained after the intravenous administration of contrast. Reformatted images were also obtained and reviewed. This study was performed with techniques to keep radiation doses as low as reasonably achievable (ALARA). Individualized dose reduction techniques using automated exposure control or adjustment of mA and/or kV according to the patient's size were employed. CLINICAL HISTORY: pain FINDINGS: There are mild and moderate degenerative changes with osteophytes. There is mild rightward curvature. There is no acute fracture or subluxation. There is no significant central canal stenosis. No paraspinal soft tissue mass is identified. There is no abnormal contrast-enhancement. IMPRESSION: No acute bony abnormality. No abnormal contrast-enhancement or soft tissue mass identified. Reviewed, Interpreted and Dictated by Aftab Weeks III, MD Transcribed by Claritza Palm Authenticated and [facility]
--- NOTE | 2023-05-25 10:48 | ED_ITS ---
Discharge Plan Disposition Patient Disposition: Home, Self-Care Condition: Fair Prescriptions Prescriptions: No Action calcium polycarbophil [Fiber (calcium polycarbophil)] 625 mg tablet 1,250 mg PO BID albuterol sulfate 90 mcg/actuation HFA aerosol inhaler 2 puff INHALATION Q6H PRN (Reason: shortness of breath or wheezing) Qty: 8.5 10RF pantoprazole 40 mg tablet,delayed release (DR/EC) See Rx Instructions .ROUTE .COMPLEX Qty: 90 2RF Dose Instruction: TAKE ONE TABLET BY MOUTH EVERY DAY FOR GERD Rx Instructions: TAKE ONE TABLET BY MOUTH EVERY DAY FOR GERD hydrochlorothiazide 12.5 mg capsule See Rx Instructions .ROUTE .COMPLEX Qty: 90 0RF Dose Instruction: TAKE 1 CAPSULE BY MOUTH EVERY DAY Rx Instructions: TAKE 1 CAPSULE BY MOUTH EVERY DAY amlodipine-benazepril 10-20 mg capsule See Rx Instructions .ROUTE .COMPLEX Qty: 90 0RF Dose Instruction: TAKE 1 CAPSULE BY MOUTH ONCE DAILY Rx Instructions: TAKE 1 CAPSULE BY MOUTH ONCE DAILY fluticasone furoate-vilanterol 1 EACH blister with device 1 puff IH DAILY metoclopramide HCl 10 MG tablet 10 mg PO ACHS atorvastatin 20 MG tablet 20 mg PO HS aspirin 81 MG tablet,delayed release (DR/EC) 81 mg PO DAILY bisoprolol fumarate 5 MG tablet 5 mg PO DAILY lidocaine 1 EACH adhesive patch,medicated 1 ea topical Q24H Referrals Follow up/Referrals: Bjorn Rain DO [Staff Physician] - See instructions (Back pain, significant degenerative disease) Rober Asencio DO [Staff Physician] - See instructions (Needs PCP in [place]) Murray Barkley MD [Primary Care Provider] - See instructions Activity Restrictions/Add. Instructions Additional Instructions/Restrictions: You were evaluated in the ER for back pain. You are appropriate for discharge at this time. Continue taking home medications as previously prescribed. Follow-up with primary care and Ortho. Make appointments with them for reevaluation as soon as possible. Ask the primary care physician for referral to pain management as well. Return to the ER with new, worsening, or otherwise concerning symptoms. Clinical Impressions Clinical Impression: Exacerbation of chronic back pain Instructions Patient Instructions: DI for Low Back Pain Discharge ED Provider: [facility] General Chief complaint: Back Pain/Injury Stated complaint: back pain Time Seen by Provider: 05/25/23 10:34 Mode of Arrival: Ambulatory Source of Information: Patient Limitations: No Limitations Description of Symptoms (Recalled from ER Triage Doc. by RN): pt c/o mid back pain x2d. pt states he was taking a bath and when he tried to stand up he twisted his back. pt c/o a lump on his mid back on the spine. While doing my assessment pt has a mass the size of 1/2 a baseball on his mid spine. The area is tender to touch, pain 7/10 worse with sitting and pressure in nature. pt st ates it feels like its trying to push out of my back. pt has a hx of having hardware placed in his back. History of Present Illness HPI narrative: 9-year-old male with a history of Crohn's, ulcerative colitis, prior discectomy and fusion presents to the ER with concerns of mid back pain. Patient states he was taking a bath 2 days ago when he twisted. He states he did not experience sudden onset pain at that time but shortly thereafter started having pain. He has a lump on his mid back in the same area that he had surgery and hardware placed. He states it feels like something is trying to push out of his back. He states the area is tender to the touch and he is having pain anytime he tries to lay on it. He does not have any numbness or weakness in his legs, no bowel or bladder incontinence. No other associated symptoms at this time. Patient states he does not currently have a primary care physician because his moved out of [place] and he does not have a vehicle to get around. He also states he does not have a spine doctor here in [place]. Related Data Home Medications Medication Instructions Recorded Confirmed calcium polycarbophil 625 mg 1,250 mg PO BID Supplement 04/29/20 03/16/23 tablet (Fiber (calcium polycarbophil)) fluticasone furoate 200 1 puff inhalation DAILY Asthma 07/07/21 03/16/23 mcg-vilanterol 25 mcg/dose inhalation powder metoclopramide HCl 10 mg tablet 10 mg PO ACHS Nausea & vomiting 07/08/21 1 05/17/22 aspirin 81 mg tablet,delayed 81 mg PO DAILY heart health 09/07/22 03/16/23 release atorvastatin 20 mg tablet 20 mg PO HS High cholesterol 09/07/22 03/16/23 bisoprolol fumarate 5 mg tablet 5 mg PO DAILY Hypertension 09/07/22 03/16/23 lidocaine 5 % topical patch 1 ea topical Q24H Pain 09/07/22 03/16/23 Previous Rx's Medication Instructions Recorded pantoprazole 40 mg tablet,delayed See Rx Instructions .Route 09/11/22 release .COMPLEX #90 tabs hydrochlorothiazide 12.5 mg capsule See Rx Instructions .Route 11/09/22 .COMPLEX #90 caps amlodipine 10 mg-benazepril 20 mg See Rx Instructions .Route 03/08/23 capsule .COMPLEX #90 caps albuterol sulfate 90 mcg/actuation 2 puff inhalation Q6H PRN 03/16/23 aerosol inhaler shortness of breath or wheezing #8.5 grams Allergies Allergy/AdvReac Type Severity Reaction Status Date / Time No Known Allergies Allergy Verified 03/16/23 08:38 [facility] Disclaimer: The information contained in this section may have been updated after the patient was seen, as this information can be updated by other users. Social History Smoking Status: Current every day smoker tobacco type: cigarettes packs per day: 6 second hand exposure: Yes alcohol intake: never substance use type: former substance user, marijuana and amphetamines current occupational status: disabled Travel in the last 8 weeks: None household members: spouse housing: apartment current occupational exposures/hazards: No caffeine: Yes ROS Obtained: Yes All systems reviewed & no additional complaints except as documented Constitutional Constitutional: Denies chills, Denies fever(s), Denies headache(s) and Denies weakness Eyes Eyes: Denies change in vision ENT Ears, Nose, Mouth, and Throat: Denies dizziness, Denies headache(s), Denies nasal congestion and Denies sore throat Cardiovascular Cardiovascular: Denies chest pain, Denies dyspnea and Denies leg edema Respiratory Respiratory: Denies cough and Denies dyspnea Gastrointestinal Gastrointestingal: Denies constipation, diarrhea, nausea or vomiting Genitourinary Male Genitourinary: Denies difficulty urinating Musculoskeletal Musculoskeletal: Denies arthralgias, Reports back pain, Reports joint swelling (Over mid spine), Denies myalgias, Denies numbness, Denies tingling and Reports other (No bowel or bladder incontinence) Integumentary/Breasts Skin/Breast: Denies change in pigmentation Neurologic Neurologic: Denies dizziness, Denies headache(s), Denies numbness, Denies tingling and Denies weakness Physical Exam General General appearance: alert and in no apparent distress Head Head exam: atraumatic and normocephalic Eye Eye exam: Present PERRL and EOMI ENT ENT exam: Present mucous membranes moist Neck Neck exam: Present normal inspection and full ROM Chest Chest inspection: Present symmetric chest wall rise Respiratory Respiratory exam: Absent respiratory distress or stridor Cardiovascular Cardiovascular exam: Present regular rate and normal rhythm Abdominal Exam Abdominal exam: Present soft; Absent distention or tenderness Extremities Exam Extremities exam: Present full ROM Back Exam Back exam: Present vertebral tenderness (Lower thoracic/upper lumbar midline tenderness with obvious firm protruding area over 2-3 spinous processes, no fluctuance, erythema, or induration. Exquisitely tender. No paraspinal tenderness.) Neurological Exam Neurological exam: Present alert, oriented X3 and other (No weakness or numbness in the legs, no saddle anesthesia); Absent motor sensory deficit Psychiatric Psychiatric exam: Present normal affect and normal mood Skin Skin exam: Present warm and dry Medical Decision Making Kevin Inquiry Pt receiving controlled substance: No Vital Signs: 05/25/23 10:30 05/25/23 10:32 05/25/23 14:36 Temperature 97.6 F 98.1 F Temperature Source Oral Oral Pulse Rate 93 H 70 Pulse Rate [Left] 102 H Respiratory Rate 18 18 Blood Pressure 118/79 Blood Pressure [Right Arm] 139/88 Blood Pressure Mean [Right Arm] 105 Blood Pressure Source Automatic Cuff Blood Pressure Source [Right Arm] Automatic Cuff Blood Pressure Position Sitting Blood Pressure Position [Right Arm] Sitting 02 Sat by Pulse Oximetry 99 98 Oxygen Delivery Method Room Air Lab Data Lab Results 05/25/23 11:08: WBC 10.1, RBC 4.44 L, Hgb 13.0 L, Hct 39.4 L, MCV 88.7, MCH 29.4, MCHC 33.1, RDW 15.2, Plt Count 361, MPV 7.7, Neut % (Auto) 60.9, Lymph % (Auto) 27.1, Arthur % (Auto) 8.4, Eos % (Auto) 3.0, Baso % (Auto) 0.5, Neut # (Auto) 6.1, Lymph # (Auto) 2.7, Arthur # (Auto) 0.8, Eos # (Auto) 0.3, Baso # (Aut o) 0.1, Sodium 139, Potassium 4.0, Chloride 104, Carbon Dioxide 32 H, Anion Gap 7.0, BUN 14, Creatinine 1.20, Estimated Creat Clear 59, Estimated GFR 60, Est GFR ( Amer) 72, Glucose 116 H, Calcium 9.3, Total Bilirubin 0.2, AST 19, ALT 15, Alkaline Phosphatase 102, C-Reactive Protein 39.7 H, Total Protein 7.3, Albumin 4.1, Globulin 3.2, Albumin/Globulin Ratio 1.3 05/25/23 11:08 05/25/23 11:08 Orders (Tests/Meds): ED MEDICATIONS Discontinued Medications Generic Name Dose Route Start Last Admin Trade Name Freq PRN Reason Stop Dose Admin Acetaminophen 500 mg 05/25/23 10:48 05/25/23 10:58 Acetaminophen 500mg Tab PO 05/25/23 10:49 500 mg ONCE ONE Administration Iopamidol 75 ml 05/25/23 12:10 05/25/23 12:11 Iopamidol-370 (76%);100ml Bottle IV 05/25/23 12:11 75 ml ONCE ONE Administration Lidocaine 1 each 05/25/23 10:48 05/25/23 10:58 Lidocaine 5% Transdermal Patch TP 05/25/23 10:49 1 each ONCE ONE Administration Morphine Sulfate 4 mg 05/25/23 12:05 05/25/23 12:13 Morphine 4mg/Ml Syringe IV 05/25/23 12:06 4 mg ONCE ONE Administration Sodium Chloride 10 ml 05/25/23 11:10 Sodium Chloride 0.9% 10ml Flush Syringe IV 06/24/23 11:09 NEEDED PRN Maintain IV Site Sodium Chloride 10 ml 05/25/23 12:10 05/25/23 12:10 Sodium Chloride 0.9% 10ml Syr (Rad Only) IV 05/25/23 12:11 10 ml ONCE ONE Administration ORDERS Category Date Time Status CT lumbar spine w con Stat Cat Scan 05/25/23 10:[address] thoracic spine w con Stat Cat Scan 05/25/23 10:47 Completed CBC w/Auto Diff [Complete Blood Count Auto Diff] Stat Lab 05/25/23 11:08 Com pleted CMP [Comprehensive Metabolic Panel] Stat Lab 05/25/23 11:08 Completed CRP [C-Reactive Protein] Stat Lab 05/25/23 11:08 Completed Medical Decision Narrative: In summary, this 72year old male presents to the emergency department today with back pain in the setting of prior discectomy and fusion which is a comorbidity of current condition and increases patient's overall morbidity. On initial evaluation patient is hemodynamically stable, afebrile, exam notable for swollen, tender midline area over the low thoracic/upper lumbar spine without numbness or weakness in the legs, no saddle anesthesia, no bowel or bladder incontinence. Differential diagnosis includes but is not limited to fracture, malalignment, hardware failure, osteomyelitis, other infection, considered cauda equina however patient has no findings of this on exam. Based on these concerns, I ordered basic labs, inflammatory markers, CT imaging of the spine with contrast. Patient received Tylenol, lidocaine patch for treatment. Labs personally reviewed demonstrate no leukocytosis, trace anemia, nonactionable, no electrolyte abnormalities, BUN and creatinine normal, CRP slightly elevated at 39.7, nonspecific without other findings of infection at this time CT imaging of the thoracic and lumbar spine was personally interpreted and I do appreciate significant degenerative changes as well as hardware in place in the spine. I do not appreciate any obvious malalignment. See radiology read for final interpretation. On reassessment patient continues to be stable, his pain is not significantly improved, but he is appropriate for discharge and comfortable with this plan. I provided local referral for PCP and orthopedics for which she was grateful. Jacinto heller was given instructions on symptomatic management, follow up instructions, and return precautions for the emergency department. Patient indicated understanding and was discharged in stable condition.. Critical Care Critical Care Time Critical Care Time: No
[2023-05-25] MEDS: LIDOCAINE 5% TRANSDERMAL PATCH 1 EACH TP (10:58)
[2023-05-25] MEDS: ACETAMINOPHEN 500MG TAB 500 MG PO (10:58)
[2023-05-25 11:22] LABS: Basophils # 0.1 K/mm3 (0-0.2); Basophils % 0.5 % (0.1-2.0); Eosinophils # 0.3 K/mm3 (0.0-0.4); Hematocrit 39.4 % (42.0-52.0); Lymphocytes # 2.7 K/mm3 (0.7-4.5); Lymphocytes % 27.1 % (10-50); Mean Corpuscular HGB Conc 33.1 g/dL (31.8-35.4); Mean Corpuscular Hemoglobin 29.4 pg (27.0-31.2); Mean Corpuscular Volume 88.7 fl (80-94); Mean Platelet Volume 7.7 fl (7.4-10.4); Monocytes # 0.8 K/mm3 (0.1-1.0); Monocytes % 8.4 % (1.7-9.3); Neutrophils # 6.1 K/mm3 (1.8-7.8); Neutrophils % 60.9 % (37.0-80.0); Platelet Count 361 K/mm3 (142-424); Red Blood Count 4.44 M/mm3 (4.60-6.20); Red Cell Distribution Width 15.2 % (11.5-17.5); White Blood Count 10.1 K/mm3 (4.8-10.8)
[2023-05-25 11:23] LABS: Chloride 104 mmol/L (98-107); Sodium 139 mmol/L (136-145)
[2023-05-25 11:26] LABS: Alanine Aminotransferase 15 U/L (12-78); Albumin Level 4.1 g/dl (3.5-5.0); Albumin/Globulin Ratio 1.3 (1.1-1.8); Alkaline Phosphatase 102 U/L (38-126); Aspartate Amino Transferase 19 U/L (17-59); Bilirubin,Total 0.2 mg/dl (0.2-1.3); Blood Urea Nitrogen 14 mg/dl (9-20); Calcium 9.3 mg/dl (8.4-10.2); Carbon Dioxide 32 mmol/L (22.0-30.0); Creatinine Clearance Estimated 59 mL/min (50-200); Estimated Glomerular Filt Rate 60 ml/min (>60); GFR (African American) 72 ML/MIN (>60); Globulin 3.2 g/dL (1.3-3.2); Glucose 116 mg/dl (74-100); Total Protein,Serum 7.3 g/dl (6.3-8.2)
[2023-05-25 11:36] LABS: C-Reactive Protein 39.7 mg/L (0-4)
[2023-05-25] MEDS: SODIUM CHLORIDE 0.9% 10ML SYR (RAD ONLY) 10 ML IV (12:10)
[2023-05-25] MEDS: IOPAMIDOL-370 (76%);100ML BOTTLE 75 ML IV (12:11)
[2023-05-25] MEDS: MORPHINE 4MG/ML SYRINGE 4 MG IV (12:13)
[2023-05-25 14:36] VITALS: BP 118/79; PULSE 70; RESP 18; TEMP 36.7; O2SAT 96
== END 2023-05-25 14:36 | disposition home or self-care (01) ==
PROVIDERS: Emergency Provider Emergency Medicine; PCP Family Medicine
DX: M54.6 Pain in thoracic spine (principal); M47.815 Spondylosis without myelopathy or radiculopathy, thoracolumbar region; M47.817 Spondylosis without myelopathy or radiculopathy, lumbosacral region; F17.210 Nicotine dependence, cigarettes, uncomplicated
CPT/HCPCS: 72129; 72132; 80053; 85025; 86140; 96374; 99285; Q9967

== ENCOUNTER 2023-10-31 09:59 | Outpatient (CLI) | payer MEDICARE, SELFPAY ==
[2023-10-31 18:32] LABS: Basophils # 0.1 K/mm3 (0-0.2); Basophils % 0.7 % (0.1-2.0); Eosinophils # 0.2 K/mm3 (0.0-0.4); Eosinophils % 2.4 % (0.1-12.0); Hematocrit 39.5 % (42.0-52.0); Hemoglobin 14.2 g/dL (14.1-18.0); Lymphocytes # 2.6 K/mm3 (0.7-4.5); Lymphocytes % 30.1 % (10-50); Mean Corpuscular Hemoglobin 32.6 pg (27.0-31.2); Mean Corpuscular Volume 90.5 fl (80-94); Mean Platelet Volume 8.7 fl (7.4-10.4); Monocytes # 0.6 K/mm3 (0.1-1.0); Monocytes % 6.9 % (1.7-9.3); Neutrophils # 5.3 K/mm3 (1.8-7.8); Platelet Count 476 K/mm3 (142-424); Red Blood Count 4.37 M/mm3 (4.60-6.20); Red Cell Distribution Width 16.8 % (11.5-17.5); White Blood Count 8.8 K/mm3 (4.8-10.8)
[2023-10-31 19:12] LABS: Alanine Aminotransferase 15 U/L (12-78); Albumin Level 4.3 g/dl (3.5-5.0); Albumin/Globulin Ratio 1.3 (1.1-1.8); Alkaline Phosphatase 95 U/L (38-126); Anion Gap 13.4 mEq/L (5-15); Aspartate Amino Transferase 20 U/L (17-59); Bilirubin,Total 0.2 mg/dl (0.2-1.3); Blood Urea Nitrogen 18 mg/dl (9-20); Calcium 10.4 mg/dl (8.4-10.2); Carbon Dioxide 26 mmol/L (22.0-30.0); Chloride 104 mmol/L (98-107); Chol/HDL Ratio 5.4 (1-3.5); Cholesterol 194 mg/dl (140-200); Estimated Glomerular Filt Rate 60 ml/min (>60); GFR (African American) 72 ML/MIN (>60); Globulin 3.4 g/dL (1.3-3.2); Glucose 97 mg/dl (74-100); HDL Cholesterol 36 mg/dl (40-60); Potassium 4.4 mmoL/L (3.5-5.1); Sodium 139 mmol/L (136-145); Total Protein,Serum 7.7 g/dl (6.3-8.2); Triglycerides 158 mg/dl (30-150); VLDL Cholesterol 32 mg/dL (0-40)
[2023-10-31 19:24] LABS: Direct LDL Cholesterol 112.74 mg/dL (100-129)
[2023-10-31 19:34] LABS: 25-OH Vitamin D, Total 21.6 ng/mL (30-100)
[2023-10-31 19:45] LABS: Prostate Specific Ag Screen 1.6 ng/ml (0.0-4.0); Thyroid Stimulating Hormone 1.99 uIU/mL (0.465-4.68)
== END 2023-10-31 23:59 | disposition home or self-care (01) ==
LOC: LAB.DROPOF 11-01 10:00
PROVIDERS: PCP Nurse Practitioner Family; Visit Provider Nurse Practitioner Family
DX: E55.9 Vitamin D deficiency, unspecified (principal); K50.912 Crohn's disease, unspecified, with intestinal obstruction; E78.00 Pure hypercholesterolemia, unspecified; G89.29 Other chronic pain; M54.9 Dorsalgia, unspecified; Z12.5 Encounter for screening for malignant neoplasm of prostate; R53.83 Other fatigue
CPT/HCPCS: 80050; 80053; 80061; 82306; 84443; 85025; G0103

== ENCOUNTER 2023-11-16 11:02 | Outpatient (CLI) | payer MEDICARE, SELFPAY ==
--- NOTE | 2023-11-16 11:03 | US_ITS ---
FINAL REPORT CLINICAL HISTORY: CLAUDICATION,SMOKER,HTN,REST PAIN FINDINGS: ANKLE-BRACHIAL PRESSURE INDICES Pressure indices are as follows: RIGHT LOWER EXTREMITY: Ankle-brachial pressure index: 1.0 Comments: Normal LEFT LOWER EXTREMITY: Ankle-brachial pressure index: 1.0 Comments: Normal IMPRESSION: No evidence of significant obstructive peripheral vascular disease of the lower extremities Reviewed, Interpreted and Dictated by Aftab Weeks III, MD Transcribed by Claritza Palm Authenticated and [facility]
== END 2023-11-16 23:59 | disposition home or self-care (01) ==
LOC: RT 11:03
PROVIDERS: PCP Family Medicine; Visit Provider Family Medicine
DX: I73.9 Peripheral vascular disease, unspecified (principal)
CPT/HCPCS: 93923

== ENCOUNTER 2024-10-10 18:14 | Emergency (ER) | payer MEDICARE, MEDICAID, SELFPAY ==
--- OUTSIDE RECORDS SUMMARY | 2006-05-07 09:30 | XMS_ITS | Continuity of Care Document ---
Author Name [facility] Organization [facility] Care Team Providers Care Building Guard Deputy Sheriff Name Role Phone [facility] Unavailable Unavailable Problems Combined list of problems from Department of Defense and Veterans Affairs facilities. It does not include entries that were removed or entered in error. Problem Status Onset Date Problem Type Date of Resolution Comments Source Anxiety Disorder Active Condition [place] [facility] Back Pain (ICD-9-CM 724.5) Active Condition [place] Chronic Back Pain (ICD-9-CM 724.5) Active Condition Oct 29 7 Entered By: HUNG NOGUERA Comment: Broken Narcotic Contract - cocaine use [facility] Chronic Low Back Pain (ICD-9-CM 724.2) Active Condition [facility] Cocaine abuse [facility] Family History Active Condition [place] Health Maintenance Active Condition J ul 2006 Entered By: HUNG NOGUERA Comment: Heme neg x 3 2006 Entered By: HUNG NOGUERA Comment: PSA 1.3 2006 Entered By: HUNG NOGUERA Comment: TSH 1.87 03/14 [place] Homeless Active Condition [facility] HTN [facility] Hypert[facility] Active Condition [place] [facility] Nephrolithiasis Active Condition [facility] Social History Active Condition Oct 082006 Entered By: HUNG NOGUERA Comment: 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 Immunization Series Date Given Administered By Site Reaction Lot Number CVX Code Drug Building Construction Engineer Status Comments Source INFLUENZA A & B (HISTORICAL) 2005 88 complet ed [place] PNEUMOCOCCAL, UNSPECIFIED FORMULATION 2005 109 complet ed [place] INFLUENZA A & B (HISTORICAL) 2005 88 complet ed no reaction [place] [facility] [place] TD(ADULT) UNSPECIFIED FORMULATION 2005 139 complet ed no reaction [place] [facility] PNEUMOCOCCAL, UNSPECIFIED FORMULATION 2004 109 complet ed [facility] TD(ADULT) UNSPECIFIED FORMULATION 2004 139 complet ed [facility] Social History Combined list of available smoking, tobacco, and other social history from Department of Defense and Veterans Affairs facilities. Social History Type Response Date Comment [facility] e Tobacco smoking status GAIS V9 CURRENT TOBACCO USER 05/07/2006 1/2 pack a day [facility] History of tobacco use V9 TOBACCO OFFERED 05/07/2006 [facility] History of tobacco use TOBACCO CURRENT USER 01/04/2006 [facility]
[2024-10-10] VITALS (32 sets, daily range): BP systolic 62–147; BP diastolic 37–78; PULSE 61–79; RESP 12–20; TEMP 36.8; O2SAT 93–100; BMI 22.1
--- OUTSIDE RECORDS SUMMARY | 2024-10-10 18:20 | XMS_ITS ---
Author Organization Unknown Plan of Treatment Description Planned Activity Planned Timing - Telephone encounter Jun 08, 2023 Patient Care team information Name Category Status Period Participants - - Proposed period not known -
--- NOTE | 2024-10-10 18:30 | XR_ITS ---
PROCEDURE INFORMATION: Exam: XR Pelvis Exam date and time: 10/10/2024 7:09 PM Age: 73 years old Clinical indication: Injury or trauma; Fall; Blunt trauma (contusions or hematomas); Does not apply; Pelvic region TECHNIQUE: Imaging protocol: Radiologic exam of the pelvis. Views: 1 or 2 view. COMPARISON: CT ANGIO ABD/PEL - TRAUMA 10/10/2024 7:03 PM FINDINGS: Bones/joints: L5-S1 fusion. The hardware appears intact. No acute fracture or dislocation. Subtle sclerosis of the femoral head suggesting early state avascular necrosis. Soft tissues: Unremarkable. Contrast in the urinary bladder. IMPRESSION: No acute fracture or dislocation.
--- NOTE | 2024-10-10 18:30 | XR_ITS ---
PROCEDURE INFORMATION: Exam: XR Chest Exam date and time: 10/10/2024 7:09 PM Age: 73 years old Clinical indication: Injury or trauma; Fall; Blunt trauma (contusions or hematomas) TECHNIQUE: Imaging protocol: Radiologic exam of the chest. Views: 1 view. COMPARISON: CT ANGIO CHEST 10/10/2024 7:03 PM FINDINGS: Lungs: Bilateral apical scarring. Pleural spaces: Unremarkable. No pleural effusion. No pneumothorax. Heart/Mediastinum: Cardiomegaly. Vasculature: Vascular calcifications. Bones/joints: Unremarkable. IMPRESSION: No acute intrathoracic organ injury.
--- NOTE | 2024-10-10 18:31 | CT_ITS ---
PROCEDURE INFORMATION: Exam: CT Thoracic Spine Without Contrast Exam date and time: 10/10/2024 6:53 PM Age: 73 years old Clinical indication: Injury or trauma; Additional info: Trauma, critical injury suspected TECHNIQUE: Imaging protocol: Computed tomography of the thoracic spine without contrast. Radiation optimization: All CT scans at this facility use at least one of these dose optimization techniques: automated exposure control; mA and/or kV adjustment per patient size (includes targeted exams where dose is matched to clinical indication); or iterative reconstruction. COMPARISON: CT THORACIC SPINE W CON 05/25/2023 11:42 AM FINDINGS: Bones/joints: No acute fracture. Normal alignment. No significant disc bulge or herniation. No severe spinal canal stenosis. No significant neural foraminal narrowing. Soft tissues: Unremarkable. IMPRESSION: No acute thoracic spine fracture.
--- NOTE | 2024-10-10 18:31 | CT_ITS ---
PROCEDURE INFORMATION: Exam: CT Head Without Contrast Exam date and time: 10/10/2024 6:47 PM Age: 73 years old Clinical indication: Injury or trauma; Additional info: Trauma, critical injury suspected TECHNIQUE: Imaging protocol: Computed tomography of the head without contrast. Radiation optimization: All CT scans at this facility use at least one of these dose optimization techniques: automated exposure control; mA and/or kV adjustment per patient size (includes targeted exams where dose is matched to clinical indication); or iterative reconstruction. COMPARISON: CT - HEADWO CT head/brain wo con 06/17/2018 8:26 AM FINDINGS: Brain: Chronic bilateral basal ganglia lacunar infarctions. Moderate chronic brain volume loss and chronic small vessel ischemic changes. Cerebral ventricles: No ventriculomegaly. Paranasal sinuses: Mild mucosal thickening in the paranasal sinuses. Mastoid air cells: Visualized mastoid air cells are well aerated. Bones: Nasal fracture is age indeterminate, but most likely chronic. Soft tissues: Unremarkable. IMPRESSION: 1. No acute intracranial findings. 2. Nasal fracture is age indeterminate, but most likely chronic. Please correlate with point tenderness to exclude an acute component.
--- NOTE | 2024-10-10 18:31 | CT_ITS ---
PROCEDURE INFORMATION: Exam: CT Lumbar Spine Without Contrast Exam date and time: 10/10/2024 6:55 PM Age: 73 years old Clinical indication: Injury or trauma; Additional info: Trauma, critical injury suspected TECHNIQUE: Imaging protocol: Computed tomography of the lumbar spine without contrast. Radiation optimization: All CT scans at this facility use at least one of these dose optimization techniques: automated exposure control; mA and/or kV adjustment per patient size (includes targeted exams where dose is matched to clinical indication); or iterative reconstruction. COMPARISON: CT LUMBAR SPINE W CON 05/25/2023 11:42 AM FINDINGS: Bones/joints: No acute fracture. Normal alignment. L1-L2: No significant disc bulge or herniation. No severe spinal canal stenosis. No significant neural foraminal narrowing. L2-L3: No significant disc bulge or herniation. No severe spinal canal stenosis. No significant neural foraminal narrowing. L3-L4: No significant disc bulge or herniation. No severe spinal canal stenosis. No significant neural foraminal narrowing. L4-L5: No significant disc bulge or herniation. No severe spinal canal stenosis. No significant neural foraminal narrowing. L5-S1: PLIF L5-S1. Soft tissues: Unremarkable. IMPRESSION: No acute traumatic injury identified.
--- NOTE | 2024-10-10 18:31 | CT_ITS ---
PROCEDURE INFORMATION: Exam: CT Pelvis Without Contrast, Skeleton Exam date and time: 10/10/2024 6:57 PM Age: 73 years old Clinical indication: Injury or trauma; Additional info: Trauma, critical injury suspected TECHNIQUE: Imaging protocol: Computed tomography of the pelvis without contrast. Exam focused on the skeleton. Radiation optimization: All CT scans at this facility use at least one of these dose optimization techniques: automated exposure control; mA and/or kV adjustment per patient size (includes targeted exams where dose is matched to clinical indication); or iterative reconstruction. COMPARISON: CT ABDOMEN PELVIS W CON 09/07/2022 8:10 PM FINDINGS: Vasculature: The arteries demonstrate severe atherosclerotic disease. Bones/joints: Sclerosis of the right femoral head likely representing early stage avascular necrosis. Mild bilateral hip osteoarthrosis. Subtle irregularity of cortex of the low aspect of the sacrum. Soft tissues: Unremarkable. IMPRESSION: Subtle irregularity of cortex of the low aspect of the sacrum, easiest to see on sagittal images. If this correlates with point tenderness, a nondisplaced fracture is possible. Otherwise, no acute fractures.
--- NOTE | 2024-10-10 18:31 | CT_ITS ---
PROCEDURE INFORMATION: Exam: CTA Head With Contrast, Arteriography Exam date and time: 10/10/2024 7:00 PM Age: 73 years old Clinical indication: Injury or trauma; Additional info: Trauma, critical injury suspected TECHNIQUE: Imaging protocol: Computed tomographic angiography of the head with contrast. Exam focused on the arteries. 3D rendering (Not supervised by radiologist): MIP and/or 3D reconstructed images were created by the technologist. Radiation optimization: All CT scans at this facility use at least one of these dose optimization techniques: automated exposure control; mA and/or kV adjustment per patient size (includes targeted exams where dose is matched to clinical indication); or iterative reconstruction. Contrast material: ISOVUE; Contrast volume: 80 ml; Contrast route: INTRAVENOUS (IV); COMPARISON: CT HEAD/BRAIN WO CON 10/10/2024 6:47 PM FINDINGS: ANTERIOR CIRCULATION: Right internal carotid artery: Intracranial segment is patent with no significant stenosis. No aneurysm. Right middle cerebral artery: No occlusion or significant stenosis. No aneurysm. Right anterior cerebral artery: No occlusion or significant stenosis. No aneurysm. Left internal carotid artery: Intracranial segment is patent with no significant stenosis. No aneurysm. Left middle cerebral artery: No occlusion or significant stenosis. No aneurysm. Left anterior cerebral artery: No occlusion or significant stenosis. No aneurysm. POSTERIOR CIRCULATION: Right vertebral artery: No occlusion or significant stenosis. No aneurysm. Left vertebral artery: No occlusion or significant stenosis. No aneurysm. Basilar artery: No occlusion or significant stenosis. No aneurysm. Right posterior cerebral artery: No occlusion or significant stenosis. No aneurysm. Left posterior cerebral artery: No occlusion or significant stenosis. No aneurysm. Brain: No definite mass, mass effect, or midline shift. Cerebral ventricles: No ventriculomegaly. Bones/joints: Unremarkable. No acute fracture. Soft tissues: Unremarkable. IMPRESSION: 1. No large vessel stenosis or occlusion. 2. No acute traumatic intracranial abnormality identified.
--- NOTE | 2024-10-10 18:31 | CT_ITS ---
PROCEDURE INFORMATION: Exam: CTA Abdomen and Pelvis With Contrast Exam date and time: 10/10/2024 7:03 PM Age: 73 years old Clinical indication: Pain; Additional info: Trauma, critical injury suspected TECHNIQUE: Imaging protocol: Computed tomographic angiography of the abdomen and pelvis with contrast. Exam focused on the arteries. 3D rendering (Not supervised by radiologist): MIP and/or 3D reconstructed images were created by the technologist. Radiation optimization: All CT scans at this facility use at least one of these dose optimization techniques: automated exposure control; mA and/or kV adjustment per patient size (includes targeted exams where dose is matched to clinical indication); or iterative reconstruction. Contrast material: ISOVUE; Contrast volume: 80 ml; Contrast route: INTRAVENOUS (IV); COMPARISON: CT BONY PELVIS 10/10/2024 6:57 PM FINDINGS: Aorta: No aortic aneurysm. No aortic dissection. Celiac trunk and mesenteric arteries: Mild proximal SMA stenosis. Mild proximal celiac trunk stenosis. Renal arteries: Moderate right renal arterial stenosis. Right iliac arteries: No occlusion or significant stenosis. Left iliac arteries: No occlusion or significant stenosis. Other arteries: The arteries demonstrate severe atherosclerotic disease. Liver: No mass. Gallbladder and biliary ducts: Contracted gallbladder. Pancreas: Unremarkable. No mass. No ductal dilation. Spleen: Unremarkable. No splenomegaly. Adrenal glands: Unremarkable. No mass. Kidneys and ureters: Unremarkable. No solid mass. No hydronephrosis. Stomach and bowel: Unremarkable. No obstruction. No mucosal thickening. Appendix: No evidence of appendicitis. Intraperitoneal space: Unremarkable. No free air. No significant fluid collection. Lymph nodes: Unremarkable. No enlarged lymph nodes. Urinary bladder: Unremarkable. No mass. Reproductive: Mild prostate enlargement. Bones/joints: No acute fracture. Soft tissues: Unremarkable. Other findings: Please see separate report for CT chest. IMPRESSION: No acute intra-abdominal or intrapelvic organ injury.
--- NOTE | 2024-10-10 18:31 | CT_ITS ---
PROCEDURE INFORMATION: Exam: CTA Neck With Contrast Exam date and time: 10/10/2024 7:00 PM Age: 73 years old Clinical indication: Pain; Additional info: Trauma, critical injury suspected TECHNIQUE: Imaging protocol: Computed tomographic angiography of the neck with contrast. Exam focused on the cervical segments of the vasculature. 3D rendering (Not supervised by radiologist): MIP and/or 3D reconstructed images were created by the technologist. Radiation optimization: All CT scans at this facility use at least one of these dose optimization techniques: automated exposure control; mA and/or kV adjustment per patient size (includes targeted exams where dose is matched to clinical indication); or iterative reconstruction. Contrast material: ISOVUE; Contrast volume: 80 ml; Contrast route: INTRAVENOUS (IV); COMPARISON: CT CERVICAL SPINE WO CON 10/10/2024 6:50 PM FINDINGS: Right common carotid artery: No stenosis. No dissection or occlusion. Right internal carotid artery: Mild stenosis of the extracranial segment. No dissection or occlusion. Right external carotid artery: No occlusion or stenosis of the origin. Left common carotid artery: No stenosis. No dissection or occlusion. Left internal carotid artery: Mild stenosis of the extracranial segment. No dissection or occlusion. Left external carotid artery: No occlusion or stenosis of the origin. Right vertebral artery: No stenosis. No dissection or occlusion. Left vertebral artery: No stenosis. No dissection or occlusion. Soft tissues: Normal. No significant soft tissue swelling. Bones/joints: No acute fracture. IMPRESSION: 1. Mild right ICA stenosis at the bulb, less than 50% by NASCET criteria. 2. Mild left ICA stenosis at the bulb, less than 50% by NASCET criteria. REFERENCES: NASCET CRITERIA. The degree of stenosis in the cervical segment of the internal carotid artery is based on NASCET criteria. Normal is no stenosis. Mild is less than 50% stenosis. Moderate is 50-69% stenosis. Severe is 70% to 99% stenosis. Total occlusion is no detectable patent lumen.
--- NOTE | 2024-10-10 18:31 | CT_ITS ---
PROCEDURE INFORMATION: Exam: CTA Chest With Contrast Exam date and time: 10/10/2024 7:03 PM Age: 73 years old Clinical indication: Pain; Additional info: Trauma, critical injury suspected TECHNIQUE: Imaging protocol: Computed tomographic angiography of the chest with contrast. Exam focused on the arteries. 3D rendering (Not supervised by radiologist): MIP and/or 3D reconstructed images were created by the technologist. Radiation optimization: All CT scans at this facility use at least one of these dose optimization techniques: automated exposure control; mA and/or kV adjustment per patient size (includes targeted exams where dose is matched to clinical indication); or iterative reconstruction. Contrast material: ISOVUE; Contrast volume: 80 ml; Contrast route: INTRAVENOUS (IV); COMPARISON: CT ANGIO CHEST PE PROTOCOL 07/07/2021 8:16 PM FINDINGS: Pulmonary arteries: Normal. No pulmonary emboli. Aorta: The aorta demonstrates severe atherosclerotic disease. Lungs: Mild paraseptal emphysema. Mild scarring and atelectasis in the lower lungs. Small amount of secretions in the right mainstem bronchus. Pleural spaces: Unremarkable. No pneumothorax. No pleural effusion. Heart: Cardiomegaly. Mitral and aortic valve calcifications. Coronary arteries: Coronary artery calcifications. Lymph nodes: Unremarkable. No enlarged lymph nodes. Bones/joints: Unremarkable. No acute fracture. Soft tissues: Unremarkable. IMPRESSION: No acute intrathoracic organ injury. COMMENTS: The presence of pulmonary emphysema on CT is an independent risk factor for lung cancer. In the absence of a history or active diagnosis of lung cancer, it is recommended that this patient with emphysema be evaluated for enrollment in a low dose CT lung cancer screening program.
--- NOTE | 2024-10-10 18:31 | CT_ITS ---
PROCEDURE INFORMATION: Exam: CT Cervical Spine Without Contrast Exam date and time: 10/10/2024 6:50 PM Age: 73 years old Clinical indication: Injury or trauma; Additional info: Trauma, critical injury suspected TECHNIQUE: Imaging protocol: Computed tomography of the cervical spine without contrast. Radiation optimization: All CT scans at this facility use at least one of these dose optimization techniques: automated exposure control; mA and/or kV adjustment per patient size (includes targeted exams where dose is matched to clinical indication); or iterative reconstruction. COMPARISON: CT - SPCERVWO CT cervical spine wo con 06/17/2018 8:29 AM FINDINGS: Bones: [id number] right neural foraminal stenosis at C3-C5. Moderate to severe left neural foraminal stenosis at C3-C5 and C6-C7. Multilevel degenerative changes of the cervical spine producing multiple levels of mild and moderate spinal canal stenosis. Degenerative changes at C3-C4 produce up to severe spinal stenosis. Lungs: Lung apices are normal. Soft tissues: Unremarkable. IMPRESSION: 1. No acute fracture or malalignment of the cervical spine. 2. Degenerative changes at C3-C4 produce up to severe spinal stenosis.
--- NOTE | 2024-10-10 18:31 | CT_ITS ---
PROCEDURE INFORMATION: Exam: CT Maxillofacial Without Contrast Exam date and time: 10/10/2024 6:48 PM Age: 73 years old Clinical indication: Injury or trauma; Additional info: Trauma, critical injury suspected TECHNIQUE: Imaging protocol: Computed tomography of the face without contrast. Radiation optimization: All CT scans at this facility use at least one of these dose optimization techniques: automated exposure control; mA and/or kV adjustment per patient size (includes targeted exams where dose is matched to clinical indication); or iterative reconstruction. COMPARISON: CT - FACEWO CT facial bones wo con 03/22/2018 12:51 AM FINDINGS: Paranasal sinuses: Mild mucosal thickening in the paranasal sinuses. Orbital cavities: Orbits are normal. Globes are unremarkable. Bones: Nasal fracture is age indeterminate. Soft tissues: Unremarkable. IMPRESSION: Nasal fracture is age indeterminate, possibly acute. Please correlate with point tenderness.
[2024-10-10 18:37] LABS: Hematocrit 36.6 % (42.0-52.0); Hemoglobin 12.1 g/dL (14.1-18.0); Immature Granulocytes % 0.3 %; Mean Corpuscular HGB Conc 33.1 g/dL (31.8-35.4); Mean Corpuscular Hemoglobin 28.8 pg (27.0-31.2); Mean Corpuscular Volume 87.1 fl (80-94); Nucleated Red Blood Cells % 0 %; Platelet Count 326 K/mm3 (142-424); Red Blood Count 4.20 M/mm3 (4.60-6.20); Red Cell Distribution Width-SD 49.0 fL; White Blood Count 10.7 K/mm3 (4.8-10.8)
--- NOTE | 2024-10-10 18:39 | HMH.EDGENADL ---
Discharge Plan Disposition Patient Disposition: Xfer Other Prescriptions Prescriptions: No Action albuterol sulfate 90 mcg/actuation HFA aerosol inhaler 2 puff INHALATION Q6H PRN (Reason: shortness of breath or wheezing) Qty: 8.5 10RF prednisone 20 mg tablet 20 mg PO BID 5 Days Qty: 10 0RF azithromycin 250 mg tablet See Rx Instructions PO .COMPLEX Qty: 6 0RF Rx Instructions: take 500 mg today (day 1), then 250 mg for 4 days (days 2-5) benzonatate 100 mg capsule 100 mg PO TID PRN (Reason: cough) Qty: 30 0RF ondansetron 4 mg tablet,disintegrating 4 mg PO Q8H PRN (Reason: nausea and vomiting) Qty: 30 0RF aspirin 81 mg tablet,delayed release (DR/EC) 81 mg PO DAILY Qty: 90 1RF bisoprolol fumarate 5 mg tablet 5 mg PO DAILY Qty: 90 1RF fluticasone furoate-vilanterol [Breo Ellipta] 100-25 mcg/dose blister with device 1 inh inhalation DAILY Qty: 60 3RF ergocalciferol (vitamin D2) 50 mcg (2,000 unit) capsule 50 mcg PO DAILY Qty: 30 4RF ergocalciferol (vitamin D2) 1,250 mcg (50,000 unit) capsule 1,250 mcg PO WEEKLY Qty: 9 3RF pantoprazole 40 mg tablet,delayed release (DR/EC) See Rx Instructions .ROUTE .COMPLEX Qty: 90 1RF Dose Instruction: TAKE ONE TABLET BY MOUTH EVERY DAY FOR GERD Rx Instructions: TAKE ONE TABLET BY MOUTH EVERY DAY FOR GERD amlodipine-benazepril 10-20 mg capsule See Rx Instructions .ROUTE .COMPLEX Qty: 90 0RF Dose Instruction: TAKE 1 CAPSULE BY MOUTH ONCE DAILY Rx Instructions: TAKE 1 CAPSULE BY MOUTH ONCE DAILY metoclopramide HCl 10 MG tablet 10 mg PO ACHS atorvastatin 20 MG tablet 20 mg PO HS lidocaine 1 EACH adhesive patch,medicated 1 ea topical Q24H Referrals Follow up/Referrals: Provider,Referral, MD [Referring, Medical] - See instructions Clinical Impressions Clinical Impression: Seizure-like activity, Altered mental status, Transient hypotension, Closed fracture nasal bone Stand Alone Forms Stand Alone Forms: Transfer Record - ED Instructions Patient Instructions: DI for Altered Mental Status Print Language Print Language: [place] Discharge ED Provider: Karsner,Juan General Adult HPI General Chief complaint: Altered Mental Status Stated complaint: AMS Time Seen by Provider: 10/10/24 18:19 Mode of Arrival: EMS Source of Information: Patient and EMS Description of Symptoms (Recalled from ER Triage Doc. by RN): ems called out for s possible drug overdose. pt found facedown but breathing. blood noted to his face. reports back pain. denies drug use. per report pt has been taken off of his gabapentin due to abuse History of Present Illness HPI narrative: Adryan Ferguson is a 73-year-old male, per chart review, with a history of GERD, hypertension, Crohn's disease, methamphetamine abuse, who presents to the emergency department via EMS for altered mental status. Per EMS, patient's stated that he was having seizures all day but denies any history of seizures. Reportedly, EMS stated that he was found facedown on the floor and was somewhat somnolent but then became combative shortly after. They noted nasal bleeding and were concerned he has a nasal bone fracture. They stated that he refused to put on the c-collar. EMS said that he was alert but ended up having to be handcuffed due to combativeness. He received intranasal Narcan without improvement. Patient is alert and oriented x 3 but is complaining of lower back pain. He initially stated that he fell down the steps but was noted to have been found upstairs. Patient then stated that he fell while taking out the garbage. He denies any alcohol use, recreational drug use. It was noted that patient was recently taken off his gabapentin as there was concern for abuse. Patient arrives with gabapentin pill bottle filled with some sort of gummy medication. He has bisoprolol and pantoprazole as well. Related Data Home Medications ?Medication ?Instructions ?Recorded ?Confirmed metoclopramide HCl 10 mg tablet 10 mg PO ACHS Nausea & vomiting 07/08/21 04/08/24 atorvastatin 20 mg tablet 20 mg PO HS High cholesterol 09/07/22 04/08/24 lidocaine 5 % topical patch 1 ea topical Q24H Pain 09/07/22 04/08/24 Previous Rx's ?Medication ?Instructions ?Recorded albuterol sulfate 90 mcg/actuation 2 puff inhalation Q6H PRN 03/16/23 aerosol inhaler shortness of breath or wheezing #8.5 grams aspirin 81 mg tablet,delayed 81 mg PO DAILY heart health #90 10/31/23 release tabs bisoprolol fumarate 5 mg tablet 5 mg PO DAILY Hypertension #90 tabs 10/31/23 fluticasone furoate 100 1 inh inhalation DAILY #60 ea 10/31/23 mcg-vilanterol 25 mcg/dose inhalation powder (Breo Ellipta) ergocalciferol (vitamin D2) 1,250 1,250 mcg PO WEEKLY #9 caps 11/01/23 mcg (50,000 unit) capsule ergocalciferol (vitamin D2) 50 mcg 50 mcg PO DAILY #30 caps 11/01/23 (2,000 unit) capsule azithromycin 250 mg tablet See Rx Instructions PO .COMPLEX #6 04/08/24 tabs benzonatate 100 mg capsule 100 mg PO TID PRN cough #30 caps 04/08/24 ondansetron 4 mg disintegrating 4 mg PO Q8H PRN nausea and 04/08/24 tablet vomiting #30 tabs prednisone 20 mg tablet 20 mg PO BID 5 days #10 tabs 04/08/24 pantoprazole 40 mg tablet,delayed See Rx Instructions .Route 07/07/24 release .COMPLEX #90 tabs amlodipine 10 mg-benazepril 20 mg See Rx Instructions .Route 10/07/24 capsule .COMPLEX #90 caps Allergies Allergy/AdvReac Type Severity Reaction Status Date / Time No Known Allergies Allergy Verified 11/05/23 11:22 [facility] Disclaimer: The information contained in this section may have been updated after the patient was seen, as this information can be updated by other users. Medical History Vitamin D deficiency Social History Smoking Status: Current every day smoker tobacco type: cigarettes packs per day: 6 second hand exposure: Yes alcohol intake: never substance use type: former substance user, marijuana and amphetamines current occupational status: disabled Travel in the last 8 weeks?: None household members: spouse housing: apartment current occupational exposures/hazards: No caffeine: Yes Have you lived/traveled outside [place] in past 30 days?: No Contact w/someone who lives/traveled outside US past 30 days?: No Exposure to someone with infectious disease in past 14 days?: No Do you have a fever (greater than 100.4 F or 38 C)?: No Have you tested positive for COVID-19?: No Exposed to someone with COVID-19 in past 14 days?: No Do you have a sore throat?: No Do you have a cough?: No Do you have any weakness?: No Do you have any diarrhea?: No Are you experiencing any unusual bleeding?: No Do you have any muscle aches/pain?: No Do you have any abdominal pain?: No Are you experiencing loss of taste or smell?: No Other Medical History Have you received the Flu Vaccine for this season: Yes Have you received the Pneumonia Vaccine: Yes ROS Obtained: Yes Systems reviewed as appropriate & no additional complaints except as documented Physical Exam General General appearance: alert and in no apparent distress Comment: Cervical collar placed after arrival. Head Head exam: other (Nasal bridge swelling, tenderness. Dried blood around nares. No septal hematoma.) Eye Eye exam: Present normal appearance, PERRL and EOMI ENT ENT exam: Present normal external ear exam and other (Dried blood to posterior oropharynx) Neck Neck exam: Present other (Cervical collar placed after arrival. Tenderness to midline C spine without deformity or step-off) Chest Chest inspection: Present symmetric chest wall rise; Absent tenderness Respiratory Respiratory exam: Present normal lung sounds bilaterally; Absent respiratory distress, wheezes or stridor Cardiovascular Cardiovascular exam: Present regular rate and normal rhythm Abdominal Exam Abdominal exam: Present soft, tenderness (Diffuse) and guarding (Generalized); Absent distention or rigidity Extremities Exam Extremities exam: Present normal inspection and full ROM; Absent tenderness or edema Back Exam Back exam: Present normal inspection and tenderness (Midline thoracic and lumbar spine without deformity or step-off. Well-healed surgical scar in the mid lumbar spine) Neurological Exam Neurological exam: Present alert, oriented X3 and other (Intermittently will have twitching motion of his left hand. Changing story regarding events leading up to presentation to the emergency department.) Psychiatric Psychiatric exam: Present anxious Skin Skin exam: Present warm and dry Medical Decision Making Medical Records Screening: Per USPSTF and CDC recommendations, given the prevalence of disease in our region, it is our hospital?s policy to screen for HIV and viral Hepatitis for all patients aged 18 and over and those with ongoing risk factors. Kevin Inquiry Pt receiving controlled substance: No Vital Signs: 10/10/24 18:30 10/10/24 19:15 10/10/24 19:20 Temperature 98.2 F Temperature Source Axillary Pulse Rate 79 76 Pulse Rate [Right] 63 Respiratory Rate 20 Blood Pressure 132/64 125/66 Blood Pressure [Right Arm] 62/37 L Blood Pressure Mean [Right Arm] 45 02 Sat by Pulse Oximetry 93 L 95 96 Oxygen Delivery Method Room Air Room Air Room Air 10/10/24 19:25 10/10/24 19:35 10/10/24 19:40 Temperature Temperature Source Pulse Rate 76 76 75 Pulse Rate [Right] Respiratory Rate Blood Pressure 130/73 134/72 126/74 Blood Pressure [Right Arm] Blood Pressure Mean [Right Arm] 02 Sat by Pulse Oximetry 97 96 96 Oxygen Delivery Method Room Air Room Air Room Air 10/10/24 23:51 Temperature 98.2 F Temperature Source Oral Pulse Rate 67 Pulse Rate [Right] Respiratory Rate 18 Blood Pressure 107/68 L Blood Pressure [Right Arm] Blood Pressure Mean [Right Arm] 02 Sat by Pulse Oximetry Oxygen Delivery Method Room Air Lab Data Lab Results 10/10/24 18:18: WBC 10.7, RBC 4.20 L, Hgb 12.1 L, Hct 36.6 L, MCV 87.1, MCH 28.8, MCHC 33.1, RDW 15.3, Plt Count 326, MPV 10.3, Neut % (Auto) 85.5 H, Lymph % (Auto) 9.3 L, [place] % (Auto) 4.4, Eos % (Auto) 0.1, Baso % (Auto) 0.4, Neut # (Auto) 9.1 H, Lymph # (Auto) 1.0, [place] # (Auto) 0.5, Eos # (Auto) 0.0, Baso # (Auto) 0.0, PT 11.3, INR 1.02, APTT 24.6, VBG pH 7.40, VBG pCO2 31.2 L, VBG pO2 49.1 H, VBG HCO3 18.9 L, VBG Total CO2 19.9 L, VBG O2 Saturation 84.8 H, VBG Base Excess -5.8 L, VBG Lactic Acid 6.6 H, Sodium 135 L, Potassium 4.3, Chloride 103, Carbon Dioxide 18 L, Anion Gap 18.3 H, BUN 11, Creatinine 1.30 H, Estimated Creat Clear 50, Estimated GFR 54 L, Est GFR ( Amer) 66, Glucose 146 H, Calcium 9.5, Total Bilirubin 0.6, AST 32, ALT 20, Alkaline Phosphatase 73, Total Protein 7.1, Albumin 4.3, Globulin 2.8, Albumin/Globulin Ratio 1.5, Lipase 42, Salicylates < 1.0 L, Acetaminophen < 10 L, Plasma/Serum Alcohol < 10, HCV Ab CALLIE w/Rflx PCR Qn Reactive, HIV Ag/Ab Combo Qual Negative 10/10/24 21:54: Urine Color Yellow, Urine Appearance Clear, Urine pH 6.0, Ur Specific [place] 1.015, Urine Protein Negative, Urine Glucose (UA) Negative, Urine Ketones Negative, Urine Blood Negative, Urine Nitrate Negative, Urine Bilirubin Negative, Urine Urobilinogen 0.2, Ur Leukocyte Esterase Negative, Urine WBC 3-5, Urine Bacteria Trace, Urine Opiates Screen Negative, Urine Methadone Screen Negative, Ur Barbituates Screen Negative, Ur Phencyclidine Scrn Negative, Ur Amphetamines Screen TNP, U Benzodiazepines Scrn Negative, Urine Cocaine Screen Negative, U Marijuana (THC) Screen Negative 10/10/24 18:18 10/10/24 18:18 Orders (Tests/Meds): ED MEDICATIONS Discontinued Medications Generic Name Dose Route Start Last Admin Trade Name Beena PRN Reason Stop Dose Admin Acetaminophen 1,000 mg 10/10/24 19:41 10/10/24 19:47 Acetaminophen 1,000mg/100ml Vial IV 10/10/24 19:42 1,000 mg ONCE ONE Administration Sodium Chloride 500 mls @ 999 mls/hr 10/10/24 18:31 10/10/24 19:23 Sod Chlor 0.9% 1000ml Bag IV 10/10/24 19:01 999 mls/hr .Q31M ONE Administration Sodium Chloride 500 mls @ 999 mls/hr 10/10/24 19:08 10/10/24 19:23 Sod Chlor 0.9% 1000ml Bag IV 10/10/24 19:38 999 mls/hr .Q31M ONE Administration Iopamidol 160 ml 10/10/24 18:59 10/10/24 19:02 Iopamidol-370 (76%);100ml Bottle IV 10/10/24 19:00 160 ml ONCE ONE Administration Sodium Chloride 10 ml 10/10/24 18:29 Sodium Chloride 0.9% 10ml Flush Syringe IV 11/09/24 18:28 NEEDED PRN Maintain IV Site Sodium Chloride 10 ml 10/10/24 18:59 10/10/24 19:02 Sodium Chloride 0.9% 10ml Syr (Rad Only) IV 10/10/24 19:00 10 ml ONCE ONE Administration Sodium Chloride 50 ml 10/10/24 18:59 10/10/24 19:02 0.9 % Sodium Chloride 50 Ml Vial IV 10/10/24 19:00 50 ml ONCE ONE Administration ORDERS Category Date Time Status CT angio abd/pel - TRAUMA Stat Cat Scan 10/10/24 18:[address] angio chest - dissection Stat Cat Scan 10/10/24 18:[address] angio head Stat Cat Scan 10/10/24 18:[address] angio neck Stat Cat Scan 10/10/24 18:[address] bony pelvis Stat Cat Scan 10/10/24 18:[address] cervical spine wo con Stat Cat Scan 10/10/24 18:[address] facial bones wo con Stat Cat Scan 10/10/24 18:[address] head/brain wo con Stat Cat Scan 10/10/24 18:[address] lumbar spine wo con Stat Cat Scan 10/10/24 18:[address] thoracic spine wo con Stat Cat Scan 10/10/24 18:31 Completed POCUS Point of Care (ER Only) Stat Exams 10/10/24 18:30 Completed XR chest portable Stat Exams 10/10/24 18:30 Completed XR pelvis 1-2V Stat Exams 10/10/24 18:30 Completed Acetaminophen Stat Lab 10/10/24 18:18 Completed Activated Partial Thrombo Time Stat Lab 10/10/24 18:18 Completed Complete Blood Count Auto Diff Stat Lab 10/10/24 18:18 Completed Comprehensive Metabolic Panel Stat Lab 10/10/24 18:18 Completed Ethyl Alcohol Stat Lab 10/10/24 18:18 Completed HCV RNA PCR, Quant Stat Lab 10/10/24 18:18 Received HIV Combo Stat Lab 10/10/24 18:18 Completed Hepatitis C Ab Qual. W/ RFX Stat Lab 10/10/24 18:18 Completed Lipase Stat Lab 10/10/24 18:18 Completed Prothrombin Time INR Stat Lab 10/10/24 18:18 Completed Salicylate Stat Lab 10/10/24 18:18 Completed UA [Urinalysis and Microscopic] Stat Lab 10/10/24 21:54 Completed UDS [Drug Screen,Urine] Stat Lab 10/10/24 21:54 Completed VBG [Venous Blood Gas] Stat RT 10/10/24 18:18 Completed ECG Data Tracing #1: I reviewed this ECG and interpreted as documented below: Normal sinus rhythm with ventricular rate of [address] elevation or depression. QTc normal at 424. Medical Decision Narrative: Adryan Ferguson is a 73-year-old male, per chart review, with a history of GERD, hypertension, Crohn's disease, methamphetamine abuse, who presents to the emergency department via EMS for altered mental status. Per EMS, patient's stated that he was having seizures all day but denies any history of seizures. Reportedly, EMS stated that he was found facedown on the floor and was somewhat somnolent but then became combative shortly after. They noted nasal bleeding and were concerned he has a nasal bone fracture. They stated that he refused to put on the c-collar. EMS said that he was alert but ended up having to be handcuffed due to combativeness. He received intranasal Narcan without improvement. Patient is alert and oriented x 3 but is complaining of lower back pain. He initially stated that he fell down the steps but was noted to have been found upstairs. Patient then stated that he fell while taking out the garbage. He denies any alcohol use, recreational drug use. It was noted that patient was recently taken off his gabapentin as there was concern for abuse. Patient arrives with gabapentin pill bottle filled with some sort of gummy medication. He has bisoprolol and pantoprazole as well. Per EMS, patient maintained systolics in the 107 range. Initial blood pressure was hypotensive with systolic 60 to and 1 L normal saline was initiated and patient placed into Trendelenburg position. Repeat blood pressure improved to 107 systolic with MAP of 71. Patient was taken out of Trendelenburg position. Patient is alert, moving all extremities spontaneously, following commands. He is alert and oriented x 3, although he is confused to events that led to his presentation today. Patient has generalized abdominal tenderness with generalized guarding but no rebound. He has midline cervical, thoracic and lumbar spine tenderness. He has swelling and tenderness over the bridge of his nose with dried blood around both nares but no septal hematoma. He is maintaining his airway appropriately. Pupils equal round reactive to light. Extraocular movements intact. Breath sounds present bilaterally. No chest wall tenderness. Pelvis is stable. No injuries to the extremities were appreciated. Differential diagnosis includes, but is not limited to: Intracranial hemorrhage, Facial bone fracture, cervical spine fracture, thoracic spine fracture, lumbar spine fracture, pelvic fracture, intra-abdominal injury such as splenic laceration or liver laceration, intrathoracic injury such as aortic dissection, rib fractures, pneumothorax, among others. Gabapentin withdrawal/overdose, drug overdose, UTI, seizure, vascular injury within the head or neck, metabolic derangement, electrolyte derangement, among others. Workup in the emergency department included: Trauma imaging including CT head without contrast, CT face, CT C/T/L-spine without contrast, CT bony pelvis, CTA head and neck, CTA chest, CTA abdomen pelvis, [id number] E-FAST, chest x-ray, pelvic x-ray, EKG, acetaminophen level, CMP, UDS, UA, alcohol level, salicylate level, fingerstick blood glucose, CMP, CBC, lipase, VBG, lactate, PT/INR, APTT. Bedside E-FAST was performed and was negative. See procedure note for details. CT imaging interpreted by me personally. Patient has a nasal bone fracture but no other facial bone fractures. No intracranial hemorrhage, mass or midline shift. No C/T/L-spine fractures. No acute intra-abdominal or intrathoracic pathology. No pelvic bone fractures. Discussed patient's case with , Shabana over the phone. She states that he was complaining of lower back pain and pain in all of his joints yesterday but was otherwise normal. Today, he stated that he overall did not feel well. She states that he was laying on the couch and had an episode where his extremities would twitch and then it turned into full body shaking, lack of responsiveness and drooling. She states that this lasted approximately 2 to 3 minutes and he was confused afterwards. He then had another episode while standing and fell, also lasting 2 to 3 minutes. She then got him to the bed and heard a thump and she found him on the floor having more seizure-like activity and blood coming from his nose. She states that after each episode he would be confused. She called 911 and police and EMS arrived. She notes that he was then handcuffed by EMS but was still confused. She denies any recent drug use. She does state that he was previously prescribed gabapentin and Percocet but has not taken for some time as far as she is aware, however she did find a bottle of gabapentin today but did not see if it was prescribed to him or ask him if he took it. She denies any known history of seizures. She states that these episodes all occurred over the course of 2 hours. Patient remains alert and continues to have jerking motions intermittently of his upper extremities. He states that he did take gabapentin 600 mg and has continued to take it daily and believes it is still prescribed to him. He states that he has never had seizures before. Patient's hypotension has improved after 2 L normal saline. Urinalysis and UDS is pending at this time. I spoke with Dr. Capps at the transfer center as it is felt the patient will need neurology evaluation given concern for new onset seizures vs myoclonus/confusion secondary to Gabapentin overuse. Dr. Capps graciously agreed to accept the patient to the [facility] emergency department. Will send patient via ground EMS and transfer patient to [facility] emergency department. Procedures FAST Exam FAST Exam 1: Additional Comments: Limited EFAST ultrasound Indication: Blunt trauma Views: LUQ, RUQ, Pelvis, Limited Cardiac, Limited Thoracic Interpretation: Peritoneal Free Fluid: Absent Pericardial effusion: Absent Right thoracic free Fluid: Absent Left thoracic Free Fluid: Absent Right lung pneumothorax: Absent Left Lung pneumothorax: Absent Impression: Negative EFAST ultrasound Images were saved to permanent archive The study was technically adequate CPT 45169-69 (limited cardiac) 06892-55 (limited abdominal) 14633-44 (chest) This study was performed by me, and I personally interpreted all images/videos. Based on my clinical judgement, these images were adequate/inadequate and did/did not necessitate further imaging. Critical Care Critical Care Time Critical Care Time: Yes Attestation: On 10/10/24, the high probability of a clinically significant, sudden or life threatening deterioration of the following system(s) required my full and direct attention, intervention and personal management. The time I documented below is in addition to time spent performing reported procedures but includes the following listed in this critical care notation. Total Time Total Critical Care Time: 60
[2024-10-10 18:43] LABS: INR 1.02 (0.9-1.1); Prothrombin Time 11.3 seconds (10.1-12.5)
[2024-10-10 18:45] LABS: Alanine Aminotransferase 20 U/L (12-78); Albumin Level 4.3 g/dl (3.5-5.0); Albumin/Globulin Ratio 1.5 (1.1-1.8); Alkaline Phosphatase 73 U/L (38-126); Anion Gap 18.3 mEq/L (5-15); Aspartate Amino Transferase 32 U/L (17-59); Bilirubin,Total 0.6 mg/dl (0.2-1.3); Blood Urea Nitrogen 11 mg/dl (9-20); Calcium 9.5 mg/dl (8.4-10.2); Carbon Dioxide 18 mmol/L (22.0-30.0); Chloride 103 mmol/L (98-107); Creatinine Clearance Estimated 50 mL/min (50-200); Creatinine,Serum 1.30 mg/dl (0.66-1.25); Estimated Glomerular Filt Rate 54 ml/min (>60); GFR (African American) 66 ML/MIN (>60); Globulin 2.8 g/dL (1.3-3.2); Glucose 146 mg/dl (74-100); Potassium 4.3 mmoL/L (3.5-5.1); Sodium 135 mmol/L (136-145); Total Protein,Serum 7.1 g/dl (6.3-8.2)
[2024-10-10 18:47] LABS: Activated Partial Thrombo Time 24.6 seconds (22.8-30.6)
[2024-10-10 18:48] LABS: VBG HCO3 18.9 mmol/L (23-30); VBG PCO2 31.2 mmol/L (35-51); VBG PH 7.40 mmol/L (7.31-7.41); VBG PO2 49.1 mmol/L (28-40)
[2024-10-10 18:50] LABS: Lactate Venous 6.6 mmol/L (0.4-2.0)
[2024-10-10] MEDS: 0.9 % SODIUM CHLORIDE 50 ML VIAL IV (19:02)
[2024-10-10] MEDS: IOPAMIDOL-370 (76%);100ML BOTTLE 160 ML IV (19:02)
[2024-10-10] MEDS: SODIUM CHLORIDE 0.9% 10ML SYR (RAD ONLY) 10 ML IV (19:02)
[2024-10-10 19:11] LABS: Lipase 42 U/L (23-300)
[2024-10-10 19:14] LABS: Acetaminophen < 10 ug/ml (10-30); Salicylate < 1.0 mg/dL (2.0-20.0)
[2024-10-10] MEDS: 0.9 % SODIUM CHLORIDE 1000ML 500 ML 999 ML IV ×2 (19:23)
[2024-10-10 19:46] LABS: Hepatitis C Ab Qual. W/ RFX REACTIVE (Negative)
[2024-10-10] MEDS: ACETAMINOPHEN 1,000MG/100ML VIAL 1000 MG IV (19:47)
--- NOTE | 2024-10-10 19:52 | ECG_ITS ---
APPROVED REPORT Exam: Resting ECG HR:75 bpm ECG Measurements Heart Rate 75 AXES VA 191 P 38 QRSd 104 QRS 30 QT 395 T 38 QTc 424 Conclusion SINUS RHYTHM NORMAL ECG Electronically signed by : ARAMIS PEÑA, 10/14/2024 08:19:33
--- NOTE | 2024-10-10 20:33 | PC.NURSE ---
Spoke with [facility] about speaking with neuro, we are awaiting a call back at this time
--- NOTE | 2024-10-10 21:02 | PC.NURSE ---
Dr Walsh on phone with
[2024-10-10 21:58] LABS: Microscopic, Urine URINE MICROSCOPIC (MICROSCOPIC)
[2024-10-10 22:00] LABS: Bilirubin,Urine Negative (Negative); Color,Urine YELLOW (Yellow); Glucose,Urine (UA) Negative (Negative); Ketones,Urine Negative (Negative); Leukocyte Esterase,Urine Negative (Negative); PH,Urine 6.0 (5.0-8.5); Protein,Urine Negative (Negative); Specific Gravity, Urine 1.015 (1.005-1.030); Urobilinogen,Urine 0.2 EU/dl (0.2)
--- NOTE | 2024-10-10 22:05 | PC.NURSE ---
report called to Kathi EUBANKS at
[2024-10-10 22:14] LABS: Barbiturates Screen,Urine Negative ng/ml (<200)
[2024-10-10 22:15] LABS: Benzodiazepines Screen,Urine Negative ng/ml (<200)
[2024-10-10 22:17] LABS: Methadone Screen,Urine Negative ng/ml (<300)
[2024-10-10 22:18] LABS: Opiate Screen,Urine Negative ng/ml (<300)
[2024-10-10 22:19] LABS: Phencyclidine Screen,Urine Negative ng/ml (<25)
[2024-10-10 22:24] LABS: Bacteria,Urine Trace /lpf
[2024-10-10 22:44] LABS: Reflex Lactic Add Lactic Reflex
== END 2024-10-11 00:01 | disposition other institution (70) ==
PROVIDERS: Emergency Provider Student in an Organized Health Care Education/Training Program; PCP Family Medicine
DX: R56.9 Unspecified convulsions (principal); S02.2XXA Fracture of nasal bones, initial encounter for closed fracture; R10.817 Generalized abdominal tenderness; R74.02 Elevation of levels of lactic acid dehydrogenase [LDH]; I95.89 Other hypotension; R41.82 Altered mental status, unspecified; F17.210 Nicotine dependence, cigarettes, uncomplicated; W19.XXXA Unspecified fall, initial encounter; Z11.59 Encounter for screening for other viral diseases; Z11.4 Encounter for screening for human immunodeficiency virus [HIV]
CPT/HCPCS: 70450; 70486; 70496; 70498; 71045; 71275; 72125; 72128; 72131; 72170; 72192; 74174; 80053; 80307; 80320; 80329; 80358; 81001; 82803; 83690; 85025; 85610; 85730; 86803; 87389; 87522; 93005; 96374; 99291; J0131; J7030; Q9967